=== PATIENT | female | born 1985 ===

== ENCOUNTER → 2018-06-30 | Outpatient (CLI) | payer BC ==
[2018-06-30 10:30] VITALS: BP 122/83; PULSE 76; RESP 18; TEMP 97.5; BMI 19.0
--- NOTE | 2018-06-30 11:20 | P.HPOB ---
History of Present Illness H&P Date: 06/30/18 Chief Complaint: The patient is here for her routine gynecologic exam. This is a 32-year-old with an LMP of 06/23/2018. The patient states she has regular menses every month. Over the past 2 to 3 months she has had occasional dyspareunia with sexual intercourse or immediately after sexual intercourse. She describes the discomfort as crampy pain which seems to resolve about 40 minutes after intercourse. This does not happen every time. She believes she had similar symptoms years ago and was told she had an ovarian cyst. Her his status post vasectomy. She is otherwise without complaints. Review of Systems She has lost about 10 pounds over the last few months and attributes this to increased stress. She denies respiratory, cardiac, or G.I. problems. Past Medical History Past Medical History: No Reported History Additional Past Medical History / Comment(s): Headaches. 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 She has had a ruptured ovarian cyst in the past. History of Any Multi-Drug Resistant Organisms: None Reported Past Surgical History: Section (x 3) Additional Past Surgical History / Comment(s): D&C times 2 for spontaneous abortions. 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 She has 3 adopted children in addition to her 3 biological children. She lives in [place] and her works in the [employer]. She recently moved from [place] (2017). - Past Family History Father Family Medical History: No Reported History Additional Family Medical History / Comment(s): Father has an autoimmune disorder. breast cancer PGM Mother Family Medical History: Cancer (Renal) Additional Family Medical History / Comment(s): breast cancer M aunt, M grandmother. Sister(s) Family Medical History: Cancer (Renal) Medications and Allergies Home Medications Medication Instructions Recorded Confirmed Type Ibuprofen 200 mg PO QID PRN 06/30/18 06/30/18 History Allergies Allergy/AdvReac Type Severity Reaction Status Date / Time No Known Allergies Allergy Verified 06/30/18 11:15 Exam Vital Signs Temp Pulse Resp BP 06/30/18 10:10 97.5 F L 76 18 122/83 Intake and Output 06/29/18 06/30/18 06/30/18 22:59 06:59 14:59 Other: Weight 50.349 kg Height 5'4", BMI 19.1. This is a well-developed well-nourished thin white female who is alert and oriented times 3 in no acute distress. HEENT: Within normal limits. NECK: Supple without mass or thyromegaly. CHEST AND LUNGS: Clear to auscultation. HEART: Regular rate and rhythm. BREASTS: Are without mass or discharge. AXILLARY EXAM: Negative for adenopathy. BACK: Negative for CVA tenderness. ABDOMEN: Soft, nontender, without palpable masses. PELVIC EXAM: Normal external genitalia. Cervix and vagina appear normal with small dark menstrual blood. There is no cervical motion tenderness. There is no unusual discharge. There is no evidence of prolapse. The uterus is midposition, nongravid size and nontender. There are no palpable adnexal masses or tenderness. The right ovary is palpable, but normal size presently 2.5 cm and is nontender. RECTAL EXAM: negative for mass or tenderness and is negative for occult blood. EXTREMITIES: Nontender. IMPRESSION: 1. 32-year-old female whose status post vasectomy with normal gynecologic exam. 2. Recent intermittent dyspareunia either during or after intercourse without any significant physical findings at this time. PLAN: 1. Pap smear was performed. 2. Self breast awareness was discussed. 3. Because of her family history of recommended that she start screening mammograms at age 34. 4. Pelvic ultrasound will be scheduled. 5. I have recommended that she established with the primary care physician. 6. She will return in one year and PRN.
== END | disposition home or self-care (01) ==
LOC: WWCWWP 09:54
PROVIDERS: ATTEND Obstetrics & Gynecology
DX: Z53.9 Procedure and treatment not carried out, unspecified reason (principal)

== ENCOUNTER → 2018-07-26 | Outpatient (CLI) | payer BC ==
--- NOTE | 2018-07-26 11:03 | US ---
EXAMINATION TYPE: US pelvic complete DATE OF EXAM: 07/26/2018 COMPARISON: NONE CLINICAL HISTORY: N94.1 Dyspareunia. hx of ovarian cysts. 3 c-sections. Pain during intercourse. TECHNIQUE: Transabdominal (TA). Transabdominal sonographic images of the pelvis were acquired. Date of LMP: 07/20/2018, EXAM MEASUREMENTS: Uterus: 8.6 x 4.4 x 3.7 cm Endometrial Stripe: 0.4 cm Right Ovary: 3.1 x 2.1 x 1.8 cm Left Ovary: 4.0 x 2.3 x 2.0 cm 1. Uterus: Anteverted wnl 2. Endometrium: wnl 3. Right Ovary: follicle seen 4. Left Ovary: follicles seen 5. Bilateral Adnexa: wnl 6. Posterior cul-de-sac: no free fluid IMPRESSION: 1. Ovarian follicles as noted.
--- NOTE | 2018-07-28 13:08 | P.PN ---
Progress Note - Text Progress Note Date: 07/28/18 OUTPATIENT FOLLOW-UP NOTE TEST(S)/RESULTS: pelvic ultrasound on 07/26/2018 showed small ovarian follicles and was otherwise unremarkable METHOD OF NOTIFICATION: the patient asked that I leave results on her voicemail. A message regarding the unremarkable pelvic ultrasound was left on her voicemail. PATIENT COMMENTS: [] DIAGNOSIS: cramping associated with sexual intercourse that typically occurs after intercourse. Unremarkable pelvic ultrasound DISCUSSION: on her voicemail, I left suggestions of possibly trying ibuprofen prior to sexual activity, trial of using condoms or withdrawal to see if this helps the postcoital cramping. PLAN: if she continues to have these symptoms, I have asked her to call back or make an appointment at which time we can consider referral for possible laparoscopic examination.
== END | disposition home or self-care (01) ==
LOC: RADUSWWP 09:37
PROVIDERS: ATTEND Obstetrics & Gynecology
DX: N94.10 Unspecified dyspareunia (principal)
CPT/HCPCS: 76856

== ENCOUNTER 2018-11-07 19:00 | Emergency (ER) | payer BC ==
[2018-11-07] MEDS ORDERED: DIAZEPAM 5 MG/ML 2 ML INJ IVP STA (19:35)
[2018-11-07] MEDS ORDERED: MECLIZINE 25 MG TAB PO STA (19:35)
--- NOTE | 2018-11-07 19:49 | ED ---
General Adult HPI - General Source: patient, RN notes reviewed Mode of arrival: ambulatory Limitations: no limitations <Conner Pan - Last Filed: 11/07/18 20:10> <Nacho Perry - Last Filed: 11/07/18 20:54> - General Chief complaint: Dizziness Stated complaint: Dizziness, nauseated Time Seen by Provider: 11/07/18 19:00 - History of Present Illness Initial comments: This is a 33-year-old female who presents emergency Department complaining of dizziness. Patient states she's had episodes of this for years and has never been evaluated. Patient states normally only last a short period time but today 's been ongoing since Thursday and she is getting to the point she still nauseated she is afraid she is started vomiting. Patient states the symptoms are definitely worse with movement of her head per patient states that she sits still the symptoms subside. Patient denies any headache. Patient denies any numbness weakness per patient denies any tinnitus per patient denies any change in her hearing. Patient denies any palpitations chest pain difficulty breathing first breath per patient denies any upper respiratory infection recently. Patient denies any abdominal pain patient denies any vomiting but is very nauseous. (Conner Pan) - Related Data Home Medications Medication Instructions Recorded Confirmed Ibuprofen 400 mg PO QID PRN 06/30/18 11/07/18 Meclizine [Antivert] 25 mg PO ONCE 11/07/18 11/07/18 Previous Rx's Medication Instructions Recorded Meclizine [Antivert] 25 mg PO TID PRN #15 tab 11/07/18 Allergies Allergy/AdvReac Type Severity Reaction Status Date / Time No Known Allergies Allergy Verified 11/07/18 19:25 Review of Systems ROS Other: All systems not noted in ROS Statement are negative. <Conner Pan - Last Filed: 11/07/18 20:10> ROS Other: All systems not noted in ROS Statement are negative. <Nacho Perry - Last Filed: 11/07/18 20:54> ROS Statement: Those systems with pertinent positive or pertinent negative responses have been documented in the HPI. Past Medical History Past Medical History: No Reported History Additional Past Medical History / Comment(s): Headaches. 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 She has had a ruptured ovarian cyst in the past. History of Any Multi-Drug Resistant Organisms: None Reported, C-DIFF Date of last positivie culture/infection: 2011 Past Surgical History: Section Additional Past Surgical History / Comment(s): D&C times 2 for spontaneous abortions. Past Anesthesia/Blood Transfusion Reactions: Postoperative Nausea & Vomiting ( PONV) Past Psychological History: No Psychological Hx Reported Smoking Status: Former smoker Past Alcohol Use History: Occasional Past Drug Use History: None Reported - Past Family History Father Family Medical History: No Reported History Additional Family Medical History / Comment(s): Father has an autoimmune disorder. breast cancer PGM Mother Family Medical History: Cancer (Renal) Additional Family Medical History / Comment(s): breast cancer M aunt, M grandmother. Sister(s) Family Medical History: Cancer (Renal) <Conner Pan - Last Filed: 11/07/18 20:10> General Exam Limitations: no limitations <Conner Pan - Last Filed: 11/07/18 20:10> <Nacho Perry - Last Filed: 11/07/18 20:54> - General Exam Comments Initial Comments: GENERAL: Patient is well-developed and well-nourished. Patient is nontoxic and well- hydrated and is in mild distress. ENT: Neck is soft and supple. No significant lymphadenopathy is noted. Oropharynx is clear. Moist mucous membranes. Neck has full range of motion without eliciting any pain. EYES: The sclera were anicteric and conjunctiva were pink and moist. Extraocular movements were intact and pupils were equal round and reactive to light. Eyelids were unremarkable. PULMONARY: Unlabored respirations. Good breath sounds bilaterally. No audible rales rhonchi or wheezing was noted. CARDIOVASCULAR: There is a regular rate and rhythm without any murmurs gallops or rubs. ABDOMEN: Soft and nontender with normal bowel sounds. No palpable organomegaly was noted. There is no palpable pulsatile mass. SKIN: Skin is clear with no lesions or rashes and otherwise unremarkable. NEUROLOGIC: Patient is alert and oriented x3. Cranial nerves II through XII are grossly intact. Motor and sensory are also intact. Normal speech, volume and content. Symmetrical smile. Cerebellar exam grossly intact. MUSCULOSKELETAL: Normal extremities with adequate strength and full range of motion. No lower extremity swelling or edema. No calf tenderness. LYMPHATICS: No significant lymphadenopathy is noted PSYCHIATRIC: Normal psychiatric evaluation. (Conner Pan) Vital Signs 11/07/18 11/07/18 11/07/18 19:06 19:49 20:34 Temperature 97.7 F Pulse Rate 79 87 Respiratory 18 17 16 Rate Blood Pressure 149/93 125/80 O2 Sat by Pulse 100 98 Oximetry Medical Decision Making - Lab Data Result diagrams: 11/07/18 19:35 11/07/18 19:35 <Conner Pan - Last Filed: 11/07/18 20:10> - Lab Data Result diagrams: 11/07/18 19:35 11/07/18 19:35 <Nacho Perry - Last Filed: 11/07/18 20:54> - Medical Decision Making EKG shows normal sinus rhythm at 93 bpm DC interval 116 QRS is 90 QT interval 356 QTC is 442. Patient's EKG shows no ST segment elevation or depression or T wave abnormalities are noted. Dr. Snell will be taking over the care of this patient at 8 PM (Conner Pan) This patient was signed out to me pending the results of the computed tomography scan. I have reviewed this and the radiology read. I have reevaluated the patient and she is feeling better. We'll have the patient follow up with neurology for further evaluation of her chronic intermittent vertigo symptoms. We also discussed the return parameters. (Nacho Perry) - Lab Data Lab Results 11/07/18 11/07/18 11/07/18 Range/Units 19:35 19:35 19:35 WBC 6.9 (3.8-10.6) k/uL RBC 4.57 (3.80-5.40) m/uL Hgb 13.6 (11.4-16.0) gm/dL Hct 42.1 (34.0-46.0) % MCV 92.0 (80.0-100.0) fL MCH 29.8 (25.0-35.0) pg MCHC 32.4 (31.0-37.0) g/dL RDW 12.3 (11.5-15.5) % Plt Count 225 (150-450) k/uL Neutrophils % 66 % Lymphocytes % 26 % Monocytes % 4 % Eosinophils % 2 % Basophils % 0 % Neutrophils # 4.5 (1.3-7.7) k/uL Lymphocytes # 1.8 (1.0-4.8) k/uL Monocytes # 0.3 (0-1.0) k/uL Eosinophils # 0.1 (0-0.7) k/uL Basophils # 0.0 (0-0.2) k/uL PT (9.0-12.0) sec INR (<1.2) APTT (22.0-30.0) sec Sodium 140 (137-145) mmol/L Potassium 3.9 (3.5-5.1) mmol/L Chloride 109 H (98-107) mmol/L Carbon Dioxide 22 (22-30) mmol/L Anion Gap 9 mmol/L BUN 15 (7-17) mg/dL Creatinine 0.77 (0.52-1.04) mg/dL Est GFR (CKD-EPI)AfAm >90 (>60 ml/min/1.73 sqM) Est GFR (CKD-EPI)NonAf >90 (>60 ml/min/1.73 sqM) Glucose 94 (74-99) mg/dL Calcium 9.5 (8.4-10.2) mg/dL Magnesium 2.1 (1.6-2.3) mg/dL Total Bilirubin 1.4 H (0.2-1.3) mg/dL AST 23 (14-36) U/L ALT 17 (9-52) U/L Alkaline Phosphatase 50 (38-126) U/L Total Creatine Kinase 71 (30-135) U/L Troponin I <0.012 (0.000-0.034) ng/mL Total Protein 7.7 (6.3-8.2) g/dL Albumin 4.7 (3.5-5.0) g/dL 11/07/18 Range/Units 19:35 WBC (3.8-10.6) k/uL RBC (3.80-5.40) m/uL Hgb (11.4-16.0) gm/dL Hct (34.0-46.0) % MCV (80.0-100.0) fL MCH (25.0-35.0) pg MCHC (31.0-37.0) g/dL RDW (11.5-15.5) % Plt Count (150-450) k/uL Neutrophils % % Lymphocytes % % Monocytes % % Eosinophils % % Basophils % % Neutrophils # (1.3-7.7) k/uL Lymphocytes # (1.0-4.8) k/uL Monocytes # (0-1.0) k/uL Eosinophils # (0-0.7) k/uL Basophils # (0-0.2) k/uL PT 10.5 (9.0-12.0) sec INR 1.0 (<1.2) APTT 27.1 (22.0-30.0) sec Sodium (137-145) mmol/L Potassium (3.5-5.1) mmol/L Chloride (98-107) mmol/L Carbon Dioxide (22-30) mmol/L Anion Gap mmol/L BUN (7-17) mg/dL Creatinine (0.52-1.04) mg/dL Est GFR (CKD-EPI)AfAm (>60 ml/min/1.73 sqM) Est GFR (CKD-EPI)NonAf (>60 ml/min/1.73 sqM) Glucose (74-99) mg/dL Calcium (8.4-10.2) mg/dL Magnesium (1.6-2.3) mg/dL Total Bilirubin (0.2-1.3) mg/dL AST (14-36) U/L ALT (9-52) U/L Alkaline Phosphatase (38-126) U/L Total Creatine Kinase (30-135) U/L Troponin I (0.000-0.034) ng/mL Total Protein (6.3-8.2) g/dL Albumin (3.5-5.0) g/dL Disposition <Conner Pan - Last Filed: 11/07/18 20:10> Is patient prescribed a controlled substance at d/c from ED?: No <Nacho Perry - Last Filed: 11/07/18 20:54> Clinical Impression: Vertigo Disposition: HOME SELF-CARE Condition: Good Instructions: Dizziness (ED) Prescriptions: Meclizine [Antivert] 25 mg PO TID PRN #15 tab PRN Reason: Vertigo Referrals: None,Stated [Primary Care Provider] - 1-2 days Pattie Cuevas MD [STAFF PHYSICIAN] - 1-2 days
[2018-11-07 19:56] LABS: Basophils % (A) 0 %; Eosinophils # (A) 0.1 k/uL (0-0.7); Eosinophils % (A) 2 %; HCT 42.1 % (34.0-46.0); HGB 13.6 gm/dL (11.4-16.0); Lymphocytes # (A) 1.8 k/uL (1.0-4.8); Lymphocytes % (A) 26 %; MCH 29.8 pg (25.0-35.0); MCHC 32.4 g/dL (31.0-37.0); Mean Platelet Volume 7.1; Monocytes # (A) 0.3 k/uL (0-1.0); Monocytes % (A) 4 %; Neutrophils # (A) 4.5 k/uL (1.3-7.7); Neutrophils % (A) 66 %; Platelet Count 225 k/uL (150-450); RBC 4.57 m/uL (3.80-5.40); RDW 12.3 % (11.5-15.5); WBC 6.9 k/uL (3.8-10.6)
[2018-11-07 20:08] LABS: ALT 17 U/L (9-52); AST 23 U/L (14-36); Albumin 4.7 g/dL (3.5-5.0); Alkaline Phosphatase 50 U/L (38-126); Anion Gap 9 mmol/L; Blood Urea Nitrogen 15 mg/dL (7-17); Calcium 9.5 mg/dL (8.4-10.2); Carbon Dioxide 22 mmol/L (22-30); Chloride 109 mmol/L (98-107); Glucose 94 mg/dL (74-99); Magnesium 2.1 mg/dL (1.6-2.3); Potassium 3.9 mmol/L (3.5-5.1); Sodium 140 mmol/L (137-145); Total Bilirubin 1.4 mg/dL (0.2-1.3); Total Protein 7.7 g/dL (6.3-8.2)
[2018-11-07 20:11] LABS: Creatine Kinase 71 U/L (30-135); Partial Thromboplastin Time 27.1 sec (22.0-30.0); Prothrombin Time 10.5 sec (9.0-12.0)
--- NOTE | 2018-11-07 20:12 | CT ---
EXAMINATION TYPE: CT brain wo con DATE OF EXAM: 11/07/2018 COMPARISON: None HISTORY: Dizziness x2 days CT DLP: 1032.4 mGycm. Automated Exposure Control for Dose Reduction was Utilized. TECHNIQUE: CT scan of the head is performed without contrast. FINDINGS: Ventricles and sulci appear normal. There is no mass effect nor midline shift. There is no sign of intracranial hemorrhage. The calvarium is intact. IMPRESSION: Normal head CT scan.
--- NOTE | 2018-11-07 20:15 | XR ---
EXAMINATION TYPE: XR chest 2V DATE OF EXAM: 11/07/2018 COMPARISON: NONE HISTORY: Dizziness and chest pain TECHNIQUE: Frontal and lateral views of the chest are obtained. FINDINGS: Heart and mediastinum are normal. Lungs are clear. Diaphragm is normal. Bony thorax appear s normal. There are chest leads. IMPRESSION: Normal chest
[2018-11-07 20:23] LABS: Troponin I <0.012 ng/mL (0.000-0.034)
[2018-11-07 20:54] LABS: Creatine Kinase MB 0.4 ng/mL (0.0-2.4)
[2018-11-07 21:09] VITALS: BP 117/78; PULSE 71; RESP 17; TEMP 98.5
== END 2018-11-07 21:00 | disposition home or self-care (01) ==
LOC: EC 19:00
DX: R42 Dizziness and giddiness (principal); R11.2 Nausea with vomiting, unspecified; Z87.891 Personal history of nicotine dependence; Z79.899 Other long term (current) drug therapy
CPT/HCPCS: 36415; 93005; 80053; 82550; 82553; 83735; 84484; 85025; 85610; 85730; 71046; 70450; 99284; 96374; J3360

== ENCOUNTER 2019-01-19 11:00 | Day surgery (SDC) | payer BC ==
[2019-01-17 10:29] VITALS: BMI 19.7
[~2019-01-19 11:00] MED LIST: LACTATED RINGERS 1,000 ML IV SCH
[2019-01-19 12:16] VITALS: TEMP 97.6
[2019-01-19] MEDS ORDERED: PROPOFOL 10 MG/ML 20 ML VIAL IV ONE (12:42)
[2019-01-19] MEDS ORDERED: ONDANSETRON 4 MG/2 ML VIAL ONE (12:42)
[2019-01-19] MEDS ORDERED: LIDOCAINE 1% INJ 10MG/ML (20 ML MDV) ONE (12:42)
--- NOTE | 2019-01-19 12:52 | P.PCN ---
Date of Procedure: 01/19/19 Procedure(s) Performed: BRIEF HISTORY: Patient is a 33-year-old, pleasant, white female, scheduled for an upper endoscopy as a part of evaluation of globus-like sensation in her throat area for the last 6 months duration. She denies any dysphagia. He occasionally has heartburn and she was treated with H2 blockers for few weeks with no help.. PROCEDURE PERFORMED: Esophagogastroduodenoscopy with biopsy PREOPERATIVE DIAGNOSIS: Globus sensation her throat. IV sedation per anesthesia. PROCEDURE: After informed consent was obtained, the patient was brought into the endoscopy unit. IV sedation was administered by Anesthesia under continuous monitoring. Initially the Olympus GIF-140 video endoscope was inserted into the mouth. Esophagus intubated without any difficulty. It was gradually advanced into the stomach and duodenum and carefully examined. The bulb and the second part of the duodenum appeared normal. The scope at this time was withdrawn to the stomach, adequately insufflated with air, and upon careful examination, mucosa of the antrum, body, cardia and the fundus appeared normal. The scope was then withdrawn into the esophagus. The GE junction was located at 39 cm from the incisors. The esophagus appeared normal. There were no erosions or ulcerations seen. Multiple biopsies were done from esophagus to rule out years of age esophagitis. The proximal cervical esophagus was carefully examined and appeared normal and the patient tolerated the procedure well. IMPRESSION: 1. Normal-appearing esophagus with no evidence of esophagitis or esophageal stricture. 2. Normal-appearing stomach and duodenum. RECOMMENDATIONS: The findings of this examination were discussed with the patient as well as a family. She was advised to follow with the biopsy results.
[2019-01-19 13:14] VITALS: BP 11/76; PULSE 54; RESP 18
== END 2019-01-19 13:35 | disposition home or self-care (01) ==
LOC: ORWHC2ENDO 11:00
PROVIDERS: ATTEND Internal Medicine Gastroenterology
DX: F45.8 Other somatoform disorders (principal); R12 Heartburn; K21.9 Gastro-esophageal reflux disease without esophagitis; Z79.1 Long term (current) use of non-steroidal anti-inflammatories (NSAID); Z79.899 Other long term (current) drug therapy
CPT/HCPCS: 81025; 43239; J2405; J2001; J2704

== ENCOUNTER → 2019-09-13 | Outpatient (CLI) | payer BC ==
[2019-09-13 16:03] VITALS: BP 122/77; PULSE 73; RESP 16; TEMP 98.2; BMI 20.5
--- NOTE | 2019-09-13 17:14 | P.HPOB ---
History of Present Illness H&P Date: 09/13/19 Chief Complaint: The patient is here for her routine gynecologic exam. This is a 33-year-old with an LMP of 08/30/2019. The patient's is status post vasectomy. The patient continues to have occasional dyspareunia, but this seems to be not a major problem. She has noticed it on occasion after her menstrual period. She had a pelvic ultrasound last year which was unremarkable. She is otherwise without complaints. Review of Systems She is getting about 9 pounds over the last year. She denies respiratory or cardiac problems. GI: Occasional diarrhea about once a week. Past Medical History Past Medical History: GERD/Reflux Additional Past Medical History / Comment(s): MIGRAINES, HX OF Peptic Ulcer, ANEMIA and vertigo. 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 Previous ruptured ovarian cyst. History of Any Multi-Drug Resistant Organisms: None Reported Date of last positivie culture/infection: 2011 Past Surgical History: Section Additional Past Surgical History / Comment(s): D&C times 2 for spontaneous abortions., . X3. Past Anesthesia/Blood Transfusion Reactions: Motion Sickness, Postoperative Nausea & Vomiting (PONV) Past Psychological History: Anxiety Smoking Status: Former smoker Past Alcohol Use History: Occasional (2 per week) Additional Past Alcohol Use History / Comment(s): SMOKED YOUNG TEENAGER. 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 She has 3 adopted children in addition to her 3 biological children. 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 She lives in [place] and her works in the [employer] - Past Family History Father Additional Family Medical History / Comment(s): Father has an autoimmune disorder. breast cancer PGM and PGGM. Mother Family Medical History: Cancer Additional Family Medical History / Comment(s): Renal cancer. Maternal aunt had breast cancer and renal cancer. Sister(s) Additional Family Medical History / Comment(s): Precancerous breast cyst. Medications and Allergies Home Medications Medication Instructions Recorded Confirmed Type Meclizine [Antivert] 12.5 mg PO ONCE 09/13/19 09/13/19 History Allergies Allergy/AdvReac Type Severity Reaction Status Date / Time No Known Allergies Allergy Verified 09/13/19 15:57 Exam Vital Signs Temp Pulse Resp BP Pulse Ox 09/13/19 15:59 98.2 F 73 16 122/77 99 Intake and Output 09/13/19 09/13/19 09/13/19 06:59 14:59 22:59 Other: Weight 54.431 kg Height 5 feet 4 inches, weight 120 pounds, BMI 20.6. This is a well-developed well-nourished white female who is alert and oriented times 3 in no acute distress. HEENT: Within normal limits. NECK: Supple without mass or thyromegaly. CHEST AND LUNGS: Clear to auscultation. HEART: Regular rate and rhythm. BREASTS: Are without mass or discharge. AXILLARY EXAM: Negative for adenopathy. BACK: Negative for CVA tenderness. ABDOMEN: Soft, nontender, without palpable masses. PELVIC EXAM: Normal external genitalia. Cervix and vagina appear normal. There is no unusual discharge. There is no evidence of prolapse. The uterus is midposition, nongravid size and nontender. There are no palpable adnexal masses or tenderness. RECTAL EXAM: negative for mass or tenderness. EXTREMITIES: Nontender. IMPRESSION: 1. 33-year-old female whose is status post vasectomy with normal gynecologic exam. 2. History of occasional dyspareunia with no significant physical findings at this time and history of negative pelvic ultrasound on 07/26/2018. 3. Family history of breast cancer in multiple second-degree relatives. PLAN: 1. Pap smear was deferred since she had a normal one on 06/30/2018. 2. Self breast awareness was discussed with the patient. 3. We will plan on having her get a baseline screening mammogram in 1 year at age 34 because of her family history. 4. Osteoporosis prevention was discussed. I have stressed the importance of adequate calcium, vitamin D and regular exercise. Recommended amounts of calcium and vitamin D were also discussed. 5. She was instructed to make an appointment if she is having worsening dyspareunia. At that time we can consider referral for diagnostic laparoscopy. 6. She was advised to return in one year for her annual well woman exam.
--- NOTE | 2019-10-04 16:51 | P.PN ---
Progress Note - Text Progress Note Date: 10/04/19 The patient has called complaining of heavier menstrual periods. She states they are regular every month but they can be heavy for about 3 days during the beginning of each menstrual period. She sometimes has to change her tampons up to twice an hour. She has also noticed that her breasts can become very sore before each menstrual period. Impression: Hypermenorrhea Plan: Trial of meclofenamate sodium 100 mg by mouth 3 times a day when necessary for heavy menstrual flow up to 6 days per cycle. In electronic prescription will be sent to [facility] on [address]. She will call in approximately 3 months if she is not noticing significant improvement. If this is the case we can consider endometrial ablation as an option.
== END ==
LOC: WWCWWP 15:34
PROVIDERS: ATTEND Obstetrics & Gynecology
DX: Z53.9 Procedure and treatment not carried out, unspecified reason (principal)

== ENCOUNTER 2019-12-12 12:37 | Emergency (ER) | payer BC ==
[2019-12-12 12:45] VITALS: BP 150/86; TEMP 98.8
--- NOTE | 2019-12-12 14:14 | XR ---
EXAMINATION TYPE: XR chest 2V DATE OF EXAM: 12/12/2019 COMPARISON: CXR from 11/07/2018. HISTORY: Cough and congestion. TECHNIQUE: Frontal and lateral views of the chest are obtained. FINDINGS: There is no focal air space opacity, pleural effusion, or pneumothorax seen. The cardiac silhouette size is within normal limits. The osseous structures are intact. IMPRESSION: No suspicious acute airspace opacity. No significant change from prior.
--- NOTE | 2019-12-12 14:34 | ED ---
URI HPI - General Chief Complaint: Upper Respiratory Infection Stated Complaint: sinus drainage Time Seen by Provider: 12/12/19 12:58 Source: patient Mode of arrival: ambulatory Limitations: no limitations - History of Present Illness Initial Comments: Patient is a 34-year-old female presenting to emergency Department with complaints of sinus drainage and pressure has been increasing over the past week and a half. Patient is also complaining of fatigue, mild shortness of breath and cough. She states she went to an urgent care last week and they did do a strep and influenza which were both negative. They told her this is most likely viral in nature. Patient states she has been trying [id number] medications without relief of symptoms. She feels like her symptoms are worsening. She has no other complaints at this time. Patient denies fever, abdominal pain, nausea, vomiting. On arrival to the ER, her vital signs are stable. - Related Data Home Medications Medication Instructions Recorded Confirmed Meclizine [Antivert] 12.5 mg PO ONCE 09/13/19 09/13/19 Previous Rx's Medication Instructions Recorded Meclofenamate Sodium 100 mg PO TID PRN #30 capsule 10/04/19 Amoxicillin/Potassium Clav 1 tab PO BID 5 Days #10 tab 12/12/19 [Augmentin 875-125 Tablet] Allergies Allergy/AdvReac Type Severity Reaction Status Date / Time No Known Allergies Allergy Verified 09/13/19 15:57 Review of Systems ROS Statement: Those systems with pertinent positive or pertinent negative responses have been documented in the HPI. ROS Other: All systems not noted in ROS Statement are negative. Past Medical History Past Medical History: GERD/Reflux Additional Past Medical History / Comment(s): MIGRAINES, HX OF Peptic Ulcer, ANEMIA and vertigo. Previous ruptured ovarian cyst. History of Any Multi-Drug Resistant Organisms: None Reported Date of last positivie culture/infection: 2011 Past Surgical History: Section Additional Past Surgical History / Comment(s): D&C times 2 for spontaneous abo rtions., . X3. Past Anesthesia/Blood Transfusion Reactions: Motion Sickness, Postoperative Nausea & Vomiting (PONV) Past Psychological History: Anxiety Smoking Status: Former smoker Past Alcohol Use History: Occasional Past Drug Use History: None Reported - Past Family History Father Additional Family Medical History / Comment(s): Father has an autoimmune disorder. breast cancer PGM and PGGM. Mother Family Medical History: Cancer Additional Family Medical History / Comment(s): Renal cancer. Maternal aunt had breast cancer and renal cancer. Sister(s) Family Medical History: Cancer Additional Family Medical History / Comment(s): Precancerous breast cyst. General Exam - General Exam Comments Initial Comments: GENERAL: Well-appearing, well-nourished and in no acute distress. HEAD: Atraumatic, normocephalic. EYES: Pupils equal round and reactive to light, extraocular movements intact, sclera anicteric, conjunctiva are normal. ENT: TMs normal, nares patent, oropharynx clear without exudates. Moist mucous membranes. Pain with palpation over the maxillary sinuses bilaterally. NECK: Normal range of motion, supple without lymphadenopathy or JVD. LUNGS: Breath sounds clear to auscultation bilaterally and equal. No wheezes rales or rhonchi. HEART: Regular rate and rhythm without murmurs, rubs or gallops. ABDOMEN: Soft, nontender, normoactive bowel sounds. No guarding, no rebound. No masses appreciated. : Deferred EXTREMITIES: Normal range of motion, no pitting or edema. No clubbing or cyanosis. NEUROLOGICAL: Normal speech, normal gait. PSYCH: Normal mood, normal affect. SKIN: Warm, Dry, normal turgor, no rashes or lesions noted. Limitations: no limitations Course Vital Signs 12/12/19 12/12/19 12/12/19 12:42 12:44 13:44 Temperature 98.8 F Pulse Rate 85 78 Respiratory 18 20 20 Rate Blood Pressure 150/86 145/85 O2 Sat by Pulse 100 100 Oximetry 12/12/19 12/12/19 14:44 14:52 Temperature Pulse Rate 72 Respiratory 20 20 Rate Blood Pressure 150/86 O2 Sat by Pulse Oximetry Medical Decision Making - Medical Decision Making She is a 34-year-old female presenting with sinus type symptoms for the last week and a half. Patient to receive influenza and strep test at urgent care last week that were negative. Chest x-ray today shows no acute abnormalities. Discussed with patient this is likely a sinus infection. Patient be started on Augmentin for her symptoms. Patient will follow up with her PCP if symptoms persist. Patient is in agreement with this plan and care. Return parameters were discussed with the patient she verbalized understanding. Disposition Clinical Impression: Sinusitis Disposition: HOME SELF-CARE Condition: Stable Instructions (If sedation given, give patient instructions): Sinusitis (ED) Additional Instructions: Please return to the Emergency Department if symptoms worsen or any other concerns. Take Mobic as prescribed. May use Tylenol or Motrin for symptom control. Follow up with PCP if symptoms persist. Prescriptions: Amoxicillin/Potassium Clav [Augmentin 875-125 Tablet] 1 tab PO BID 5 Days #10 tab Is patient prescribed a controlled substance at d/c from ED?: No Referrals: Lidya Perez MD [Primary Care Provider] - 1-2 days
[2019-12-12 14:51] VITALS: RESP 20
[2019-12-12 14:52] VITALS: PULSE 72
== END 2019-12-12 14:53 | disposition home or self-care (01) ==
LOC: EC 12:37
DX: J32.9 Chronic sinusitis, unspecified (principal); Z87.891 Personal history of nicotine dependence
CPT/HCPCS: 71046; 99283

== ENCOUNTER 2020-07-19 15:34 | Emergency (ER) | payer BC ==
[2020-07-19 15:44] VITALS: BP 143/86; PULSE 91; RESP 18; TEMP 98.3
--- NOTE | 2020-07-19 15:51 | ED ---
ENT HPI - General Chief complaint: Dental/Oral Stated complaint: Dental Pain Time Seen by Provider: 07/19/20 15:45 Source: patient Mode of arrival: ambulatory Limitations: no limitations - History of Present Illness Initial comments: 34-year-old female presented for right posterior tooth/jaw pain and facial swelling. Patient states she has had aching in the right lower aspect of her jaw under her most posterior tooth. She states has been increasing for the past 2 days when she noticed now some mild right-sided lower facial swelling she denies swelling of the neck she denies swelling below the tongue denies a difficulty breathing swelling she denies any sore throat fevers chills or rashes. Patient is no additional complaints she denies . Patient denies any direct trauma to the area. Patient has no additional complaints. Upon arrival she appears well nontoxic in no acute distress. SHe is afebrile. - Related Data Home Medications Medication Instructions Recorded Confirmed Meclizine [Antivert] 12.5 mg PO ONCE 09/13/19 09/13/19 Previous Rx's Medication Instructions Recorded Meclofenamate Sodium 100 mg PO TID PRN #30 capsule 10/04/19 Amoxicillin/Potassium Clav 1 tab PO BID 5 Days #10 tab 12/12/19 [Augmentin 875-125 Tablet] Amoxicillin/Potassium Clav 1 tab PO Q12HR 7 Days #14 tab 07/19/20 [Augmentin 875-125 Tablet] Allergies Allergy/AdvReac Type Severity Reaction Status Date / Time No Known Allergies Allergy Verified 07/19/20 15:43 Review of Systems ROS Statement: Those systems with pertinent positive or pertinent negative responses have been documented in the HPI. ROS Other: All systems not noted in ROS Statement are negative. Past Medical History Past Medical History: GERD/Reflux Additional Past Medical History / Comment(s): MIGRAINES, HX OF Peptic Ulcer, ANEMIA and vertigo. Previous ruptured ovarian cyst. History of Any Multi-Drug Resistant Organisms: None Reported Date of last positivie culture/infection: 2011 Past Surgical History: Section Additional Past Surgical History / Comment(s): D&C times 2 for spontaneous abortions., . X3. Past Anesthesia/Blood Transfusion Reactions: Motion Sickness, Postoperative Kishore sea & Vomiting (PONV) Past Psychological History: Anxiety Smoking Status: Never smoker Past Alcohol Use History: Occasional Past Drug Use History: None Reported - Past Family History Father Additional Family Medical History / Comment(s): Father has an autoimmune disorder. breast cancer PGM and PGGM. Mother Family Medical History: Cancer Additional Family Medical History / Comment(s): Renal cancer. Maternal aunt had breast cancer and renal cancer. Sister(s) Family Medical History: Cancer Additional Family Medical History / Comment(s): Precancerous breast cyst. General Exam - General Exam Comments Initial Comments: General: The patient is awake and alert, in no distress, and does not appear acutely ill. Eye: Pupils are equal, round and reactive to light, extra-ocular movements are intact. No nystagmus. There is normal conjunctiva bilaterally. No signs of icterus. Ears, nose, mouth and throat: There are moist mucous membranes and no oral lesions. Cavity noted of the right lower tooth # 31, there is pain to percussion, there is no gum swelling, redness or fluctulance. No swelling below tongue or angle of mandible. No enlarged glands appreciated, uvula midline no redness of oropharynx. Patient does not appear toxic. no noted nuchal rigidity. Mild right sided facial swelling. Neck: The neck is supple, there is no tenderness or JVD. Musculoskeletal: Normal ROM, no tenderness. Strength 5/5. Sensation intact. Radial pulses equal bilaterally 2+. Neurological: A&O x 3. CN II-XII intact grossly, There are no obvious motor or sensory deficits. Coordination appears grossly intact. Speech is normal. Skin: Skin is warm and dry and no rashes or lesions are noted. Psychiatric: Cooperative, appropriate mood & affect, normal judgment. Limitations: no limitations Course Vital Signs 07/19/20 07/19/20 15:40 16:01 Temperature 98.3 F 98.3 F Pulse Rate 91 91 Respiratory 18 18 Rate Blood Pressure 143/86 143/86 O2 Sat by Pulse 100 100 Oximetry Medical Decision Making - Medical Decision Making exam concerning for dental infection, no signs of ludwigs angina or airway compromise at this time. patient denies will be treated with augmentin and is to f/u with dentist, corrina states she attempted to call dentist before coming here and cant get in for two week, recommended finding new dentist or calling back explaining concern for infection with more timely f/u. Patient is aware of return parameters and is agreeable to care plan and discharge. Disposition Clinical Impression: Pain, dental Disposition: HOME SELF-CARE Condition: Good Instructions (If sedation given, give patient instructions): Dental Abscess (ED), Toothache (ED) Additional Instructions: Please use medication as discussed. Please follow-up with dentist in next 2-3 days, return for increasing swelling/pain/fevers/swelling below tongue/difficulty breathing/rash. Please return to emergency room if the symptoms increase or worsen or for any other concerns. Prescriptions: Amoxicillin/Potassium Clav [Augmentin 875-125 Tablet] 1 tab PO Q12HR 7 Days #14 tab Is patient prescribed a controlled substance at d/c from ED?: No Referrals: Lidya Perez MD [Primary Care Provider] - 1-2 days Time of Disposition: 15:51
== END 2020-07-19 16:03 | disposition home or self-care (01) ==
LOC: EC 15:34
DX: K08.89 Other specified disorders of teeth and supporting structures (principal); Z79.899 Other long term (current) drug therapy
CPT/HCPCS: 99282

== ENCOUNTER 2020-07-20 06:54 | Emergency (ER) | payer BC ==
[2020-07-20 07:03] VITALS: BP 123/80; PULSE 94; RESP 18; TEMP 98.5
[2020-07-20] MEDS ORDERED: ONDANSETRON 4 MG ODT STARTER PACK 2 TAB BTL PO STA (07:33)
[2020-07-20] MEDS ORDERED: traMADol 50 MG STARTER PACK 3 TAB BTL PO STA (07:33)
--- NOTE | 2020-07-20 07:33 | ED ---
ENT HPI - General Chief complaint: ENT Stated complaint: Sore throat, jaw pain Time Seen by Provider: 07/20/20 07:16 Source: patient Mode of arrival: ambulatory Limitations: no limitations - History of Present Illness Initial comments: Patient is a 34-year-old female presenting to the emergency Department with complaints of right-sided dental pain increasing over the past 2 weeks. Patient states she did call her dentist was not able to get in for another 2 weeks. She did come to the ER yesterday for the same issue and was prescribed Augmentin. Patient states she has tried taking this twice now and has been nauseous and vomited shortly after both times. Patient states the pain is still increasing. She has been taking ibuprofen and Tylenol for this which does take the edge off. She denies any fever or chills, cough or shortness of breath. She is no further complaints at this time. Upon arrival to the ER, her vital signs are stable. - Related Data Home Medications Medication Instructions Recorded Confirmed Meclizine [Antivert] 12.5 mg PO ONCE 09/13/19 09/13/19 Previous Rx's Medication Instructions Recorded Meclofenamate Sodium 100 mg PO TID PRN #30 capsule 10/04/19 Amoxicillin/Potassium Clav 1 tab PO BID 5 Days #10 tab 12/12/19 [Augmentin 875-125 Tablet] Amoxicillin/Potassium Clav 1 tab PO Q12HR 7 Days #14 tab 07/19/20 [Augmentin 875-125 Tablet] Penicillin V Potassium [Pen Vee K] 500 mg PO QID 7 Days #28 tablet 07/20/20 Allergies Allergy/AdvReac Type Severity Reaction Status Date / Time amoxicillin [From Augmentin] AdvReac Nausea Verified 07/20/20 07:03 clavulanic acid AdvReac Nausea Verified 07/20/20 07:03 [From Augmentin] Review of Systems ROS Statement: Those systems with pertinent positive or pertinent negative responses have been documented in the HPI. ROS Other: All systems not noted in ROS Statement are negative. Past Medical History Past Medical History: GERD/Reflux Additional Past Medical History / Comment(s): MIGRAINES, HX OF Peptic Ulcer, ANEMIA and vertigo. Previous ruptured ovarian cyst. History of Any Multi-Drug Resistant Organisms: None Reported Date of last positivie culture/infection: 2011 Past Surgical History: Section Additional Past Surgical History / Comment(s): D&C times 2 for spontaneous abortions., . X3. Past Anesthesia/Blood Transfusion Reactions: Motion Sickness, Postoperative Nausea & Vomiting (PONV) Past Psychological History: Anxiety Smoking Status: Never smoker Past Alcohol Use History: Occasional Past Drug Use History: None Reported - Past Family History Father Additional Family Medical History / Comment(s): Father has an autoimmune disorder. breast cancer PGM and PGGM. Mother Family Medical History: Cancer Additional Family Medical History / Comment(s): Renal cancer. Maternal aunt had breast cancer and renal cancer. Sister(s) Family Medical History: Cancer Additional Family Medical History / Comment(s): Precancerous breast cyst. General Exam - General Exam Comments Initial Comments: GENERAL: Patient is well-developed and well-nourished. Patient is nontoxic and in no acute distress. HEAD: Atraumatic, normocephalic. EYES: Pupils equal round and reactive to light, extraocular movements intact, sclera anicteric, conjunctiva are normal. Eyelids were unremarkable. ENT: TMs normal, nares patent, oropharynx clear without exudates. Moist mucous membranes. No visible dental abscess seen. Pain with palpation of the right lower molars, mild erythema of the gumline. NECK: Normal range of motion, supple without lymphadenopathy or JVD. LUNGS: Unlabored respirations. Breath sounds clear to auscultation bilaterally and equal. No wheezes rales or rhonchi. HEART: Regular rate and rhythm without murmurs, rubs or gallops. ABDOMEN: Soft, nontender, normoactive bowel sounds. No guarding, no rebound. No masses appreciated. : Deferred MUSCULOSKELETAL: Normal extremities with adequate strength and normal range of motion, no pitting or edema. No clubbing or cyanosis. NEUROLOGICAL: Patient is alert and oriented x 3. Motor and sensory are also intact. Cranial nerves II through XII grossly intact. Symmetrical smile. Normal speech, normal gait. PSYCH: Normal mood, normal affect. SKIN: Warm, Dry, normal turgor, no rashes or lesions noted. Limitations: no limitations Course Vital Signs 07/20/20 07:00 Temperature 98.5 F Pulse Rate 94 Respiratory 18 Rate Blood Pressure 123/80 O2 Sat by Pulse 98 Oximetry Medical Decision Making - Medical Decision Making Patient is a 34-year-old female here for right-sided dental pain has been increasing over the past 2 weeks. She was here yesterday for same complaint and was prescribed Augmentin however she has been nauseous and vomiting with this medication. I do not see visible abscess to drain on exam. There is no significant swelling or fever. I will switch her antibiotic to penicillin and will also prescribe her a pain medicine here today in the ER as well as some Zofran. Patient also noted that she has had a history of strain of strep, we did do a strep test today, culture is pending. Patient is agreement this plan of care. She'll follow-up with her dentist. Return parameters were discussed with the patient and she verbalized understanding. Disposition Clinical Impression: Pain, dental Disposition: HOME SELF-CARE Condition: Stable Instructions (If sedation given, give patient instructions): Dental Abscess (ED) Additional Instructions: Please return to the Emergency Department if symptoms worsen or any other concerns. Take antibiotic as prescribed. May alternate between Tylenol and Motrin for discomfort. Follow-up with dentist as discussed. Prescriptions: Penicillin V Potassium [Pen Vee K] 500 mg PO QID 7 Days #28 tablet Is patient prescribed a controlled substance at d/c from ED?: No Referrals: Lidya Perez MD [Primary Care Provider] - 1-2 days
== END 2020-07-20 07:49 | disposition home or self-care (01) ==
LOC: EC 06:54
DX: K08.89 Other specified disorders of teeth and supporting structures (principal); R11.2 Nausea with vomiting, unspecified; Z88.0 Allergy status to penicillin
CPT/HCPCS: 87081; 87430; 99283

== ENCOUNTER → 2020-10-10 | Outpatient (CLI) | payer BC ==
[2020-10-10 09:45] VITALS: BP 130/80; PULSE 74; RESP 16; TEMP 98.5
--- NOTE | 2020-10-10 10:20 | P.HPOB ---
History of Present Illness H&P Date: 10/10/20 Chief Complaint: The patient is here for her routine gynecologic exam and ma mmogram. This is a 35-year-old with an LMP of 09/17/2020. The patient's is status post vasectomy. Menstrual periods are monthly, but can fluctuate by a few days each month. She states she has used the meclofenamate sodium infrequently as needed for heavy menstrual flow and this is helpful for her heavy menstrual days. She thinks she had an ovarian cyst a few months ago when she had some midcycle dyspareunia. This has resolved. Review of Systems The patient has gained 5 pounds over the last year. She denies respiratory, cardiac, or G.I. problems. She has had occasional anxiety. Past Medical History Past Medical History: GERD/Reflux Additional Past Medical History / Comment(s): MIGRAINES, HX OF Peptic Ulcer, ANEMIA and vertigo. 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 History of Any Multi-Drug Resistant Organisms: None Reported Date of last positivie culture/infection: 2011 Past Surgical History: Section Additional Past Surgical History / Comment(s): D&C times 2 for spontaneous abortions., . X3. EGD 2019. Past Anesthesia/Blood Transfusion Reactions: Motion Sickness, Postoperative Naus ea & Vomiting (PONV) Past Psychological History: Anxiety Smoking Status: Former smoker Past Alcohol Use History: Occasional (2 per week) Additional Past Alcohol Use History / Comment(s): SMOKED YOUNG TEENAGER. 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 She has 3 adopted children in addition to 3 biological children. 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 - Past Family History Father Additional Family Medical History / Comment(s): Father has an autoimmune disorder. breast cancer PGM and PGGM. Mother Family Medical History: Cancer Additional Family Medical History / Comment(s): Renal cancer. Maternal aunt had breast cancer and renal cancer. Sister(s) Family Medical History: Cancer Additional Family Medical History / Comment(s): Precancerous breast cyst. Medications and Allergies Home Medications Medication Instructions Recorded Confirmed Type Meclizine [Antivert] 12.5 mg PO ONCE 09/13/19 10/10/20 History Meclofenamate Sodium 100 mg PO TID PRN #30 capsule 10/10/20 Rx Plexus 1 packet PO DAILY 10/10/20 10/10/20 History Allergies Allergy/AdvReac Type Severity Reaction Status Date / Time amoxicillin [From Augmentin] AdvReac Nausea Verified 10/10/20 09:21 clavulanic acid AdvReac Nausea Verified 10/10/20 09:21 [From Augmentin] Exam Vital Signs Temp Pulse Resp BP Pulse Ox 10/10/20 09:23 98.5 F 74 16 130/80 98 Intake and Output 10/09/20 10/10/20 10/10/20 22:59 06:59 14:59 Other: Weight 56.699 kg Height 5 feet 4 inches, weight 125 pounds, BMI 21.5. This is a well-developed well-nourished white female who is alert and oriented times 3 in no acute distress. HEENT: Within normal limits. NECK: Supple without mass or thyromegaly. CHEST AND LUNGS: Clear to auscultation. HEART: Regular rate and rhythm. BREASTS: Are without mass or discharge. AXILLARY EXAM: Negative for adenopathy. BACK: Negative for CVA tenderness. ABDOMEN: Soft, nontender, without palpable masses. PELVIC EXAM: Normal external genitalia. Cervix and vagina appear normal. Cervix appears nulliparous. There is no unusual discharge. There is no evidence of prolapse. The uterus is multiparous, nongravid size, is anteverted and nontender. There are no palpable adnexal masses or tenderness. RECTAL EXAM: negative for mass or tenderness. EXTREMITIES: Nontender. IMPRESSION: 1. 35-year-old premenopausal female whose is status post vasectomy with normal gynecologic exam. 2. Mild hypermenorrhea improved with meclofenamate sodium. 3. Family history of breast cancer in 3 second-degree relatives. PLAN: 1. Pap smear co-testing was performed. 2. Self breast awareness was discussed with the patient. 3. Screening baseline mammogram will be done today because of her strong family history. 4. Osteoporosis prevention was discussed. I have stressed the importance of adequate calcium, vitamin D and regular exercise. Recommended amounts of calcium and vitamin D were also discussed. 5. Continue meclofenamate sodium when necessary for heavy menstrual flow. The electronic prescription has been sent to [facility] on [facility]. 6. She was advised to return in one year for her annual well woman exam.
--- NOTE | 2020-10-10 10:34 | MM ---
Reason for exam: screening (asymptomatic). Baseline mammogram. History: Family history of breast cancer in sister and breast cancer in maternal aunt at age 60. Physical Findings: Dr. Paul did breast exam. MG 3D Screening Mammo W/Cad Bilateral CC, MLO, and XCCL view(s) were taken. The breast tissue is heterogeneously dense. This may lower the sensitivity of mammography. There is no discrete abnormality. These results were verbally communicated with the patient and result sheet given to the patient on 10/10/20. ASSESSMENT: Negative, BI-RAD 1 RECOMMENDATION: Routine screening mammogram of both breasts at age 39.
== END | disposition home or self-care (01) ==
LOC: WWCWWP 09:13
PROVIDERS: ATTEND Obstetrics & Gynecology
DX: Z12.31 Encounter for screening mammogram for malignant neoplasm of breast (principal)
CPT/HCPCS: 77063; 77067

== ENCOUNTER 2020-11-04 16:03 | Emergency (ER) | payer BC ==
[2020-11-04 16:10] VITALS: RESP 18; TEMP 98.1
--- NOTE | 2020-11-04 16:24 | ED ---
Chest Pain HPI - General Chief Complaint: Chest Pain Stated Complaint: chest pain Time Seen by Provider: 11/04/20 16:11 Source: patient Mode of arrival: ambulatory Limitations: no limitations - History of Present Illness Initial Comments: 35-year-old female presenting to the emergency department with a chief complaint of chest pain. Patient states her symptoms began earlier this morning while she was at [employer]. Patient reports she started developing a dull ache under her right rib in the right upper quadrant abdominal area. Patient reports the pain feels like dull and sharp and alternating pattern. She denies any alleviating or aggravating factors. Denies any associated shortness of breath does report some nausea but no vomiting. Denies any constipation or diarrhea. Denies any vaginal urinary symptoms. Does have surgical history of multiple C-sections and D&C. Denies any back pain. Patient reports she eats a lot of fatty food. Sta neri that most of her foot is fried. - Related Data Home Medications Medication Instructions Recorded Confirmed Ibuprofen [Motrin Ib] 400 mg PO Q8HR PRN 11/04/20 11/04/20 Meclizine HCl 25 mg PO Q6H PRN 11/04/20 11/04/20 Allergies Allergy/AdvReac Type Severity Reaction Status Date / Time amoxicillin [From Augmentin] AdvReac Nausea Verified 11/04/20 16:54 clavulanic acid AdvReac Nausea Verified 11/04/20 16:54 [From Augmentin] Review of Systems ROS Statement: Those systems with pertinent positive or pertinent negative responses have been documented in the HPI. ROS Other: All systems not noted in ROS Statement are negative. EKG Findings - EKG Comments: EKG Findings:: Sinus rhythm with no ST or T-wave changes. Ventricular rate 92, AL 116, QRS 82, QTC 422. Past Medical History Past Medical History: GERD/Reflux Additional Past Medical History / Comment(s): MIGRAINES, HX OF Peptic Ulcer, ANEMIA and vertigo. 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 History of Any Multi-Drug Resistant Organisms: None Reported Date of last positivie culture/infection: 2011 Past Surgical History: Section Additional Past Surgical History / Comment(s): D&C times 2 for spontaneous a bortions., . X3. EGD 2019. Past Anesthesia/Blood Transfusion Reactions: Motion Sickness, Postoperative Nausea & Vomiting (PONV) Past Psychological History: Anxiety Smoking Status: Former smoker Past Alcohol Use History: Occasional Past Drug Use History: None Reported - Past Family History Father Additional Family Medical History / Comment(s): Father has an autoimmune disorder. breast cancer PGM and PGGM. Mother Family Medical History: Cancer Additional Family Medical History / Comment(s): Renal cancer. Maternal aunt had breast cancer and renal cancer. Sister(s) Family Medical History: Cancer Additional Family Medical History / Comment(s): Precancerous breast cyst. General Exam Limitations: no limitations General appearance: alert, in no apparent distress Head exam: Present: atraumatic, normocephalic, normal inspection Eye exam: Present: normal appearance, PERRL, EOMI Pupils: Present: normal accommodation ENT exam: Present: normal exam, normal oropharynx, mucous membranes moist, TM's normal bilaterally, normal external ear exam Neck exam: Present: normal inspection, full ROM. Absent: tenderness Respiratory exam: Present: normal lung sounds bilaterally. Absent: respiratory distress, wheezes, rales, rhonchi, stridor, chest wall tenderness Cardiovascular Exam: Present: regular rate, normal rhythm, normal heart sounds. Absent: systolic murmur, diastolic murmur GI/Abdominal exam: Present: soft, tenderness (Right upper quadrant abdominal pain. Positive Covington sign.), normal bowel sounds. Absent: distended, guarding, rebound, rigid Extremities exam: Present: normal inspection, full ROM, normal capillary refill. Absent: tenderness, pedal edema, joint swelling, calf tenderness Back exam: Present: normal inspection, full ROM. Absent: tenderness, CVA tend erness (R), CVA tenderness (L) Neurological exam: Present: alert, oriented X3, normal gait Psychiatric exam: Present: normal affect, normal mood. Absent: depressed, agitated Skin exam: Present: warm, dry, intact, normal color Course Vital Signs 11/04/20 11/04/20 11/04/20 16:06 16:46 17:00 Temperature 98.1 F Pulse Rate 124 H 101 H 77 Respiratory 18 18 Rate Blood Pressure 154/89 143/98 O2 Sat by Pulse 97 100 Oximetry 11/04/20 17:30 Temperature Pulse Rate 80 Respiratory 18 Rate Blood Pressure 127/90 O2 Sat by Pulse 99 Oximetry Chest Pain MDM - MDM 35-year-old female presenting to emergency Department with a chief complaint of chest pain. On physical examination, patient did have tenderness in the right upper quadrant of the abdomen with a positive Covington sign. I suspect this is more of abdominal pain rather than chest pain. No associated shortness of breath. She doesn't have any cardiac risk factors. Right upper quadrant ultrasound is unremarkable. CBC and CMP are unremarkable except for mild elevation in bilirubin. Troponin and d-dimer are negative. Patient is advised to follow with the primary care physician. Also advised the patient to eat a lo w-fat diet and see if her symptoms improve. Strict return primary's were thoroughly discussed the patient is an attending agreeable. Case discussed with physician. Disposition Clinical Impression: Right upper quadrant abdominal pain Disposition: HOME SELF-CARE Condition: Stable Instructions (If sedation given, give patient instructions): Low Fat Diet (ED) Additional Instructions: Follow-up with her primary care physician. Return to emergency department if symptoms worsen. Is patient prescribed a controlled substance at d/c from ED?: No Referrals: Lidya Perez MD [Primary Care Provider] - 1-2 days Time of Disposition: 18:27
[2020-11-04] MEDS ORDERED: SODIUM CHLORIDE 0.9% 1,000 ML IV STA (16:35)
[2020-11-04 17:03] LABS: Basophils # (A) 0.1 k/uL (0-0.2); Basophils % (A) 1 %; Eosinophils % (A) 0 %; HCT 41.7 % (34.0-46.0); HGB 14.2 gm/dL (11.4-16.0); Lymphocytes # (A) 1.6 k/uL (1.0-4.8); Lymphocytes % (A) 22 %; MCH 30.9 pg (25.0-35.0); MCHC 34.1 g/dL (31.0-37.0); MCV 90.7 fL (80.0-100.0); Mean Platelet Volume 7.4; Monocytes # (A) 0.4 k/uL (0-1.0); Monocytes % (A) 6 %; Neutrophils # (A) 5.1 k/uL (1.3-7.7); Neutrophils % (A) 69 %; Platelet Count 219 k/uL (150-450); RDW 11.9 % (11.5-15.5); WBC 7.3 k/uL (3.8-10.6)
[2020-11-04 17:05] LABS: Appearance,Urine Clear (Clear); Bilirubin,Urine Negative (Negative); Blood,Urine Negative (Negative); Color,Urine Light Yellow; Glucose,Urine (UA) Negative (Negative); Ketones,Urine Negative (Negative); Leukocyte Esterase,Urine Negative (Negative); Nitrite,Urine Negative (Negative); Protein,Urine Negative (Negative); Urobilinogen,Urine <2.0 mg/dL (<2.0)
[2020-11-04 17:32] LABS: ALT 14 U/L (4-34); AST 27 U/L (14-36); African American GFR (CKD) >90 (>60 ml/min/1.73 sqM); Albumin 4.9 g/dL (3.5-5.0); Alkaline Phosphatase 57 U/L (38-126); Amylase 89 U/L (30-110); Anion Gap 7 mmol/L; Blood Urea Nitrogen 14 mg/dL (7-17); Calcium 9.8 mg/dL (8.4-10.2); Carbon Dioxide 26 mmol/L (22-30); Chloride 105 mmol/L (98-107); Glucose 114 mg/dL (74-99); Lipase 189 U/L (23-300); Non-African American GFR(CKD) >90 (>60 ml/min/1.73 sqM); Potassium 3.6 mmol/L (3.5-5.1); Sodium 138 mmol/L (137-145); Total Bilirubin 2.3 mg/dL (0.2-1.3); Total Protein 8.2 g/dL (6.3-8.2)
--- NOTE | 2020-11-04 17:35 | US ---
EXAMINATION TYPE: US gallbladder DATE OF EXAM: 11/04/2020 COMPARISON: NONE CLINICAL HISTORY: ruq abd pain. RUQ pain today EXAM MEASUREMENTS: Liver Length: 12.6 cm Gallbladder Wall: 0.2 cm CBD: 0.2 cm Right Kidney: 10.7 x 3.8 x 3.9 cm Pancreas: Tail obscured by overlying bowel gas Liver: wnl Gallbladder: no evidence of stones Evidence for sonographic Covington's sign: no CBD: wnl Right Kidney: cystic area lower pole = 1.1 x 0.9 x 1.1cm IMPRESSION: No gallstones or dilated ducts. Right renal cortical cyst.
[2020-11-04 18:46] VITALS: BP 125/69; PULSE 69
== END 2020-11-04 18:46 | disposition home or self-care (01) ==
LOC: EC 16:03
DX: R10.11 Right upper quadrant pain (principal); R07.9 Chest pain, unspecified; R10.811 Right upper quadrant abdominal tenderness; R79.89 Other specified abnormal findings of blood chemistry; Z88.0 Allergy status to penicillin; Z88.1 Allergy status to other antibiotic agents; Z87.891 Personal history of nicotine dependence; Z87.11 Personal history of peptic ulcer disease
CPT/HCPCS: 36415; 76705; 80053; 81003; 81025; 82150; 83690; 84484; 85025; 85379; 93005; 96360; 96361; 99285

== ENCOUNTER 2020-12-26 08:32 | Day surgery (SDC) | payer BC ==
[2020-12-24 14:26] VITALS: BMI 20.5
[2020-12-26] MEDS ORDERED: LIDOCAINE 1% (10MG/ML) FOR IV START INTRADERMA ONE (09:00)
[2020-12-26 09:11] VITALS: TEMP 98
[2020-12-26] MEDS ORDERED: PROPOFOL 10 MG/ML 20 ML VIAL IV ONE (09:58)
[2020-12-26] MEDS ORDERED: LIDOCAINE 1% INJ 10MG/ML (20 ML MDV) ONE (09:58)
--- NOTE | 2020-12-26 10:13 | P.PCN ---
Date of Procedure: 12/26/20 Procedure(s) Performed: BRIEF HISTORY: Patient is a 35-year-old pleasant white female scheduled for an elective colonoscopy as a part of evaluation of intermittent rectal bleeding and change in bowel habits for the last 1 year duration. PROCEDURE PERFORMED: Colonoscopy. PREOPERATIVE DIAGNOSIS: Change in bowel habits/intermittent rectal. IV sedation per Anesthesia. PROCEDURE: After informed consent was obtained, the patient, was brought into the endoscopy unit. IV sedation was administered by Anesthesia under continuous monitoring. Digital rectal examination was normal. Initially the Olympus CF-160 flexible video colonoscope was then inserted in the rectum, gradually advanced into the cecum without any difficulty. Careful examination was performed as the scope was gradually being withdrawn. Ileocecal valve and the appendiceal orifice were visualized and appeared normal. Prep was excellent. Mucosa of the cecum, ascending colon, transverse colon, descending colon, sigmoid colon, and rectum appeared normal. Retroflexion was performed in the rectum and no lesions were seen. The patient tolerated the procedure well. IMPRESSION: Normal-appearing colon from rectum to cecum with no evidence of colitis or colorectal neoplasia. RECOMMENDATIONS: Findings of this examination were discussed with the patient as well as a family. She was advised to be a high-fiber diet and take fiber supplements a regular basis..
[2020-12-26 10:38] VITALS: BP 118/63; PULSE 60; RESP 18
== END 2020-12-26 11:18 | disposition home or self-care (01) ==
LOC: ORWHC2ENDO 08:32
PROVIDERS: ATTEND Internal Medicine Gastroenterology
DX: K92.1 Melena (principal); R19.4 Change in bowel habit; Z98.891 History of uterine scar from previous surgery; Z79.1 Long term (current) use of non-steroidal anti-inflammatories (NSAID); Z79.899 Other long term (current) drug therapy; Z88.0 Allergy status to penicillin
CPT/HCPCS: 81025; 45378; J2001; J2704

== ENCOUNTER 2021-01-13 21:37 | Emergency (ER) | payer BC ==
[2021-01-13 21:47] VITALS: TEMP 99
[2021-01-13] MEDS ORDERED: SODIUM CHLORIDE 0.9% 1,000 ML IV STA (22:12)
[2021-01-13] MEDS ORDERED: METOCLOPRAMIDE 5 MG/ML 2 ML VIAL IVP STA (22:12)
[2021-01-13] MEDS ORDERED: diphenhydrAMINE 50 MG/ML 1 ML VIAL IVP STA ×2 (22:12→23:47)
[2021-01-13] MEDS ORDERED: DEXAMETHASONE SOD PHOSPHATE 10 MG/ML 1 ML VIAL IV STA (22:13)
[2021-01-13] MEDS ORDERED: MAGNESIUM SULFATE-D5W PMX 1 GM in DEXTROSE/WATER 1 100ML.BAG IVPB ONE (22:13)
[2021-01-13 22:50] LABS: Basophils % (A) 0 %; Eosinophils # (A) 0.1 k/uL (0-0.7); Eosinophils % (A) 1 %; HCT 38.2 % (34.0-46.0); Lymphocytes # (A) 1.5 k/uL (1.0-4.8); Lymphocytes % (A) 24 %; MCH 30.2 pg (25.0-35.0); MCHC 33.9 g/dL (31.0-37.0); MCV 89.3 fL (80.0-100.0); Mean Platelet Volume 7.7; Monocytes # (A) 0.4 k/uL (0-1.0); Monocytes % (A) 6 %; Neutrophils # (A) 4.3 k/uL (1.3-7.7); Neutrophils % (A) 68 %; Platelet Count 225 k/uL (150-450); RBC 4.28 m/uL (3.80-5.40); RDW 12.5 % (11.5-15.5); WBC 6.3 k/uL (3.8-10.6)
--- NOTE | 2021-01-13 22:52 | ED ---
General Adult HPI <Conner Sanchez - Last Filed: 01/14/21 00:05> - General Source: patient, family Mode of arrival: wheelchair Limitations: no limitations <Simona Mendoza - Last Filed: 01/14/21 22:48> - General Chief complaint: Dizziness Stated complaint: Dizziness,Headache Time Seen by Provider: 01/13/21 21:45 - History of Present Illness Initial comments: Patient is a 35-year-old female past medical history of migraines who presents emergency Department with reported migraine headache. Reports she has a migraine every few months. She will have associated vertigo to which she followed up with an ENT. She has meclizine at home to take for her vertigo. States she has never seen a neurologist and it has been a significant amount of time since she had an MRI. Reports that one week ago she began having a migraine headache. Admits to photophobia and phonophobia. She went to a hospital in [facility] on and received tramadol for her headache. Reports that it did help at that time however she continues to remain very vertiginous and today the headache returned. Denies any head trauma. No fevers or chills. Denies any sick contacts. No neck stiffness. Denies numbness, tingling or weakness in her extremities. She also has atenolol and Flexeril to take for her headaches. States she has been taking Flexeril without improvement in her pain. Admits to nausea without vomiting. No other alleviating, precipitating or modifying factors (Simona Mendoza) - Related Data Home Medications Medication Instructions Recorded Confirmed Ibuprofen [Motrin Ib] 400 mg PO Q8HR PRN 11/04/20 12/26/20 Meclizine HCl 25 mg PO Q6H PRN 11/04/20 12/26/20 Allergies Allergy/AdvReac Type Severity Reaction Status Date / Time amoxicillin [From Augmentin] AdvReac Nausea Verified 01/13/21 21:47 clavulanic acid AdvReac Nausea Verified 01/13/21 21:47 [From Augmentin] Review of Systems ROS Other: All systems not noted in ROS Statement are negative. <Conner Sanchez - Last Filed: 01/14/21 00:05> ROS Other: All systems not noted in ROS Statement are negative. <Simona Mendoza - Last Filed: 01/14/21 22:48> ROS Statement: Those systems with pertinent positive or pertinent negative responses have been documented in the HPI. Past Medical History Past Medical History: GERD/Reflux Additional Past Medical History / Comment(s): MIGRAINES, HX OF Peptic Ulcer, ANEMIA and vertigo. .Previous ruptured ovarian cyst, IBS History of Any Multi-Drug Resistant Organisms: None Reported Date of last positivie culture/infection: 2011 Past Surgical History: Section Additional Past Surgical History / Comment(s): D&C times 2 for spontaneous abortions., . X3. EGD 2019. Past Anesthesia/Blood Transfusion Reactions: Motion Sickness, Postoperative Nausea & Vomiting (PONV) Past Psychological History: Anxiety Smoking Status: Former smoker Past Alcohol Use History: Occasional Past Drug Use History: None Reported - Past Family History Father Additional Family Medical History / Comment(s): Father has an autoimmune disorder. breast cancer PGM and PGGM. Mother Family Medical History: Cancer Additional Family Medical History / Comment(s): Renal cancer. Maternal aunt had breast cancer and renal cancer. Sister(s) Family Medical History: Cancer Additional Family Medical History / Comment(s): Precancerous breast cyst. <Simona Mendoza - Last Filed: 01/14/21 22:48> General Exam General appearance: alert, in no apparent distress Head exam: Present: atraumatic, normocephalic, normal inspection Eye exam: Present: normal appearance, PERRL, EOMI. Absent: scleral icterus, conjunctival injection, periorbital swelling ENT exam: Present: normal exam, mucous membranes moist Neck exam: Present: normal inspection. Absent: tenderness, meningismus, lymphadenopathy Respiratory exam: Present: normal lung sounds bilaterally. Absent: respiratory distress, wheezes, rales, rhonchi, stridor Cardiovascular Exam: Present: regular rate, normal rhythm, normal heart sounds. Absent: systolic murmur, diastolic murmur, rubs, gallop, clicks GI/Abdominal exam: Present: soft, normal bowel sounds. Absent: distended, tenderness, guarding, rebound, rigid Extremities exam: Present: normal inspection, full ROM, normal capillary refill. Absent: tenderness, pedal edema, joint swelling, calf tenderness Back exam: Present: normal inspection Neurological exam: Present: alert, oriented X3, CN II-XII intact Psychiatric exam: Present: normal affect, normal mood Skin exam: Present: warm, dry, intact, normal color. Absent: rash <Conner Sanchez - Last Filed: 01/14/21 00:05> Limitations: no limitations General appearance: alert, in no apparent distress Head exam: Present: atraumatic, normocephalic, normal inspection Eye exam: Present: normal appearance, PERRL, EOMI. Absent: scleral icterus, conjunctival injection, periorbital swelling ENT exam: Present: normal exam, mucous membranes moist Neck exam: Present: normal inspection. Absent: tenderness, meningismus, lymphadenopathy Respiratory exam: Present: normal lung sounds bilaterally. Absent: respiratory distress, wheezes, rales, rhonchi, stridor Cardiovascular Exam: Present: regular rate, normal rhythm, normal heart sounds. Absent: systolic murmur, diastolic murmur, rubs, gallop, clicks GI/Abdominal exam: Present: soft, normal bowel sounds. Absent: distended, tenderness, guarding, rebound, rigid Extremities exam: Present: normal inspection, full ROM, normal capillary refill. Absent: tenderness, pedal edema, joint swelling, calf tenderness Back exam: Present: normal inspection Neurological exam: Present: alert, oriented X3, CN II-XII intact Psychiatric exam: Present: normal affect, normal mood Skin exam: Present: warm, dry, intact, normal color. Absent: rash <Simona Mendoza - Last Filed: 01/14/21 22:48> Course <Conner Sanchez - Last Filed: 01/14/21 00:05> Vital Signs 01/13/21 01/14/21 21:43 00:09 Temperature 99 F Pulse Rate 88 97 Respiratory 22 16 Rate Blood Pressure 127/90 108/71 O2 Sat by Pulse 98 97 Oximetry - Reevaluation(s) Reevaluation #1: 01/14/21 00:05 Medical record is reviewed (Conner Sanchez) Reevaluation #2: 01/14/21 00:05 Patient and her did get coronavirus testing here in the ER (Conner Sanchez) Reevaluation #3: 01/14/21 00:06 Patient has improvement of headache resolution of headache still mild dizziness but able to ambulate without ataxia (Conner Sanchez) Medical Decision Making - Lab Data Result diagrams: 01/13/21 22:40 01/13/21 22:40 - Radiology Data Radiology results: report reviewed (CT brain is negative for acute disease), image reviewed <Conner Sanchez - Last Filed: 01/14/21 00:05> - Lab Data Result diagrams: 01/13/21 22:40 01/13/21 22:40 <Simona Mendoza - Last Filed: 01/14/21 22:48> - Medical Decision Making 35 female DF for evaluation of migraine, complex migraine with dizziness. Dizziness is improved here in the ER. Headache is improved here in the ER CT is negative. Patient otherwise feels well and can be discharged home (Conner Sanchez) Upon arrival patient is placed into room 3. A thorough history and physical exam is performed. IV access established. Patient is given a migraine cocktail to include 10 mg of Decadron,15 mg of Toradol, 10 mg Reglan, 25 mg of Benadryl and 1 gram of magnesium. Studies are conducted in the patient is sent for a CT of her head. Results are pending at this time the patient will be signed out to Dr. Sanchez. (Simona Mendoza) - Lab Data Lab Results 01/13/21 01/13/21 01/13/21 Range/Units 22:40 22:40 23:07 WBC 6.3 (3.8-10.6) k/uL RBC 4.28 (3.80-5.40) m/uL Hgb 13.0 (11.4-16.0) gm/dL Hct 38.2 (34.0-46.0) % MCV 89.3 (80.0-100.0) fL MCH 30.2 (25.0-35.0) pg MCHC 33.9 (31.0-37.0) g/dL RDW 12.5 (11.5-15.5) % Plt Count 225 (150-450) k/uL MPV 7.7 Neutrophils % 68 % Lymphocytes % 24 % Monocytes % 6 % Eosinophils % 1 % Basophils % 0 % Neutrophils # 4.3 (1.3-7.7) k/uL Lymphocytes # 1.5 (1.0-4.8) k/uL Monocytes # 0.4 (0-1.0) k/uL Eosinophils # 0.1 (0-0.7) k/uL Basophils # 0.0 (0-0.2) k/uL Sodium 138 (137-145) mmol/L Potassium 4.0 (3.5-5.1) mmol/L Chloride 105 (98-107) mmol/L Carbon Dioxide 27 (22-30) mmol/L Anion Gap 6 mmol/L BUN 12 (7-17) mg/dL Creatinine 0.69 (0.52-1.04) mg/dL Est GFR (CKD-EPI)AfAm >90 (>60 ml/min/1.73 sqM) Est GFR (CKD-EPI)NonAf >90 (>60 ml/min/1.73 sqM) Glucose 101 H (74-99) mg/dL Calcium 9.4 (8.4-10.2) mg/dL Total Bilirubin 1.1 (0.2-1.3) mg/dL AST 20 (14-36) U/L ALT 9 (4-34) U/L Alkaline Phosphatase 47 (38-126) U/L Total Protein 6.9 (6.3-8.2) g/dL Albumin 4.3 (3.5-5.0) g/dL Coronavirus (PCR) Not Detected (Not Detectd) 01/13/21 Range/Units 23:25 WBC (3.8-10.6) k/uL RBC (3.80-5.40) m/uL Hgb (11.4-16.0) gm/dL Hct (34.0-46.0) % MCV (80.0-100.0) fL MCH (25.0-35.0) pg MCHC (31.0-37.0) g/dL RDW (11.5-15.5) % Plt Count (150-450) k/uL MPV Neutrophils % % Lymphocytes % % Monocytes % % Eosinophils % % Basophils % % Neutrophils # (1.3-7.7) k/uL Lymphocytes # (1.0-4.8) k/uL Monocytes # (0-1.0) k/uL Eosinophils # (0-0.7) k/uL Basophils # (0-0.2) k/uL Sodium (137-145) mmol/L Potassium (3.5-5.1) mmol/L Chloride (98-107) mmol/L Carbon Dioxide (22-30) mmol/L Anion Gap mmol/L BUN (7-17) mg/dL Creatinine (0.52-1.04) mg/dL Est GFR (CKD-EPI)AfAm (>60 ml/min/1.73 sqM) Est GFR (CKD-EPI)NonAf (>60 ml/min/1.73 sqM) Glucose (74-99) mg/dL Calcium (8.4-10.2) mg/dL Total Bilirubin (0.2-1.3) mg/dL AST (14-36) U/L ALT (4-34) U/L Alkaline Phosphatase (38-126) U/L Total Protein (6.3-8.2) g/dL Albumin (3.5-5.0) g/dL Coronavirus (PCR) Not Detected (Not Detectd) Disposition Is patient prescribed a controlled substance at d/c from ED?: No <Conner Sanchez - Last Filed: 01/14/21 00:05> <Simona Mendoza - Last Filed: 01/14/21 22:48> Clinical Impression: Migraine, Dizziness Disposition: HOME SELF-CARE Condition: Good Instructions (If sedation given, give patient instructions): Dizziness (ED) Additional Instructions: COVID PCR test was taken and sent out. Awaiting results. Referrals: Lidya Perez MD [Primary Care Provider] - 1-2 days
[2021-01-13 22:58] LABS: ALT 9 U/L (4-34); AST 20 U/L (14-36); African American GFR (CKD) >90 (>60 ml/min/1.73 sqM); Albumin 4.3 g/dL (3.5-5.0); Alkaline Phosphatase 47 U/L (38-126); Anion Gap 6 mmol/L; Blood Urea Nitrogen 12 mg/dL (7-17); Calcium 9.4 mg/dL (8.4-10.2); Carbon Dioxide 27 mmol/L (22-30); Chloride 105 mmol/L (98-107); Glucose 101 mg/dL (74-99); Non-African American GFR(CKD) >90 (>60 ml/min/1.73 sqM); Sodium 138 mmol/L (137-145); Total Bilirubin 1.1 mg/dL (0.2-1.3); Total Protein 6.9 g/dL (6.3-8.2)
[2021-01-13] MEDS ORDERED: KETOROLAC 15 MG/ML 1 ML VIAL IVP STA (23:07)
--- NOTE | 2021-01-13 23:15 | CT ---
EXAMINATION TYPE: CT brain wo con DATE OF EXAM: 01/13/2021 COMPARISON: 11/07/2018 HISTORY: migraine, dizziness CT DLP: 1056.4 mGycm Automated exposure control for dose reduction was used. Ventricles and sulci appear normal. There is no mass effect nor midline shift. There is no sign of in tracranial hemorrhage. The calvarium is intact. Skull base is intact. There is normal aeration of the mastoid sinuses. IMPRESSION: Normal unenhanced head CT scan. No change.
[2021-01-13] MEDS ORDERED: PROCHLORPERAZINE INJ 10 MG/2 ML VIAL IVP STA (23:47)
[2021-01-14] MEDS: MORPHINE SULFATE 4 MG/ML SYRINGE IVP STA ×2 (00:01→00:39)
[2021-01-14 00:10] VITALS: BP 108/71; PULSE 97; RESP 16
[2021-01-14] MEDS ORDERED: ACET/COD 300 MG/30 MG STARTER PACK 6 TAB BTL PO STA (00:56)
[2021-01-14] MEDS ORDERED: ONDANSETRON 4 MG ODT STARTER PACK 2 TAB BTL PO STA (00:56)
== END 2021-01-14 01:07 | disposition home or self-care (01) ==
LOC: EC 21:37
DX: G43.909 Migraine, unspecified, not intractable, without status migrainosus (principal); Z87.891 Personal history of nicotine dependence
CPT/HCPCS: 99284; 96374; 96375; 96376; 96361; 36415; 80053; 85025; 87635; 70450; U0003; U0005; J2270; J1200 ×2; J0780; J1100; J2765; J3475; J1885; S0119

== ENCOUNTER 2021-06-04 13:48 | Emergency (ER) | payer BC ==
[2021-06-04] MEDS ORDERED: LORazepam 2 MG/ML INJ IV STA (15:01)
[2021-06-04] MEDS ORDERED: ONDANSETRON 4 MG/2 ML VIAL IVP STA (15:01)
[2021-06-04] MEDS ORDERED: KETOROLAC 15 MG/ML 1 ML VIAL IVP STA (15:03)
[2021-06-04] MEDS ORDERED: SODIUM CHLORIDE 0.9% 1,000 ML IV ONE (15:03)
[2021-06-04 15:26] LABS: Basophils % (A) 0 %; Eosinophils % (A) 0 %; HCT 40.3 % (34.0-46.0); HGB 13.8 gm/dL (11.4-16.0); Lymphocytes % (A) 10 %; MCH 31.6 pg (25.0-35.0); MCHC 34.4 g/dL (31.0-37.0); MCV 92.1 fL (80.0-100.0); Mean Platelet Volume 8.1; Monocytes # (A) 0.4 k/uL (0-1.0); Monocytes % (A) 4 %; Neutrophils # (A) 8.3 k/uL (1.3-7.7); Neutrophils % (A) 85 %; Platelet Count 230 k/uL (150-450); RBC 4.37 m/uL (3.80-5.40); RDW 11.8 % (11.5-15.5); WBC 9.7 k/uL (3.8-10.6)
[2021-06-04 15:27] LABS: Appearance,Urine Clear (Clear); Bilirubin,Urine Negative (Negative); Blood,Urine Negative (Negative); Color,Urine Light Yellow; Glucose,Urine (UA) Negative (Negative); Ketones,Urine 2+ (Negative); Leukocyte Esterase,Urine Negative (Negative); Nitrite,Urine Negative (Negative); PH, Urine 6.5 (5.0-8.0); Protein,Urine Negative (Negative); Specific Gravity,Urine 1.005 (1.001-1.035); Urobilinogen,Urine <2.0 mg/dL (<2.0)
[2021-06-04 15:36] VITALS: RESP 18
[2021-06-04 15:36] LABS: ALT 14 U/L (4-34); AST 25 U/L (14-36); African American GFR (CKD) >90 (>60 ml/min/1.73 sqM); Albumin 4.8 g/dL (3.5-5.0); Alkaline Phosphatase 65 U/L (38-126); Anion Gap 14 mmol/L; Blood Urea Nitrogen 5 mg/dL (7-17); Carbon Dioxide 20 mmol/L (22-30); Chloride 107 mmol/L (98-107); Glucose 142 mg/dL (74-99); Lipase 143 U/L (23-300); Non-African American GFR(CKD) >90 (>60 ml/min/1.73 sqM); Potassium 3.6 mmol/L (3.5-5.1); Sodium 141 mmol/L (137-145); Total Bilirubin 1.8 mg/dL (0.2-1.3); Total Protein 7.5 g/dL (6.3-8.2)
--- NOTE | 2021-06-04 15:54 | XR ---
EXAMINATION TYPE: XR chest 2V DATE OF EXAM: 06/04/2021 COMPARISON: 12/12/2019 INDICATION: Cough, pain TECHNIQUE: Frontal and lateral views of the chest are obtained. FINDINGS: The heart size is normal. The pulmonary vasculature is normal. The lungs are clear. IMPRESSION: 1. No acute pulmonary process.
--- NOTE | 2021-06-04 16:44 | ED ---
General Adult HPI - General Chief complaint: Anxiety Stated complaint: Anxiety Source: patient, EMS Mode of arrival: EMS Limitations: no limitations - History of Present Illness Initial comments: The patient is a 35-year-old female with no reported past medical history who presents to the emergency department gastric pain, shortness of breath, nausea or vomiting. Patient reports that she will this morning with these complaints and states over the course of the day progressed the Worse. Patient has epigastric abdominal pain which she isn't sure if it is related to food intake which has caused her to feel nauseated and vomiting. Also reports to abdominal distention and chest discomfort. Patient admits to tingling in pain. No numbness, tingling or weakness into her lower extremities. No recent fevers. No cough. Denies sick contacts with similar symptoms. No history of similar in the past. No concern for . Denies any changes in her bowel or bladder habits. No abnormal vaginal bleeding or discharge. No other alleviating, precipitating modifying factors - Related Data Home Medications Medication Instructions Recorded Confirmed Ibuprofen [Motrin Ib] 400 mg PO Q8HR PRN 11/04/20 12/26/20 Meclizine HCl 25 mg PO Q6H PRN 11/04/20 12/26/20 Allergies Allergy/AdvReac Type Severity Reaction Status Date / Time amoxicillin [From Augmentin] AdvReac Nausea Verified 06/04/21 16:40 clavulanic acid AdvReac Nausea Verified 06/04/21 16:40 [From Augmentin] Review of Systems ROS Statement: Those systems with pertinent positive or pertinent negative responses have been documented in the HPI. ROS Other: All systems not noted in ROS Statement are negative. Past Medical History Past Medical History: GERD/Reflux Additional Past Medical History / Comment(s): MIGRAINES, HX OF Peptic Ulcer, ANEMIA and vertigo. .Previous ruptured ovarian cyst, IBS History of Any Multi-Drug Resistant Organisms: None Reported Date of last positivie culture/infection: 2011 Past Surgical History: Section Additional Past Surgical History / Comment(s): D&C times 2 for spontaneous abortions., . X3. EGD 2019. Past Anesthesia/Blood Transfusion Reactions: Motion Sickness, Postoperative Nausea & Vomiting (PONV) Past Psychological History: No Psychological Hx Reported Smoking Status: Former smoker Past Alcohol Use History: Occasional Past Drug Use History: None Reported - Past Family History Father Additional Family Medical History / Comment(s): Father has an autoimmune disorder. breast cancer PGM and PGGM. Mother Family Medical History: Cancer Additional Family Medical History / Comment(s): Renal cancer. Maternal aunt had breast cancer and renal cancer. Sister(s) Family Medical History: Cancer Additional Family Medical History / Comment(s): Precancerous breast cyst. General Exam Limitations: no limitations General appearance: alert, anxious Head exam: Present: atraumatic, normocephalic, normal inspection Eye exam: Present: normal appearance, PERRL, EOMI. Absent: scleral icterus, conjunctival injection, periorbital swelling ENT exam: Present: normal exam, mucous membranes moist Neck exam: Present: normal inspection. Absent: tenderness, meningismus, lymphadenopathy Respiratory exam: Present: normal lung sounds bilaterally. Absent: respiratory distress, wheezes, rales, rhonchi, stridor Cardiovascular Exam: Present: normal rhythm, tachycardia, normal heart sounds. Absent: systolic murmur, diastolic murmur, rubs, gallop, clicks GI/Abdominal exam: Present: soft, tenderness (epigastric), normal bowel sounds. Absent: distended, guarding, rebound, rigid Extremities exam: Present: normal inspection, full ROM, normal capillary refill. Absent: tenderness, pedal edema, joint swelling, calf tenderness Back exam: Present: normal inspection Neurological exam: Present: alert, oriented X3, CN II-XII intact Psychiatric exam: Present: normal affect, normal mood, anxious Skin exam: Present: warm, dry, intact, normal color. Absent: rash Course Vital Signs 06/04/21 06/04/21 06/04/21 13:49 15:34 18:21 Temperature 97.2 F L 98.2 F Pulse Rate 103 H 78 106 H Respiratory 20 18 18 Rate Blood Pressure 131/87 108/65 104/65 O2 Sat by Pulse 100 97 100 Oximetry EKG Findings - EKG Comments: EKG Findings:: EKG demonstrates a normal sinus rhythm with a ventricular rate of 94. OH interval 122. QRS 86. QTC of 447. No acute ST segment elevations or depressions Medical Decision Making - Medical Decision Making Upon arrival patient was placed into room 21. A thorough history and physical exam was performed. Patient is notably tachycardic. EKG was performed. IV is established the patient is given 1 mg of Ativan, 50 mg of Toradol, 4 mg of Zofran and a liter bolus of normal saline. Laboratory studies were conducted. Chest x-rays performed. Upon return results they are discussed the patient. She does feel improved at this time. I did discuss diagnosis, differential and treatment options. Recommended the patient be discharged home and follow-up with her primary Within 2-4 days. She may benefit from further imaging to include HIDA scan, ultrasound report EGD. Return to the emergency room or any worsening symptoms. Patient and at bedside agreed with the treatment plan and the patient was discharged home in stable condition - Lab Data Result diagrams: 06/04/21 15:14 06/04/21 15:14 Lab Results 06/04/21 06/04/21 06/04/21 Range/Units 15:14 15:14 15:14 WBC 9.7 (3.8-10.6) k/uL RBC 4.37 (3.80-5.40) m/uL Hgb 13.8 (11.4-16.0) gm/dL Hct 40.3 (34.0-46.0) % MCV 92.1 (80.0-100.0) fL MCH 31.6 (25.0-35.0) pg MCHC 34.4 (31.0-37.0) g/dL RDW 11.8 (11.5-15.5) % Plt Count 230 (150-450) k/uL MPV 8.1 Neutrophils % 85 % Lymphocytes % 10 % Monocytes % 4 % Eosinophils % 0 % Basophils % 0 % Neutrophils # 8.3 H (1.3-7.7) k/uL Lymphocytes # 1.0 (1.0-4.8) k/uL Monocytes # 0.4 (0-1.0) k/uL Eosinophils # 0.0 (0-0.7) k/uL Basophils # 0.0 (0-0.2) k/uL D-Dimer <0.17 (<0.60) mg/L FEU Sodium (137-145) mmol/L Potassium (3.5-5.1) mmol/L Chloride (98-107) mmol/L Carbon Dioxide (22-30) mmol/L Anion Gap mmol/L BUN (7-17) mg/dL Creatinine (0.52-1.04) mg/dL Est GFR (CKD-EPI)AfAm (>60 ml/min/1.73 sqM) Est GFR (CKD-EPI)NonAf (>60 ml/min/1.73 sqM) Glucose (74-99) mg/dL Calcium (8.4-10.2) mg/dL Total Bilirubin (0.2-1.3) mg/dL AST (14-36) U/L ALT (4-34) U/L Alkaline Phosphatase (38-126) U/L Troponin I (0.000-0.034) ng/mL Total Protein (6.3-8.2) g/dL Albumin (3.5-5.0) g/dL Lipase (23-300) U/L TSH (0.465-4.680) mIU/L Urine Color Light Yellow Urine Appearance Clear (Clear) Urine pH 6.5 (5.0-8.0) Ur Specific [place] 1.005 (1.001-1.035) Urine Protein Negative (Negative) Urine Glucose (UA) Negative (Negative) Urine Ketones 2+ H (Negative) Urine Blood Negative (Negative) Urine Nitrite Negative (Negative) Urine Bilirubin Negative (Negative) Urine Urobilinogen <2.0 (<2.0) mg/dL Ur Leukocyte Esterase Negative (Negative) Urine HCG, Qual (Not Detectd) 06/04/21 06/04/21 06/04/21 Range/Units 15:14 15:14 15:14 WBC (3.8-10.6) k/uL RBC (3.80-5.40) m/uL Hgb (11.4-16.0) gm/dL Hct (34.0-46.0) % MCV (80.0-100.0) fL MCH (25.0-35.0) pg MCHC (31.0-37.0) g/dL RDW (11.5-15.5) % Plt Count (150-450) k/uL MPV Neutrophils % % Lymphocytes % % Monocytes % % Eosinophils % % Basophils % % Neutrophils # (1.3-7.7) k/uL Lymphocytes # (1.0-4.8) k/uL Monocytes # (0-1.0) k/uL Eosinophils # (0-0.7) k/uL Basophils # (0-0.2) k/uL D-Dimer (<0.60) mg/L FEU Sodium 141 (137-145) mmol/L Potassium 3.6 (3.5-5.1) mmol/L Chloride 107 (98-107) mmol/L Carbon Dioxide 20 L (22-30) mmol/L Anion Gap 14 mmol/L BUN 5 L (7-17) mg/dL Creatinine 0.63 (0.52-1.04) mg/dL Est GFR (CKD-EPI)AfAm >90 (>60 ml/min/1.73 sqM) Est GFR (CKD-EPI)NonAf >90 (>60 ml/min/1.73 sqM) Glucose 142 H (74-99) mg/dL Calcium 10.0 (8.4-10.2) mg/dL Total Bilirubin 1.8 H (0.2-1.3) mg/dL AST 25 (14-36) U/L ALT 14 (4-34) U/L Alkaline Phosphatase 65 (38-126) U/L Troponin I <0.012 (0.000-0.034) ng/mL Total Protein 7.5 (6.3-8.2) g/dL Albumin 4.8 (3.5-5.0) g/dL Lipase 143 (23-300) U/L TSH 1.190 (0.465-4.680) mIU/L Urine Color Urine Appearance (Clear) Urine pH (5.0-8.0) Ur Specific [place] (1.001-1.035) Urine Protein (Negative) Urine Glucose (UA) (Negative) Urine Ketones (Negative) Urine Blood (Negative) Urine Nitrite (Negative) Urine Bilirubin (Negative) Urine Urobilinogen (<2.0) mg/dL Ur Leukocyte Esterase (Negative) Urine HCG, Qual Not Detected (Not Detectd) Disposition Clinical Impression: Epigastric pain Disposition: HOME SELF-CARE Condition: Stable Instructions (If sedation given, give patient instructions): Epigastric Pain (ED) Additional Instructions: You may benefit from an EGD or HIDA scan (to look for biliary dyskinesia). Return to the emergency room for any new or worsening symptoms Is patient prescribed a controlled substance at d/c from ED?: No Referrals: Lidya Perez MD [Primary Care Provider] - 1-2 days Time of Disposition: 17:14
[2021-06-04] MEDS ORDERED: ONDANSETRON 4 MG ODT STARTER PACK 2 TAB BTL PO STA (17:14)
[2021-06-04 18:23] VITALS: BP 104/65; PULSE 106; TEMP 98.2
== END 2021-06-04 18:21 | disposition home or self-care (01) ==
LOC: EC 13:48
DX: R10.13 Epigastric pain (principal); K21.9 Gastro-esophageal reflux disease without esophagitis; Z87.891 Personal history of nicotine dependence; Z88.0 Allergy status to penicillin; Z88.1 Allergy status to other antibiotic agents; Z87.11 Personal history of peptic ulcer disease; Z79.1 Long term (current) use of non-steroidal anti-inflammatories (NSAID); Z80.3 Family history of malignant neoplasm of breast; Z80.51 Family history of malignant neoplasm of kidney
CPT/HCPCS: 36415; 93005; 85379; 80053; 84443; 83690; 84484; 85025; 81003; 81025; 71046; 96375 ×2; 96361; 99285; 96374; J2060; J2405; J1885; S0119

== ENCOUNTER 2021-09-17 11:07 | Emergency (ER) | payer BC ==
[2021-09-17 11:22] VITALS: TEMP 97.6
[2021-09-17] MEDS ORDERED: ONDANSETRON 4 MG/2 ML VIAL IVP STA (11:56)
[2021-09-17] MEDS ORDERED: SODIUM CHLORIDE 0.9% 500 ML 500 ML IV STA (11:56)
[2021-09-17] MEDS ORDERED: SODIUM CHLORIDE 0.9% 1,000 ML IV STA (11:56)
[2021-09-17 12:20] LABS: Basophils % (A) 0 %; Eosinophils # (A) 0.1 k/uL (0-0.7); Eosinophils % (A) 1 %; HCT 41.3 % (34.0-46.0); HGB 14.1 gm/dL (11.4-16.0); Lymphocytes # (A) 2.6 k/uL (1.0-4.8); Lymphocytes % (A) 36 %; MCH 31.8 pg (25.0-35.0); MCHC 34.1 g/dL (31.0-37.0); MCV 93.3 fL (80.0-100.0); Monocytes # (A) 0.4 k/uL (0-1.0); Monocytes % (A) 5 %; Neutrophils % (A) 55 %; Platelet Count 235 k/uL (150-450); RBC 4.42 m/uL (3.80-5.40); WBC 7.3 k/uL (3.8-10.6)
[2021-09-17 12:23] LABS: Appearance,Urine Clear (Clear); Bilirubin,Urine Negative (Negative); Blood,Urine Negative (Negative); Color,Urine Light Yellow; Glucose,Urine (UA) Negative (Negative); Ketones,Urine 1+ (Negative); Leukocyte Esterase,Urine Negative (Negative); Nitrite,Urine Negative (Negative); Protein,Urine Negative (Negative); Specific Gravity,Urine 1.008 (1.001-1.035); Urobilinogen,Urine <2.0 mg/dL (<2.0)
[2021-09-17 12:43] LABS: ALT 14 U/L (4-34); AST 26 U/L (14-36); African American GFR (CKD) >90 (>60 ml/min/1.73 sqM); Albumin 4.9 g/dL (3.5-5.0); Alkaline Phosphatase 63 U/L (38-126); Anion Gap 14 mmol/L; Blood Urea Nitrogen 9 mg/dL (7-17); Calcium 10.2 mg/dL (8.4-10.2); Carbon Dioxide 21 mmol/L (22-30); Chloride 103 mmol/L (98-107); Glucose 129 mg/dL (74-99); Non-African American GFR(CKD) >90 (>60 ml/min/1.73 sqM); Potassium 3.7 mmol/L (3.5-5.1); Sodium 138 mmol/L (137-145); Total Bilirubin 2.5 mg/dL (0.2-1.3); Total Protein 7.8 g/dL (6.3-8.2)
[2021-09-17 13:33] VITALS: PULSE 82
[2021-09-17] MEDS ORDERED: METOCLOPRAMIDE 5 MG/ML 2 ML VIAL IVP STA (13:33)
[2021-09-17] MEDS ORDERED: diphenhydrAMINE 50 MG/ML 1 ML VIAL IVP STA (13:33)
[2021-09-17 14:01] VITALS: BP 166/85
[2021-09-17 14:14] LABS: Amphetamine Screen,Urine Not Detected (NotDetected); Barbiturate Screen,Urine Not Detected (NotDetected); Benzodiazepines Screen,Urine Not Detected (NotDetected); Cocaine Screen,Urine Not Detected (NotDetected); Methadone Screen, Urine Not Detected (NotDetected); Opiate Screen,Urine Not Detected (NotDetected); Oxycodone Screen, Urine Not Detected (NotDetected); Phencyclidine Screen,Urine Not Detected (NotDetected); Tricyclic Antidepressant,Urine Not Detected (NotDetected); Urn Cannabinoid Scrn Not Detected (NotDetected)
--- NOTE | 2021-09-17 14:35 | ED ---
General Adult HPI - General Chief complaint: Nausea/Vomiting/Diarrhea Stated complaint: nausea/vomiting Time Seen by Provider: 09/17/21 11:47 Source: patient Mode of arrival: ambulatory Limitations: no limitations - History of Present Illness Initial comments: 35-year-old female with a past medical history of migraines, peptic ulcer, anemia, vertigo, ovarian cyst, IBS presents to the emergency room for nausea and vomiting. Patient states she had nausea started last night. She states that today she tried to eat an avocado and threw up. Patient states she is unable to keep down much. She denies any associated abdominal pain. Denies fevers or ch ills. Patient has no other complaints at this time including shortness of breath, chest pain, abdominal pain, nausea or vomiting, headache, or visual changes. - Related Data Previous Rx's Medication Instructions Recorded Ondansetron [Zofran ODT] 4 mg PO Q8HR PRN #15 tab 09/17/21 Allergies Allergy/AdvReac Type Severity Reaction Status Date / Time amoxicillin [From Augmentin] AdvReac Nausea Verified 09/17/21 13:23 clavulanic acid AdvReac Nausea Verified 09/17/21 13:23 [From Augmentin] Review of Systems ROS Statement: Those systems with pertinent positive or pertinent negative responses have been documented in the HPI. ROS Other: All systems not noted in ROS Statement are negative. Past Medical History Past Medical History: GERD/Reflux Additional Past Medical History / Comment(s): MIGRAINES, HX OF Peptic Ulcer, ANEMIA and vertigo. .Previous ruptured ovarian cyst, IBS History of Any Multi-Drug Resistant Organisms: None Reported Date of last positivie culture/infection: 2011 Past Surgical History: Section Additional Past Surgical History / Comment(s): D&C times 2 for spontaneous abortions., . X3. EGD 2019. Past Anesthesia/Blood Transfusion Reactions: Motion Sickness, Postoperative Nausea & Vomiting (PONV) Past Psychological History: No Psychological Hx Reported Smoking Status: Former smoker Past Alcohol Use History: Occasional Past Drug Use History: None Reported - Past Family History Father Additional Family Medical History / Comment(s): Father has an autoimmune disorder. breast cancer PGM and PGGM. Mother Family Medical History: Cancer Additional Family Medical History / Comment(s): Renal cancer. Maternal aunt had breast cancer and renal cancer. Sister(s) Family Medical History: Cancer Additional Family Medical History / Comment(s): Precancerous breast cyst. General Exam Limitations: no limitations General appearance: alert, in no apparent distress Head exam: Present: atraumatic Eye exam: Present: normal appearance, PERRL, EOMI. Absent: scleral icterus, conjunctival injection ENT exam: Present: normal exam, mucous membranes moist Neck exam: Present: normal inspection, full ROM. Absent: tenderness Respiratory exam: Present: normal lung sounds bilaterally. Absent: respiratory distress, wheezes Cardiovascular Exam: Present: regular rate, normal rhythm, normal heart sounds GI/Abdominal exam: Present: soft, normal bowel sounds. Absent: distended, tenderness Neurological exam: Present: alert Course Vital Signs 09/17/21 09/17/21 09/17/21 11:17 11:33 13:33 Temperature 97.6 F Pulse Rate 133 H 115 H 82 Respiratory 20 18 18 Rate Blood Pressure 157/87 122/106 109/70 O2 Sat by Pulse 100 100 97 Oximetry 09/17/21 13:59 Temperature Pulse Rate Respiratory 106 H Rate Blood Pressure 166/85 O2 Sat by Pulse 100 Oximetry Medical Decision Making - Medical Decision Making I did review previous visit. Patient had a normal TSH and cardiac workup. Her EKG showed a sinus rhythm. Vitals are stable. Patient initially tachycardic and was very anxious. This did improve throughout her stay. When I'm in the room it is in the 80s. Laboratory evaluation obtained. CBC unremarkable. CMP generally unremarkable. Patient does have an elevated bilirubin of 2.5 however this appears chronic. She does not have any abdominal tenderness. Urinalysis is unremarkable. No . Covid negative. Urine tox negative. Patient reevaluated after to antinausea medicines. She feels much better. She has an appointment with her doctor in an hour and a half. At this time we will discharge her home with [facility]. She will return for any worsening symptoms. - Lab Data Result diagrams: 09/17/21 12:09/17/21 12:09 Lab Results 09/17/21 09/17/21 09/17/21 Range/Units 12: 12: 12:09 WBC 7.3 (3.8-10.6) k/uL RBC 4.42 (3.80-5.40) m/uL Hgb 14.1 (11.4-16.0) gm/dL Hct 41.3 (34.0-46.0) % MCV 93.3 (80.0-100.0) fL MCH 31.8 (25.0-35.0) pg MCHC 34.1 (31.0-37.0) g/dL RDW 12.0 (11.5-15.5) % Plt Count 235 (150-450) k/uL MPV 8.0 Neutrophils % 55 % Lymphocytes % 36 % Monocytes % 5 % Eosinophils % 1 % Basophils % 0 % Neutrophils # 4.0 (1.3-7.7) k/uL Lymphocytes # 2.6 (1.0-4.8) k/uL Monocytes # 0.4 (0-1.0) k/uL Eosinophils # 0.1 (0-0.7) k/uL Basophils # 0.0 (0-0.2) k/uL Sodium (137-145) mmol/L Potassium (3.5-5.1) mmol/L Chloride (98-107) mmol/L Carbon Dioxide (22-30) mmol/L Anion Gap mmol/L BUN (7-17) mg/dL Creatinine (0.52-1.04) mg/dL Est GFR (CKD-EPI)AfAm (>60 ml/min/1.73 sqM) Est GFR (CKD-EPI)NonAf (>60 ml/min/1.73 sqM) Glucose (74-99) mg/dL Calcium (8.4-10.2) mg/dL Total Bilirubin (0.2-1.3) mg/dL AST (14-36) U/L ALT (4-34) U/L Alkaline Phosphatase (38-126) U/L Total Protein (6.3-8.2) g/dL Albumin (3.5-5.0) g/dL Urine Color Light Yellow Urine Appearance Clear (Clear) Urine pH 7.0 (5.0-8.0) Ur Specific [place] 1.008 (1.001-1.035) Urine Protein Negative (Negative) Urine Glucose (UA) Negative (Negative) Urine Ketones 1+ H (Negative) Urine Blood Negative (Negative) Urine Nitrite Negative (Negative) Urine Bilirubin Negative (Negative) Urine Urobilinogen <2.0 (<2.0) mg/dL Ur Leukocyte Esterase Negative (Negative) Urine HCG, Qual Not Detected (Not Detectd) Urine Opiates Screen (NotDetected) Ur Oxycodone Screen (NotDetected) Urine Methadone Screen (NotDetected) Ur Propoxyphene Screen (NotDetected) Ur Barbiturates Screen (NotDetected) U Tricyclic Antidepress (NotDetected) Ur Phencyclidine Scrn (NotDetected) Ur Amphetamines Screen (NotDetected) U Methamphetamines Scrn (NotDetected) U Benzodiazepines Scrn (NotDetected) Urine Cocaine Screen (NotDetected) U Marijuana (THC) Screen (NotDetected) Coronavirus (PCR) (Not Detectd) 09/17/21 09/17/21 09/17/21 Range/Units 12:09 12:09 12:35 WBC (3.8-10.6) k/uL RBC (3.80-5.40) m/uL Hgb (11.4-16.0) gm/dL Hct (34.0-46.0) % MCV (80.0-100.0) fL MCH (25.0-35.0) pg MCHC (31.0-37.0) g/dL RDW (11.5-15.5) % Plt Count (150-450) k/uL MPV Neutrophils % % Lymphocytes % % Monocytes % % Eosinophils % % Basophils % % Neutrophils # (1.3-7.7) k/uL Lymphocytes # (1.0-4.8) k/uL Monocytes # (0-1.0) k/uL Eosinophils # (0-0.7) k/uL Basophils # (0-0.2) k/uL Sodium 138 (137-145) mmol/L Potassium 3.7 (3.5-5.1) mmol/L Chloride 103 (98-107) mmol/L Carbon Dioxide 21 L (22-30) mmol/L Anion Gap 14 mmol/L BUN 9 (7-17) mg/dL Creatinine 0.76 (0.52-1.04) mg/dL Est GFR (CKD-EPI)AfAm >90 (>60 ml/min/1.73 sqM) Est GFR (CKD-EPI)NonAf >90 (>60 ml/min/1.73 sqM) Glucose 129 H (74-99) mg/dL Calcium 10.2 (8.4-10.2) mg/dL Total Bilirubin 2.5 H (0.2-1.3) mg/dL AST 26 (14-36) U/L ALT 14 (4-34) U/L Alkaline Phosphatase 63 (38-126) U/L Total Protein 7.8 (6.3-8.2) g/dL Albumin 4.9 (3.5-5.0) g/dL Urine Color Urine Appearance (Clear) Urine pH (5.0-8.0) Ur Specific [place] (1.001-1.035) Urine Protein (Negative) Urine Glucose (UA) (Negative) Urine Ketones (Negative) Urine Blood (Negative) Urine Nitrite (Negative) Urine Bilirubin (Negative) Urine Urobilinogen (<2.0) mg/dL Ur Leukocyte Esterase (Negative) Urine HCG, Qual (Not Detectd) Urine Opiates Screen Not Detected (NotDetected) Ur Oxycodone Screen Not Detected (NotDetected) Urine Methadone Screen Not Detected (NotDetected) Ur Propoxyphene Screen Not Detected (NotDetected) Ur Barbiturates Screen Not Detected (NotDetected) U Tricyclic Antidepress Not Detected (NotDetected) Ur Phencyclidine Scrn Not Detected (NotDetected) Ur Amphetamines Screen Not Detected (NotDetected) U Methamphetamines Scrn Not Detected (NotDetected) U Benzodiazepines Scrn Not Detected (NotDetected) Urine Cocaine Screen Not Detected (NotDetected) U Marijuana (THC) Screen Not Detected (NotDetected) Coronavirus (PCR) Not Detected (Not Detectd) Disposition Clinical Impression: Nausea & vomiting Disposition: HOME SELF-CARE Condition: Good Instructions (If sedation given, give patient instructions): Acute Nausea and Vomiting (ED) Additional Instructions: Talk with her doctor about your labs, specifically elevated bilirubin. Please take zofran as needed for nausea. Please follow-up with your doctor in 1-2 days. Return to the emergency room for any worsening symptoms. Prescriptions: Ondansetron [Zofran ODT] 4 mg PO Q8HR PRN #15 tab PRN Reason: Nausea Is patient prescribed a controlled substance at d/c from ED?: No Referrals: Lidya Perez MD [Primary Care Provider] - 1-2 days Time of Disposition: 14:43
[2021-09-17 14:56] VITALS: RESP 16
[2021-09-17 20:06] LABS: Hepatitis A Antibody IgM Nonreactive (Nonreactive); Hepatitis B Core IgM Nonreactive (Nonreactive); Hepatitis B Surface Antigen Nonreactive (Nonreactive); Hepatitis C IgG Antibody Nonreactive (Nonreactive)
== END 2021-09-17 15:04 | disposition home or self-care (01) ==
LOC: EC 11:07
DX: R11.2 Nausea with vomiting, unspecified (principal); Z20.822 Contact with and (suspected) exposure to COVID-19; K21.9 Gastro-esophageal reflux disease without esophagitis; Z87.891 Personal history of nicotine dependence; Z88.0 Allergy status to penicillin; Z88.1 Allergy status to other antibiotic agents; Z80.51 Family history of malignant neoplasm of kidney; Z80.3 Family history of malignant neoplasm of breast
CPT/HCPCS: 36415; 80053; 80074; 85025; 81003; 81025; 80306; 87635; 96374; 96375 ×2; 96361; 99284; J1200; J2765; J2405

== ENCOUNTER 2021-09-19 13:37 | Emergency (ER) | payer BC ==
[2021-09-19 13:59] VITALS: BP 141/80; PULSE 109; RESP 18; TEMP 98.1
[2021-09-19] MEDS ORDERED: SODIUM CHLORIDE 0.9% 1,000 ML IV STA (15:01)
[2021-09-19] MEDS ORDERED: ONDANSETRON 4 MG/2 ML VIAL IVP STA (15:02)
[2021-09-19] MEDS ORDERED: diphenhydrAMINE 50 MG/ML 1 ML VIAL IVP STA (15:02)
[2021-09-19 15:23] LABS: Basophils % (A) 0 %; Eosinophils % (A) 0 %; HCT 39.8 % (34.0-46.0); HGB 13.4 gm/dL (11.4-16.0); Lymphocytes % (A) 11 %; MCH 31.2 pg (25.0-35.0); MCHC 33.5 g/dL (31.0-37.0); Mean Platelet Volume 7.8; Monocytes # (A) 0.3 k/uL (0-1.0); Monocytes % (A) 4 %; Neutrophils # (A) 7.3 k/uL (1.3-7.7); Neutrophils % (A) 84 %; Platelet Count 209 k/uL (150-450); RBC 4.29 m/uL (3.80-5.40); RDW 11.9 % (11.5-15.5); WBC 8.7 k/uL (3.8-10.6)
[2021-09-19 15:25] LABS: Appearance,Urine Clear (Clear); Bilirubin,Urine Negative (Negative); Blood,Urine Negative (Negative); Color,Urine Light Yellow; Glucose,Urine (UA) Negative (Negative); Ketones,Urine 2+ (Negative); Leukocyte Esterase,Urine Negative (Negative); Nitrite,Urine Negative (Negative); Protein,Urine Negative (Negative); Specific Gravity,Urine 1.005 (1.001-1.035); Urobilinogen,Urine <2.0 mg/dL (<2.0)
[2021-09-19 15:32] LABS: ALT 13 U/L (4-34); AST 25 U/L (14-36); African American GFR (CKD) >90 (>60 ml/min/1.73 sqM); Albumin 4.9 g/dL (3.5-5.0); Alkaline Phosphatase 58 U/L (38-126); Anion Gap 11 mmol/L; Blood Urea Nitrogen 6 mg/dL (7-17); Calcium 9.7 mg/dL (8.4-10.2); Carbon Dioxide 24 mmol/L (22-30); Chloride 104 mmol/L (98-107); Glucose 116 mg/dL (74-99); Non-African American GFR(CKD) >90 (>60 ml/min/1.73 sqM); Sodium 139 mmol/L (137-145); Total Bilirubin 2.4 mg/dL (0.2-1.3); Total Protein 7.9 g/dL (6.3-8.2)
--- NOTE | 2021-09-19 16:25 | ED ---
Nausea/Vomiting/Diarrhea HPI - General Source: patient, RN notes reviewed, old records reviewed Mode of arrival: ambulatory Limitations: no limitations <Beata Jade - Last Filed: 09/19/21 16:22> <Simona Mendoza - Last Filed: 09/22/21 01:04 EDT> - General Chief complaint: Nausea/Vomiting/Diarrhea Stated complaint: Vomiting, Nausea Time Seen by Provider: 09/19/21 14:50 - History of Present Illness Initial comments: Patient is a 35-year-old female presenting to emergency Department with complaints of nausea and vomiting for the last 3-4 days. Patient was seen here 2 days ago for same complaint. She had a normal workup and did feel better with the medications given. She states over the past 2 days she continues to feel nauseous. She states it seems to be continuous, she tried to Zofran this morning and it did not help. She denies abdominal pain, no fevers or chills. She admits to history of , no other abdominal surgeries. She denies being secondary to with a vasectomy. She denies any cough or cold-like symptoms. She does admit to being under a lot more stress than usual, she does have history of anxiety. She does not remember eating anything out of the ordinary. She has no further complaints at this time. Upon arrival to the ER her vital signs stable. (Beata Jade) - Related Data Previous Rx's Medication Instructions Recorded Ondansetron [Zofran ODT] 4 mg PO Q8HR PRN #15 tab 09/17/21 Famotidine [Pepcid] 20 mg PO HS #30 tablet 09/20/21 Prochlorperazine [Compazine] 10 mg PO Q6H PRN #28 tab 09/20/21 Allergies Allergy/AdvReac Type Severity Reaction Status Date / Time amoxicillin [From Augmentin] AdvReac Nausea Verified 09/19/21 13:59 clavulanic acid AdvReac Nausea Verified 09/19/21 13:59 [From Augmentin] Review of Systems ROS Other: All systems not noted in ROS Statement are negative. <Beata Jade - Last Filed: 09/19/21 16:22> ROS Other: All systems not noted in ROS Statement are negative. <Simona Mendoza - Last Filed: 09/22/21 01:04 EDT> ROS Statement: Those systems with pertinent positive or pertinent negative responses have been documented in the HPI. Past Medical History Past Medical History: GERD/Reflux Additional Past Medical History / Comment(s): MIGRAINES, HX OF Peptic Ulcer, ANEMIA and vertigo. .Previous ruptured ovarian cyst, IBS History of Any Multi-Drug Resistant Organisms: None Reported Date of last positivie culture/infection: 2011 Past Surgical History: Section Additional Past Surgical History / Comment(s): D&C times 2 for spontaneous abortions., . X3. EGD 2019. Past Anesthesia/Blood Transfusion Reactions: Motion Sickness, Postoperative Nausea & Vomiting (PONV) Past Psychological History: No Psychological Hx Reported Smoking Status: Former smoker Past Alcohol Use History: Occasional Past Drug Use History: None Reported - Past Family History Father Additional Family Medical History / Comment(s): Father has an autoimmune disorder. breast cancer PGM and PGGM. Mother Family Medical History: Cancer Additional Family Medical History / Comment(s): Renal cancer. Maternal aunt had breast cancer and renal cancer. Sister(s) Family Medical History: Cancer Additional Family Medical History / Comment(s): Precancerous breast cyst. <Beata Jade - Last Filed: 09/19/21 16:22> General Exam Limitations: no limitations <Beata Jade - Last Filed: 09/19/21 16:22> - General Exam Comments Initial Comments: GENERAL: Patient is well-developed and well-nourished. Patient is nontoxic and in no acute distress. HEAD: Atraumatic, normocephalic. EYES: Pupils equal round and reactive to light, extraocular movements intact, sclera anicteric, conjunctiva are normal. Eyelids were unremarkable. ENT: Oropharynx clear without exudates. Moist mucous membranes. NECK: Normal range of motion, supple without lymphadenopathy or JVD. LUNGS: Unlabored respirations. Breath sounds clear to auscultation bilaterally and equal. No wheezes rales or rhonchi. HEART: Regular rate and rhythm without murmurs, rubs or gallops. ABDOMEN: Soft, nontender, normoactive bowel sounds. No guarding, no rebound. No masses appreciated. MUSCULOSKELETAL: Normal extremities with adequate strength and normal range of motion, no pitting or edema. No clubbing or cyanosis. NEUROLOGICAL: Patient is alert and oriented x 3. SKIN: Warm, Dry, normal turgor, no rashes or lesions noted. (Beata Jade) Course Vital Signs 09/19/21 13:57 Temperature 98.1 F Pulse Rate 109 H Respiratory 18 Rate Blood Pressure 141/80 O2 Sat by Pulse 99 Oximetry Medical Decision Making - Lab Data Result diagrams: 09/19/21 15:14 09/19/21 15:14 <Beata Jade - Last Filed: 09/19/21 16:22> - Lab Data Result diagrams: 09/19/21 15:14 09/19/21 15:14 <Simona Mendoza - Last Filed: 09/22/21 01:04 EDT> - Medical Decision Making Patient is a 35-year-old female here for nausea and vomiting for the past few days. She was seen here 2 days ago for similar complaint. Had normal workup then. Her vitals are stable. She has no abdominal pain, no pain on palpation. I did recheck her labs today which were normal. Patient was given some fluids and Benadryl and she does report improvement in her symptoms. I discussed with patient this could be viral related versus food poisoning versus anxiety. I recommended taking the Benadryl if that seems to help her symptoms better than the Zofran. She is agreeable to this plan of care. Patient stable for discharge. Return parameters were discussed with surgeon verbalized under standing. (Beata Jade) I was available for consultation in the emergency department. The history and physical exam were done by the midlevel provider. I was consulted for this patients care. I reviewed the case with the midlevel provider and based on their presentation of the patient, I agree with the assessment, medical decision making and plan of care as documented. Chart was dictated using [employer] dictation software. Attempts were made to correct any dictation errors however some typographical errors may persist. (Simona Mendoza) - Lab Data Lab Results 09/19/21 09/19/21 09/19/21 Range/Units 15:14 15:14 15:14 WBC 8.7 (3.8-10.6) k/uL RBC 4.29 (3.80-5.40) m/uL Hgb 13.4 (11.4-16.0) gm/dL Hct 39.8 (34.0-46.0) % MCV 93.0 (80.0-100.0) fL MCH 31.2 (25.0-35.0) pg MCHC 33.5 (31.0-37.0) g/dL RDW 11.9 (11.5-15.5) % Plt Count 209 (150-450) k/uL MPV 7.8 Neutrophils % 84 % Lymphocytes % 11 % Monocytes % 4 % Eosinophils % 0 % Basophils % 0 % Neutrophils # 7.3 (1.3-7.7) k/uL Lymphocytes # 1.0 (1.0-4.8) k/uL Monocytes # 0.3 (0-1.0) k/uL Eosinophils # 0.0 (0-0.7) k/uL Basophils # 0.0 (0-0.2) k/uL Sodium 139 (137-145) mmol/L Potassium 4.0 (3.5-5.1) mmol/L Chloride 104 (98-107) mmol/L Carbon Dioxide 24 (22-30) mmol/L Anion Gap 11 mmol/L BUN 6 L (7-17) mg/dL Creatinine 0.62 (0.52-1.04) mg/dL Est GFR (CKD-EPI)AfAm >90 (>60 ml/min/1.73 sqM) Est GFR (CKD-EPI)NonAf >90 (>60 ml/min/1.73 sqM) Glucose 116 H (74-99) mg/dL Calcium 9.7 (8.4-10.2) mg/dL Total Bilirubin 2.4 H (0.2-1.3) mg/dL AST 25 (14-36) U/L ALT 13 (4-34) U/L Alkaline Phosphatase 58 (38-126) U/L Total Protein 7.9 (6.3-8.2) g/dL Albumin 4.9 (3.5-5.0) g/dL Urine Color Light Yellow Urine Appearance Clear (Clear) Urine pH 5.0 (5.0-8.0) Ur Specific [place] 1.005 (1.001-1.035) Urine Protein Negative (Negative) Urine Glucose (UA) Negative (Negative) Urine Ketones 2+ H (Negative) Urine Blood Negative (Negative) Urine Nitrite Negative (Negative) Urine Bilirubin Negative (Negative) Urine Urobilinogen <2.0 (<2.0) mg/dL Ur Leukocyte Esterase Negative (Negative) Disposition Is patient prescribed a controlled substance at d/c from ED?: No Time of Disposition: 16:24 <Beata Jade - Last Filed: 09/19/21 16:22> <Simona Mendoza - Last Filed: 09/22/21 01:04 EDT> Clinical Impression: Nausea & vomiting Disposition: HOME SELF-CARE Condition: Stable Instructions (If sedation given, give patient instructions): Acute Nausea and Vomiting (ED) Additional Instructions: Please return to the Emergency Department if symptoms worsen or any other concerns. Trial of Benadryl, 25 mg every 6-8 hours for any additional nausea, may also try Zofran. Increase fluid intake, and diet as tolerated. Please follow-up with your primary care physician. Referrals: Lidya Perez MD [Primary Care Provider] - 1-2 days
== END 2021-09-19 16:38 | disposition home or self-care (01) ==
LOC: EC 13:37
DX: R11.2 Nausea with vomiting, unspecified (principal); K21.9 Gastro-esophageal reflux disease without esophagitis; Z79.899 Other long term (current) drug therapy; Z87.891 Personal history of nicotine dependence; Z88.0 Allergy status to penicillin; Z88.1 Allergy status to other antibiotic agents; Z80.51 Family history of malignant neoplasm of kidney; Z80.3 Family history of malignant neoplasm of breast
CPT/HCPCS: 36415; 80053; 85025; 81003; 96374; 96361; 99284; J1200

== ENCOUNTER 2021-09-19 21:24 | Emergency (ER) | payer BC ==
[2021-09-19 21:40] VITALS: RESP 18
[2021-09-19 21:41] LABS: Glucose,Whole Blood 133 mg/dL (75-99)
[2021-09-19] MEDS ORDERED: SODIUM CHLORIDE 0.9% 1,000 ML IV STA (23:38)
[2021-09-19] MEDS ORDERED: diphenhydrAMINE 50 MG/ML 1 ML VIAL IVP STA (23:38)
[2021-09-19] MEDS ORDERED: PROCHLORPERAZINE INJ 10 MG/2 ML VIAL IVP STA (23:39)
[2021-09-19] MEDS ORDERED: FAMOTIDINE 20 MG/2 ML VIAL IV STA (23:41)
[2021-09-20 00:35] LABS: Appearance,Urine Clear (Clear); Bilirubin,Urine Negative (Negative); Blood,Urine Negative (Negative); Color,Urine Light Yellow; Glucose,Urine (UA) Negative (Negative); Ketones,Urine 1+ (Negative); Leukocyte Esterase,Urine Negative (Negative); Nitrite,Urine Negative (Negative); Protein,Urine Negative (Negative); Specific Gravity,Urine 1.008 (1.001-1.035); Urobilinogen,Urine <2.0 mg/dL (<2.0)
[2021-09-20 00:39] LABS: Basophils % (A) 0 %; Eosinophils % (A) 0 %; HCT 39.7 % (34.0-46.0); HGB 13.7 gm/dL (11.4-16.0); Lymphocytes # (A) 1.9 k/uL (1.0-4.8); Lymphocytes % (A) 24 %; MCH 31.5 pg (25.0-35.0); MCHC 34.5 g/dL (31.0-37.0); MCV 91.4 fL (80.0-100.0); Mean Platelet Volume 7.9; Monocytes # (A) 0.4 k/uL (0-1.0); Monocytes % (A) 5 %; Neutrophils # (A) 5.4 k/uL (1.3-7.7); Neutrophils % (A) 68 %; Platelet Count 255 k/uL (150-450); RBC 4.35 m/uL (3.80-5.40); RDW 12.5 % (11.5-15.5); WBC 7.8 k/uL (3.8-10.6)
[2021-09-20 00:51] LABS: Chloride 106 mmol/L (98-107)
[2021-09-20 00:54] LABS: ALT 11 U/L (4-34); AST 24 U/L (14-36); African American GFR (CKD) >90 (>60 ml/min/1.73 sqM); Albumin 4.9 g/dL (3.5-5.0); Alkaline Phosphatase 59 U/L (38-126); Anion Gap 11 mmol/L; Blood Urea Nitrogen 5 mg/dL (7-17); Calcium 9.9 mg/dL (8.4-10.2); Carbon Dioxide 21 mmol/L (22-30); Glucose 111 mg/dL (74-99); Non-African American GFR(CKD) >90 (>60 ml/min/1.73 sqM); Potassium 3.8 mmol/L (3.5-5.1); Sodium 138 mmol/L (137-145); Total Bilirubin 2.3 mg/dL (0.2-1.3); Total Protein 7.9 g/dL (6.3-8.2)
--- NOTE | 2021-09-20 01:26 | XR ---
EXAMINATION TYPE: XR KUB DATE OF EXAM: 09/20/2021 COMPARISON: None HISTORY: Nausea and vomiting TECHNIQUE: 2 views upright FINDINGS: Bowel gas pattern is normal. There is no sign of intestinal obstruction or pneumoperitoneum . Fecal pattern is normal. There is no evidence of a mass. IMPRESSION: Nonacute abdomen.
--- NOTE | 2021-09-20 01:54 | CT ---
EXAMINATION TYPE: CT brain wo con DATE OF EXAM: 09/20/2021 COMPARISON: 01/13/2021 HISTORY: nausea CT DLP: 1123.4 mGycm Automated exposure control for dose reduction was used. Ventricles and sulci appear normal. There is no mass effect nor midline shift. There is no sign of in tracranial hemorrhage. Calvarium is intact. IMPRESSION: Normal unenhanced head CT scan. No change.
--- NOTE | 2021-09-20 02:37 | ED ---
Nausea/Vomiting/Diarrhea HPI - General Chief complaint: Nausea/Vomiting/Diarrhea Stated complaint: Dizziness Time Seen by Provider: 09/19/21 23:28 Source: patient Mode of arrival: wheelchair Limitations: no limitations - History of Present Illness Initial comments: 35 year-old female patient presents to the emergency department today for evaluation of intense nausea. States that symptoms started on Thursday and have been persistent. States she is unable to eat or even smell food cooking without becoming intense and nauseated for hours. States she has been here twice for same symptoms. Has been taking the medication as directed without relief. St ates she has had some vomiting episodes. Denies any constipation or diarrhea. Denies previous abdominal surgery. Denies chance of . Denies any fever or chills. Denies recent travel or sick contacts. She denies starting or stopping any medications. Does report drinking wine on the weekends, no other significant alcohol use. Denies illicit drug use. Patient denies any recent rash, cough, shortness of breath, chest pain, back pain, numbness, tingling, dizziness, weakness, hematuria, dysuria, urinary urgency, urinary frequency, headache, visual changes, or any other complaints. - Related Data Previous Rx's Medication Instructions Recorded Ondansetron [Zofran ODT] 4 mg PO Q8HR PRN #15 tab 09/17/21 Famotidine [Pepcid] 20 mg PO HS #30 tablet 09/20/21 Prochlorperazine [Compazine] 10 mg PO Q6H PRN #28 tab 09/20/21 Allergies Allergy/AdvReac Type Severity Reaction Status Date / Time amoxicillin [From Augmentin] AdvReac Nausea Verified 09/19/21 13:59 clavulanic acid AdvReac Nausea Verified 09/19/21 13:59 [From Augmentin] Review of Systems ROS Statement: Those systems with pertinent positive or pertinent negative responses have been documented in the HPI. ROS Other: All systems not noted in ROS Statement are negative. Past Medical History Past Medical History: GERD/Reflux Additional Past Medical History / Comment(s): MIGRAINES, HX OF Peptic Ulcer, ANEMIA and vertigo. .Previous ruptured ovarian cyst, IBS History of Any Multi-Drug Resistant Organisms: None Reported Date of last positivie culture/infection: 2011 Past Surgical History: Section Additional Past Surgical History / Comment(s): D&C times 2 for spontaneous abortions., . X3. EGD 2019. Past Anesthesia/Blood Transfusion Reactions: Motion Sickness, Postoperative Nausea & Vomiting (PONV) Past Psychological History: No Psychological Hx Reported Smoking Status: Former smoker Past Alcohol Use History: Occasional Past Drug Use History: None Reported - Past Family History Father Additional Family Medical History / Comment(s): Father has an autoimmune disorder. breast cancer PGM and PGGM. Mother Family Medical History: Cancer Additional Family Medical History / Comment(s): Renal cancer. Maternal aunt had breast cancer and renal cancer. Sister(s) Family Medical History: Cancer Additional Family Medical History / Comment(s): Precancerous breast cyst. General Exam Limitations: no limitations General appearance: alert, in no apparent distress, other (This is a well- developed, well-nourished adult female patient in no acute distress) Eye exam: Present: normal appearance, PERRL, EOMI. Absent: scleral icterus, conjunctival injection, periorbital swelling ENT exam: Present: normal exam, normal oropharynx, mucous membranes moist Respiratory exam: Present: normal lung sounds bilaterally. Absent: respiratory distress, wheezes, rales, rhonchi, stridor Cardiovascular Exam: Present: regular rate, normal rhythm, normal heart sounds. Absent: systolic murmur, diastolic murmur, rubs, gallop, clicks GI/Abdominal exam: Present: soft, normal bowel sounds. Absent: distended, tenderness, guarding, rebound, rigid Neurological exam: Present: alert, oriented X3, CN II-XII intact Psychiatric exam: Present: normal affect, normal mood Skin exam: Present: warm, dry, intact, normal color. Absent: rash Course Vital Signs 09/19/21 09/20/21 21:36 02:38 Temperature 98.6 F 97.8 F Pulse Rate 109 H 96 Respiratory 18 18 Rate Blood Pressure 155/84 117/76 O2 Sat by Pulse 99 98 Oximetry Medical Decision Making - Medical Decision Making 35 year-old female patient presented to the emergency department for evaluation of intense nausea. States is her third visit for similar symptoms. Physical examination is unremarkable. Vital signs are normal except for mildly elevated heart rate mildly elevated blood pressure. Labs reviewed and are unremarkable. KUB is negative. Brain CT negative. I did discuss findings and results with her. She was given Compazine and Pepcid here. Upon reevaluation she is resting comfortably states she is feeling better. She was able to tolerate saltine crackers and orange juice. She'll be discharged with prescriptions for Compazine and Pepcid. She is instructed to follow-up with her primary care physician for recheck as soon as possible. Return parameters were discussed in detail. She verbalizes understanding and agrees with this plan. My attending is Dr. Sanchez. - Lab Data Result diagrams: 09/20/21 00:19 09/20/21 00:19 Lab Results 09/19/21 09/20/21 09/20/21 Range/Units 21:39 00:19 00:19 WBC 7.8 (3.8-10.6) k/uL RBC 4.35 (3.80-5.40) m/uL Hgb 13.7 (11.4-16.0) gm/dL Hct 39.7 (34.0-46.0) % MCV 91.4 (80.0-100.0) fL MCH 31.5 (25.0-35.0) pg MCHC 34.5 (31.0-37.0) g/dL RDW 12.5 (11.5-15.5) % Plt Count 255 (150-450) k/uL MPV 7.9 Neutrophils % 68 % Lymphocytes % 24 % Monocytes % 5 % Eosinophils % 0 % Basophils % 0 % Neutrophils # 5.4 (1.3-7.7) k/uL Lymphocytes # 1.9 (1.0-4.8) k/uL Monocytes # 0.4 (0-1.0) k/uL Eosinophils # 0.0 (0-0.7) k/uL Basophils # 0.0 (0-0.2) k/uL Sodium 138 (137-145) mmol/L Potassium 3.8 (3.5-5.1) mmol/L Chloride 106 (98-107) mmol/L Carbon Dioxide 21 L (22-30) mmol/L Anion Gap 11 mmol/L BUN 5 L (7-17) mg/dL Creatinine 0.68 (0.52-1.04) mg/dL Est GFR (CKD-EPI)AfAm >90 (>60 ml/min/1.73 sqM) Est GFR (CKD-EPI)NonAf >90 (>60 ml/min/1.73 sqM) Glucose 111 H (74-99) mg/dL POC Glucose (mg/dL) 133 H (75-99) mg/dL POC Glu Pad Extraction Tender ID Felipe Hernandez Calcium 9.9 (8.4-10.2) mg/dL Total Bilirubin 2.3 H (0.2-1.3) mg/dL AST 24 (14-36) U/L ALT 11 (4-34) U/L Alkaline Phosphatase 59 (38-126) U/L Total Protein 7.9 (6.3-8.2) g/dL Albumin 4.9 (3.5-5.0) g/dL TSH 2.370 (0.465-4.680) mIU/L Urine Color Urine Appearance (Clear) Urine pH (5.0-8.0) Ur Specific [place] (1.001-1.035) Urine Protein (Negative) Urine Glucose (UA) (Negative) Urine Ketones (Negative) Urine Blood (Negative) Urine Nitrite (Negative) Urine Bilirubin (Negative) Urine Urobilinogen (<2.0) mg/dL Ur Leukocyte Esterase (Negative) Urine HCG, Qual (Not Detectd) 09/20/21 09/20/21 Range/Units 00:29 00:29 WBC (3.8-10.6) k/uL RBC (3.80-5.40) m/uL Hgb (11.4-16.0) gm/dL Hct (34.0-46.0) % MCV (80.0-100.0) fL MCH (25.0-35.0) pg MCHC (31.0-37.0) g/dL RDW (11.5-15.5) % Plt Count (150-450) k/uL MPV Neutrophils % % Lymphocytes % % Monocytes % % Eosinophils % % Basophils % % Neutrophils # (1.3-7.7) k/uL Lymphocytes # (1.0-4.8) k/uL Monocytes # (0-1.0) k/uL Eosinophils # (0-0.7) k/uL Basophils # (0-0.2) k/uL Sodium (137-145) mmol/L Potassium (3.5-5.1) mmol/L Chloride (98-107) mmol/L Carbon Dioxide (22-30) mmol/L Anion Gap mmol/L BUN (7-17) mg/dL Creatinine (0.52-1.04) mg/dL Est GFR (CKD-EPI)AfAm (>60 ml/min/1.73 sqM) Est GFR (CKD-EPI)NonAf (>60 ml/min/1.73 sqM) Glucose (74-99) mg/dL POC Glucose (mg/dL) (75-99) mg/dL POC Glu Pad Extraction Tender ID Calcium (8.4-10.2) mg/dL Total Bilirubin (0.2-1.3) mg/dL AST (14-36) U/L ALT (4-34) U/L Alkaline Phosphatase (38-126) U/L Total Protein (6.3-8.2) g/dL Albumin (3.5-5.0) g/dL TSH (0.465-4.680) mIU/L Urine Color Light Yellow Urine Appearance Clear (Clear) Urine pH 7.0 (5.0-8.0) Ur Specific [place] 1.008 (1.001-1.035) Urine Protein Negative (Negative) Urine Glucose (UA) Negative (Negative) Urine Ketones 1+ H (Negative) Urine Blood Negative (Negative) Urine Nitrite Negative (Negative) Urine Bilirubin Negative (Negative) Urine Urobilinogen <2.0 (<2.0) mg/dL Ur Leukocyte Esterase Negative (Negative) Urine HCG, Qual Not Detected (Not Detectd) - Radiology Data Radiology results: report reviewed, image reviewed CT brain without contrast was obtained. Report was reviewed in its entirety. Impression by Dr. Becerra shows normal unenhanced head computed tomography scan. No change. KUB x-ray was obtained. Report was reviewed in its entirety. Impression by Dr. Becerra shows nonacute abdomen. Disposition Clinical Impression: Nausea Disposition: HOME SELF-CARE Condition: Good Instructions (If sedation given, give patient instructions): Acute Nausea and Vomiting (ED) Additional Instructions: Take medication as directed. Follow up with your primary care physician for recheck in 1-2 days. Return for any new, worsening, or concerning symptoms. Prescriptions: Prochlorperazine [Compazine] 10 mg PO Q6H PRN #28 tab PRN Reason: Nausea Famotidine [Pepcid] 20 mg PO HS #30 tablet Is patient prescribed a controlled substance at d/c from ED?: No Referrals: Lidya Perez MD [Primary Care Provider] - 1-2 days Time of Disposition: 02:37
[2021-09-20 02:40] VITALS: BP 117/76; PULSE 96; TEMP 97.8
== END 2021-09-20 02:47 | disposition home or self-care (01) ==
LOC: EC 21:24
DX: R11.2 Nausea with vomiting, unspecified (principal); K21.9 Gastro-esophageal reflux disease without esophagitis; Z88.0 Allergy status to penicillin; Z88.1 Allergy status to other antibiotic agents; Z87.11 Personal history of peptic ulcer disease; Z87.891 Personal history of nicotine dependence
CPT/HCPCS: 99284; 96374; 96375 ×2; 96361; 36415; 80053; 84443; 85025; 81003; 81025; 74018; 70450; J1200; J0780

== ENCOUNTER → 2021-09-19 | Outpatient (CLI) | payer BC ==
[2021-09-19 18:03] LABS: Basophils # (A) 0.03 X 10*3/uL (0.00-0.10); Basophils % (A) 0.5 %; Eosinophils # (A) 0.13 X 10*3/uL (0.04-0.35); Eosinophils % (A) 2.2 %; HCT 37.4 % (37.2-46.3); HGB 12.3 g/dL (12.0-15.0); Lymphocytes # (A) 1.38 X 10*3/uL (0.90-5.00); Lymphocytes % (A) 23.6 %; MCH 30.6 pg (27.0-32.0); MCHC 32.9 g/dL (32.0-37.0); Mean Platelet Volume 11.1 fL (9.5-12.2); Monocytes # (A) 0.45 X 10*3/uL (0.20-1.00); Monocytes % (A) 7.7 %; Neutrophils # (A) 3.85 X 10*3/uL (1.80-7.70); Neutrophils % (A) 65.8 %; Platelet Count 192 X 10*3/uL (140-440); RBC 4.02 X 10*6/uL (4.10-5.20); RDW 11.9 % (11.5-14.5); WBC 5.85 X 10*3/uL (4.50-10.00)
[2021-09-19 20:55] LABS: Chol/HDL Ratio 1.99 Ratio; LDL Cholesterol,Calculated 61.7 mg/dL (0.0-131.0); Triglycerides 51.3 mg/dL (0.00-149.00); VLDL Calculation 10.26 mg/dL (5.00-40.00)
[2021-09-19 21:28] LABS: Albumin 4.8 g/dL (3.8-4.9); Albumin/Globulin Ratio 2.13 (1.60-3.17); Anion Gap 15.9 mmol/L (4.00-12.00); BUN/Creat Ratio 8.15 Ratio (12.00-20.00); Blood Urea Nitrogen 6.3 mg/dL (9.0-27.0); Calcium 9.6 mg/dL (8.7-10.3); Carbon Dioxide 21.3 mmol/L (21.6-31.8); Globulin 2.2 g/dL (1.6-3.3); Non-African American GFR(CKD) 99.2 (60.0-200.0); Potassium 3.7 mmol/L (3.5-5.5); Total Bilirubin 2.2 mg/dL (0.30-1.20)
== END | disposition home or self-care (01) ==
LOC: LABWHC1 12:45
PROVIDERS: ATTEND Family Medicine
DX: R63.4 Abnormal weight loss (principal); R11.2 Nausea with vomiting, unspecified; R59.1 Generalized enlarged lymph nodes; R53.83 Other fatigue
CPT/HCPCS: 36415; 80053; 80061; 82150; 82533; 83690; 85025

== ENCOUNTER → 2021-10-15 | Outpatient (CLI) | payer BC ==
--- NOTE | 2021-10-15 15:15 | NM ---
EXAMINATION TYPE: NM hepatobiliary w CCK DATE OF EXAM: 10/15/2021 COMPARISON: Gallbladder ultrasound November 04, 2020 HISTORY: Right upper quadrant pain. Diminished appetite with nausea and reflux. TECHNIQUE: After the intravenous administration of 4.4 mCi Tc 99m Mebrofenin hepatobiliary scintigrap hy is performed. Immediate images post injection. FINDINGS: There is satisfactory initial accumulation of tracer by the liver. The gallbladder is visualized wit hin 30 minutes. The small bowel activity is noted within 60 minutes. At one hour CCK was administer ed, patient was injected with 1 mcg of Kinevac, and gallbladder ejection fraction is calculated at 92 %, not deviated from the normal range. Therefore there is no scintigraphic evidence of cystic or co mmon bile duct obstruction to suggest acute cholecystitis. IMPRESSION: Ejection fraction is 92%, not deviated from the normal range.
== END | disposition home or self-care (01) ==
LOC: RADNMMAIN 12:51
PROVIDERS: ATTEND Family Medicine
DX: R10.11 Right upper quadrant pain (principal)
CPT/HCPCS: 78227; A9537; J2805

== ENCOUNTER → 2021-10-16 | Outpatient (CLI) | payer BC ==
--- NOTE | 2021-10-16 15:30 | US ---
EXAMINATION TYPE: US thyroid st tissue head/neck DATE OF EXAM: 10/16/2021 COMPARISON: NONE CLINICAL HISTORY: R59.1 Generalized enlarged lymph nodes. FINDINGS: Left neck level 4 echogenic foci with shadowing seen measuring 0.4cm Largest lymph node noted on the right 1.2x0.5cm Largest lymph node noted on the left 1.4x0.4cm IMPRESSION: 1. Lymphadenopathy. If additional evaluation would be of benefit, CT with contrast of the soft tissue neck would be recommended.
== END | disposition home or self-care (01) ==
LOC: RADUSWWP 14:47
PROVIDERS: ATTEND Family Medicine
DX: R59.1 Generalized enlarged lymph nodes (principal)
CPT/HCPCS: 76536

== ENCOUNTER → 2021-10-30 | Outpatient (CLI) | payer BC ==
--- NOTE | 2021-10-30 11:50 | CT ---
EXAMINATION TYPE: CT soft tissue neck w con DATE OF EXAM: 10/30/2021 HISTORY: enlarged lymph nodes, abnormal US COMPARISON: Thyroid ultrasound [address] DLP: 284.1 mGycm. Automated Exposure Control for Dose Reduction was Utilized. TECHNIQUE: CT scan of the neck is performed with IV Contrast, patient injected with 100 mL of Isovue 300, axial images are obtained, coronal and sagittal reformatted images are reviewed. FINDINGS: Airway: No gross abnormality seen. Parotid/submandibular glands: No gross abnormality seen. Carotid/Vascular Structures: No significant abnormality. Osseous Structures: Posterior spur disc complexes and/or spurring C5-C6 and C6-C7 level effaces anter ior thecal sac . Other: No suspicious greater than 1 cm neck lymph nodes identified bilaterally. Prominent but subcent imeter lymph nodes on recent ultrasound not clearly seen on this study. Some scattered bilateral subc entimeter lymph nodes particularly seen best in the posterior cervical triangles are present. IMPRESSION: No definitive abnormal greater than 1 cm neck lymph nodes are seen. No suspicious masses noted.
== END | disposition home or self-care (01) ==
LOC: RADCTMAIN 10:41
PROVIDERS: ATTEND Family Medicine
DX: R59.0 Localized enlarged lymph nodes (principal)
CPT/HCPCS: 70491; Q9967

== ENCOUNTER → 2021-11-29 | Outpatient (CLI) | payer BC ==
[2021-11-29 21:46] LABS: Estradiol 63.2 pg/mL; Luteinizing Hormone 5.4 mIU/mL; Testosterone 18.5 ng/mL (9.01-47.94)
[2021-11-29 21:47] LABS: Follicle Stimulating Hormone 4.7 mIU/mL
== END | disposition home or self-care (01) ==
LOC: LABWHC1 13:10
PROVIDERS: ATTEND Family Medicine
DX: Z01.812 Encounter for preprocedural laboratory examination (principal); Z20.818 Contact with and (suspected) exposure to other bacterial communicable diseases; R42 Dizziness and giddiness
CPT/HCPCS: 36415; 82670; 83001; 83002; 84144; 84402; 84403; 86618

== ENCOUNTER → 2022-01-21 | Outpatient (CLI) | payer BC ==
[2022-01-21 11:39] VITALS: BP 129/87; PULSE 83; RESP 18; TEMP 98
--- NOTE | 2022-01-21 12:23 | P.HPOB ---
History of Present Illness H&P Date: 01/21/22 Chief Complaint: The patient is here for her routine gynecologic exam. This is a 36-year-old 0-3 with an LMP of 01/14/2022. The patient's is status post vasectomy. Menstrual periods continue to be about every month. She has a history of intermittent hypermenorrhea and occasionally uses meclofenamate when her menstrual flow is heavy. She states this helps decrease the flow. She states with most menstrual periods the medication is not needed. She has noticed more breast tenderness and wakes with night sweats just before her menstrual period. She is otherwise without complaints. Review of Systems The patient has lost 9 pounds over the last year. She denies respiratory, cardiac, or G.I. problems. Past Medical History Past Medical History: GERD/Reflux Additional Past Medical History / Comment(s): MIGRAINES, HX OF Peptic Ulcer, ANEMIA and vertigo. IBS. 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 Previous ruptured ovarian cyst. History of Any Multi-Drug Resistant Organisms: None Reported Date of last positivie culture/infection: 2011 Past Surgical History: Section Additional Past Surgical History / Comment(s): D&C times 2 for spontaneous abortions., . X3. EGD 2019. Past Anesthesia/Blood Transfusion Reactions: Motion Sickness, Postoperative Nausea & Vomiting (PONV) Past Psychological History: No Psychological Hx Reported Smoking Status: Former smoker Past Alcohol Use History: Occasional (5 per week) Additional Past Alcohol Use History / Comment(s): SMOKED YOUNG TEENAGER. 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 - Past Family History Father Additional Family Medical History / Comment(s): Father has an autoimmune disorder. breast cancer PGM and PGGM. Mother Family Medical History: Cancer Additional Family Medical History / Comment(s): Renal cancer. Maternal aunt had breast cancer and renal cancer. Sister(s) Family Medical History: Cancer Additional Family Medical History / Comment(s): Precancerous breast cyst. Medications and Allergies Home Medications Medication Instructions Recorded Confirmed Type Ondansetron [Zofran ODT] 4 mg PO Q8HR PRN #15 tab 09/17/21 01/21/22 Rx Famotidine [Pepcid] 20 mg PO HS #30 tablet 09/20/21 01/21/22 Rx Meclizine [Antivert] 25 mg PO DAILY 01/21/22 01/21/22 History Allergies Allergy/AdvReac Type Severity Reaction Status Date / Time metoclopramide [From Reglan] Allergy Rapid Unverified 01/21/22 11:24 Heart Rate amoxicillin [From Augmentin] AdvReac Nausea Verified 01/21/22 11:24 clavulanic acid AdvReac Nausea Verified 01/21/22 11:24 [From Augmentin] Exam Vital Signs Temp Pulse Resp BP Pulse Ox 01/21/22 11:35 98 F 83 18 129/87 96 Intake and Output 01/20/22 01/21/22 01/21/22 22:59 06:59 14:59 Other: Weight 52.617 kg Height 5 feet 5-1/2 inches, weight 116 pounds, BMI 19.0. This is a well-developed well-nourished white female who is alert and oriented times 3 in no acute distress. HEENT: Within normal limits. NECK: Supple without mass or thyromegaly. CHEST AND LUNGS: Clear to auscultation. HEART: Regular rate and rhythm. BREASTS: Are without mass or discharge. AXILLARY EXAM: Negative for adenopathy. BACK: Negative for CVA tenderness. ABDOMEN: Soft, nontender, without palpable masses. PELVIC EXAM: Normal external genitalia. Cervix and vagina appear normal. There is a small amount of menstrual blood in the vagina. There is no unusual discharge. There is no evidence of prolapse. The uterus is midposition, nongravid size and nontender. There are no palpable adnexal masses or tenderness. RECTAL EXAM: negative for mass or tenderness. EXTREMITIES: Nontender. IMPRESSION: 1. 36-year-old female whose is status post vasectomy, with normal gynecologic exam. 2. History of mild hypermenorrhea improved with meclofenamate sodium, with no significant physical findings on exam today. 3. Family history of breast cancer in 3 second-degree relatives. PLAN: 1. Pap smear was deferred since she had a normal Pap smear cotest on 10/10/2020. 2. Self breast awareness was discussed with the patient. We have also discussed symptoms associated with inflammatory breast cancer. 3. Baseline screening mammogram was done on 10/10/2020 this was benign. This was done because of her family history of breast cancer in 3 second-degree relatives. We will plan on repeating the mammogram in 1 year at the time of her annual well woman examination. 4. She has not received a Covid vaccination and she does not plan to get the Covid vaccination. She understands that the Covid vaccination is recommended. We have discussed pros and cons of the vaccination. She does not plan to get the vaccination. 5. Meclofenamate sodium as needed for heavy menstrual flow. She will call if she needs a refill. She states she does not need a refill at this time. 6. She was advised to return in one year for her annual well woman exam.
== END ==
LOC: WWCWWP 11:09
PROVIDERS: ATTEND Obstetrics & Gynecology
DX: Z01.419 Encounter for gynecological examination (general) (routine) without abnormal findings (principal); G43.909 Migraine, unspecified, not intractable, without status migrainosus; Z87.891 Personal history of nicotine dependence; Z80.3 Family history of malignant neoplasm of breast; Z88.1 Allergy status to other antibiotic agents; Z88.8 Allergy status to other drugs, medicaments and biological substances

== ENCOUNTER 2022-05-01 21:09 | Emergency (ER) | payer BC ==
[2022-05-01 21:21] VITALS: BP 145/79; PULSE 96; RESP 18; TEMP 98.7
[2022-05-01] MEDS ORDERED: PROCHLORPERAZINE INJ 10 MG/2 ML VIAL IVP STA (21:24)
[2022-05-01] MEDS ORDERED: diphenhydrAMINE 50 MG/ML 1 ML VIAL IVP STA (21:24)
[2022-05-01] MEDS ORDERED: KETOROLAC 15 MG/ML 1 ML VIAL IVP STA (21:24)
[2022-05-01] MEDS ORDERED: SODIUM CHLORIDE 0.9% 1,000 ML IV ONE (21:24)
[2022-05-01] MEDS ORDERED: MECLIZINE 12.5 MG TAB PO STA (21:24)
[2022-05-01] MEDS ORDERED: SCOPOLAMINE 1 MG/72 HR PATCH TRANSDERM STA (21:25)
--- NOTE | 2022-05-01 21:28 | ED ---
Dizziness HPI - General Chief Complaint: Dizziness Stated Complaint: vertigo Time Seen by Provider: 05/01/22 21:12 Source: patient, EMS, RN notes reviewed Mode of arrival: EMS Limitations: no limitations - History of Present Illness Initial Comments: This is a pleasant 36-year-old female who presents complaining of a migraine headache with vertigo that started about 5 PM. She states it started gradually. Patient does have a history of migraine headaches and states that this seems to be consistent with what she has felt in the past. She is describing aching and throbbing headache to the right side. Patient has long-standing migraine h eadaches with associated vertigo. She states she's had symptoms such as this previously. Patient does take a triptan medication at home and try that with no relief. Patient states she usually had to come to the ER for a headache in November. no fever or chills, no changes in vision or hearing, no sore throat or difficulty with speech, no neck pain, no chest pain or shortness of breath, no abdominal pain, no nausea or vomiting, no changes in urination or bowel movements, no numbness or tingling, no extremity pain, no skin rashes or lesions. MD Complaint: dizziness - Related Data Home Medications Medication Instructions Recorded Confirmed LORazepam [Ativan] 0.5 mg PO BID PRN 05/01/22 05/01/22 Verapamil HCl [Verapamil ER] 120 mg PO DAILY 05/01/22 05/01/22 Previous Rx's Medication Instructions Recorded Meclizine [Antivert] 25 mg PO TID PRN #15 tab 05/01/22 Potassium Chloride ER [K-Dur 20] 20 meq PO DAILY #5 tab 05/01/22 Allergies Allergy/AdvReac Type Severity Reaction Status Date / Time metoclopramide [From Reglan] Allergy Rapid Verified 05/01/22 22:21 Heart Rate amoxicillin [From Augmentin] AdvReac Nausea Verified 05/01/22 22:21 clavulanic acid AdvReac Nausea Verified 05/01/22 22:21 [From Augmentin] Review of Systems ROS Statement: Those systems with pertinent positive or pertinent negative responses have been documented in the HPI. ROS Other: All systems not noted in ROS Statement are negative. Past Medical History Past Medical History: GERD/Reflux Additional Past Medical History / Comment(s): MIGRAINES, HX OF Peptic Ulcer, ANEMIA and vertigo. 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 Previous ruptured ovarian cyst. History of Any Multi-Drug Resistant Organisms: None Reported Date of last positivie culture/infection: 2011 Past Surgical History: Section Additional Past Surgical History / Comment(s): D&C times 2 for spontaneous abortions., . X3. EGD 2019. Past Anesthesia/Blood Transfusion Reactions: Motion Sickness, Postoperative Nausea & Vomiting (PONV) Past Psychological History: No Psychological Hx Reported Smoking Status: Former smoker Past Alcohol Use History: Occasional Past Drug Use History: None Reported - Past Family History Father Additional Family Medical History / Comment(s): Father has an autoimmune disorder. breast cancer PGM and PGGM. Mother Family Medical History: Cancer Additional Family Medical History / Comment(s): Renal cancer. Maternal aunt had breast cancer and renal cancer. Sister(s) Family Medical History: Cancer Additional Family Medical History / Comment(s): Precancerous breast cyst. General Exam - General Exam Comments Initial Comments: Cranial nerves II through XII grossly intact. Patient in distress secondary to migraine headache. Does not appear to have any focal neurologic deficits. Limitations: no limitations General appearance: alert, in distress Head exam: Present: atraumatic, normocephalic, normal inspection Eye exam: Present: normal appearance, PERRL, EOMI. Absent: scleral icterus, conjunctival injection, periorbital swelling ENT exam: Present: normal exam, mucous membranes moist Neck exam: Present: normal inspection. Absent: tenderness, meningismus, lymphadenopathy Respiratory exam: Present: normal lung sounds bilaterally. Absent: respiratory distress, wheezes, rales, rhonchi, stridor Cardiovascular Exam: Present: regular rate, normal rhythm, normal heart sounds. Absent: systolic murmur, diastolic murmur, rubs, gallop, clicks GI/Abdominal exam: Present: soft, normal bowel sounds. Absent: distended, tenderness, guarding, rebound, rigid Extremities exam: Present: normal inspection, full ROM, normal capillary refill. Absent: tenderness, pedal edema, joint swelling, calf tenderness Back exam: Present: normal inspection Neurological exam: Present: alert, oriented X3, CN II-XII intact, normal gait. Absent: motor sensory deficit Expanded Patient oriented to: Present: person, place, time Speech: Present: fluid speech Cranial nerves: EOM's Intact: Normal, Gag Reflex: Normal, Tongue Deviation: Normal, Nystagmus: Normal, Facial Sensation: Normal, Facial Palsy with Forehead Movement: Normal, Facial Palsy without Forehead Movement: Normal Cerebellar function: Finger to Nose: Normal, Heel to Reese: Normal, Romberg: Normal Upper motor neuron: Fransisco Neglect: Normal, Pronator Drift: Normal, Babinski Sign: Normal, Sensory Extinction: Normal Sensory exam: Upper Extremity Light Touch: Normal, Upper Extremity Pin Prick: Normal, Lower Extremity Light Touch: Normal, Lower Extremity Pin Prick: Normal Motor strength exam: RUE: 5, LUE: 5, RLE: 5, LLE: 5 Eye Response: (4) open spontaneously Motor Response: (6) obeys commands Verbal Response: (5) oriented Agustín Total: 15 Psychiatric exam: Present: normal affect, normal mood Skin exam: Present: warm, dry, intact, normal color. Absent: rash Course Vital Signs 05/01/22 21:19 Temperature 98.7 F Pulse Rate 96 Respiratory 18 Rate Blood Pressure 145/79 O2 Sat by Pulse 98 Oximetry - Reevaluation(s) Reevaluation #1: 05/01/22 23:33 Medical record is reviewed Symptoms are improved here in the emergency department Patient is informed of results and questions answered Patient in no distress Patient states she feels well enough to go home. Patient is asking for a short course of Antivert. Medical Decision Making - Medical Decision Making Patient presents with a migraine headache which was gradual onset. Not relieved with abortive medications at home. Patient states she also takes verapamil for prophylaxis. Patient states headache is consistent with what she is felt in the past. Patient previously has had associated vertigo with her headaches. Patient improved after treatment. Both the headache and the vertigo has improved. Patient's potassium was 3.1. I'm going to supplement have the patient's primary care physician recheck the potassium. I did inform the patient of this. Patient was informed of all other findings. Patient released in stable condition. Patient improved. Patient was told to return to the ER for any signs or symptoms worsen. Told to return immediately if any other problems arise. All questions answered. Treatment plan discussed. Patient in agreement Every effort has been made to ensure accuracy of this dictation. However, due to the limitations of electronic medical records and dictation devices, errors in charting still occur. Jewelry Appraiser, Dr. Perry - Lab Data Result diagrams: 05/01/22 21:54 05/01/22 21:54 Lab Results 05/01/22 05/01/22 Range/Units 21:54 21:54 WBC 6.9 (3.8-10.6) k/uL RBC 4.16 (3.80-5.40) m/uL Hgb 12.4 (11.4-16.0) gm/dL Hct 38.3 (34.0-46.0) % MCV 92.2 (80.0-100.0) fL MCH 29.7 (25.0-35.0) pg MCHC 32.3 (31.0-37.0) g/dL RDW 12.0 (11.5-15.5) % Plt Count 233 (150-450) k/uL MPV 7.2 Neutrophils % 70 % Lymphocytes % 22 % Monocytes % 5 % Eosinophils % 0 % Basophils % 1 % Neutrophils # 4.8 (1.3-7.7) k/uL Lymphocytes # 1.5 (1.0-4.8) k/uL Monocytes # 0.4 (0-1.0) k/uL Eosinophils # 0.0 (0-0.7) k/uL Basophils # 0.1 (0-0.2) k/uL Sodium 138 (137-145) mmol/L Potassium 3.1 L (3.5-5.1) mmol/L Chloride 113 H (98-107) mmol/L Carbon Dioxide 19 L (22-30) mmol/L Anion Gap 6 mmol/L BUN 6 L (7-17) mg/dL Creatinine 0.67 (0.52-1.04) mg/dL Est GFR (CKD-EPI)AfAm >90 (>60 ml/min/1.73 sqM) Est GFR (CKD-EPI)NonAf >90 (>60 ml/min/1.73 sqM) Glucose 108 H (74-99) mg/dL Calcium 8.2 L (8.4-10.2) mg/dL Magnesium 1.8 (1.6-2.3) mg/dL Total Bilirubin 0.8 (0.2-1.3) mg/dL AST 18 (14-36) U/L ALT 10 (4-34) U/L Alkaline Phosphatase 48 (38-126) U/L Total Protein 6.5 (6.3-8.2) g/dL Albumin 4.0 (3.5-5.0) g/dL Disposition Clinical Impression: Migraine headache, Vertigo, Hypokalemia Disposition: HOME SELF-CARE Condition: Stable Instructions (If sedation given, give patient instructions): Vertigo (ED), Migraine Headache (ED), Hypokalemia (ED) Additional Instructions: Follow-up with your regular physician as directed. Follow-up with your neurologist as well. Call in the morning for appointment. Return to the ER immediately if any symptoms worsen, new symptoms arise, or any other problems develop. Is patient prescribed a controlled substance at d/c from ED?: No Referrals: Lidya Perez MD [Primary Care Provider] - 1-2 days Time of Disposition: 23:36
[2022-05-01 22:14] LABS: Basophils # (A) 0.1 k/uL (0-0.2); Basophils % (A) 1 %; Eosinophils % (A) 0 %; HCT 38.3 % (34.0-46.0); HGB 12.4 gm/dL (11.4-16.0); Lymphocytes # (A) 1.5 k/uL (1.0-4.8); Lymphocytes % (A) 22 %; MCH 29.7 pg (25.0-35.0); MCHC 32.3 g/dL (31.0-37.0); MCV 92.2 fL (80.0-100.0); Mean Platelet Volume 7.2; Monocytes # (A) 0.4 k/uL (0-1.0); Monocytes % (A) 5 %; Neutrophils # (A) 4.8 k/uL (1.3-7.7); Neutrophils % (A) 70 %; Platelet Count 233 k/uL (150-450); RBC 4.16 m/uL (3.80-5.40); WBC 6.9 k/uL (3.8-10.6)
[2022-05-01 22:25] LABS: ALT 10 U/L (4-34); AST 18 U/L (14-36); African American GFR (CKD) >90 (>60 ml/min/1.73 sqM); Alkaline Phosphatase 48 U/L (38-126); Anion Gap 6 mmol/L; Blood Urea Nitrogen 6 mg/dL (7-17); Calcium 8.2 mg/dL (8.4-10.2); Carbon Dioxide 19 mmol/L (22-30); Chloride 113 mmol/L (98-107); Glucose 108 mg/dL (74-99); Magnesium 1.8 mg/dL (1.6-2.3); Non-African American GFR(CKD) >90 (>60 ml/min/1.73 sqM); Potassium 3.1 mmol/L (3.5-5.1); Sodium 138 mmol/L (137-145); Total Bilirubin 0.8 mg/dL (0.2-1.3); Total Protein 6.5 g/dL (6.3-8.2)
[2022-05-01] MEDS: POTASSIUM CHLORIDE ER 20 MEQ TAB.ER PO SCH (23:10)
[2022-05-02] MEDS: POTASSIUM CHLORIDE ER 20 MEQ TAB.ER PO SCH (00:17)
== END 2022-05-02 00:17 | disposition home or self-care (01) ==
LOC: EC 21:09
DX: G43.909 Migraine, unspecified, not intractable, without status migrainosus (principal); E87.6 Hypokalemia; Z87.891 Personal history of nicotine dependence; Z88.8 Allergy status to other drugs, medicaments and biological substances; Z88.0 Allergy status to penicillin
CPT/HCPCS: 36415; 80053; 83735; 85025; 99284; 96374; 96375; 96361; J1200; J0780; J1885

== ENCOUNTER → 2022-05-07 | Outpatient (CLI) | payer BC ==
[2022-05-07 18:18] LABS: African American GFR (CKD) 95.3 (60.0-200.0); Anion Gap 12.8 mmol/L (10.00-18.00); BUN/Creat Ratio 11.84 Ratio (12.00-20.00); Blood Urea Nitrogen 10.6 mg/dL (9.0-27.0); Calcium 9.7 mg/dL (8.7-10.3); Carbon Dioxide 25.3 mmol/L (20.0-27.5); Non-African American GFR(CKD) 82.2 (60.0-200.0); Potassium 3.6 mmol/L (3.5-5.5)
== END | disposition home or self-care (01) ==
LOC: LABWHC1 11:58
PROVIDERS: ATTEND Family Medicine
DX: E87.6 Hypokalemia (principal)
CPT/HCPCS: 36415; 80048

== ENCOUNTER → 2022-10-01 | Outpatient (CLI) | payer BC ==
--- NOTE | 2022-10-02 12:10 | MR ---
EXAMINATION TYPE: MR iac wo/w con DATE OF EXAM: 10/01/2022 COMPARISON: CT brain September 20, 2021. HISTORY: Vertigo, left ear pain. TECHNIQUE: Multiplanar, multisequence images of the brain and brainstem is performed without and with IV contras t, utilizing 5.5 mL intravenous Gadavist . Acoustic nerve disorder protocol. FINDINGS: Diffusion weighted images demonstrate no evidence of a recent infarct or other diffusion ab normality. There is no extra-axial fluid collection or significant white matter signal abnormality. The ventricular system and cisternal spaces are normal in size and appearance. The brain volume is age appropriate. Midline structures demonstrate normal morphology. The craniocervical junction appears within normal limits. Normal vascular flow voids are seen. The globes are intact and the visualized sinuses are priyanka ar. Mastoid air cells show no suspicious opacification bilaterally. The vestibulocochlear complexes are s ymmetric and felt within normal limits. There is no suspicious enhancing cerebellopontine angle mass identified bilaterally. IMPRESSION: No significant findings seen to account for patient's symptoms of vertigo and left ear pa in.
== END | disposition home or self-care (01) ==
LOC: RADMRIMAIN 19:16
PROVIDERS: ATTEND Otolaryngology
DX: R42 Dizziness and giddiness (principal)
CPT/HCPCS: 70553; A9585

== ENCOUNTER → 2022-11-26 | Outpatient (CLI) | payer BC ==
[2022-11-26 16:32] LABS: C Reactive Protein <0.30 mg/dL (0.00-0.80); Creatine Kinase 65 U/L (26-186); Rheumatoid Factor, Qnt <10 IU/mL (0-15)
[2022-11-26 21:40] LABS: Anti-DNA, DS unit <1.0 IU/mL; DNA Double-Stranded NEGATIVE (NEGATIVE)
== END | disposition home or self-care (01) ==
LOC: LABWHC1 09:33
PROVIDERS: ATTEND Family Medicine
DX: M35.9 Systemic involvement of connective tissue, unspecified (principal)
CPT/HCPCS: 36415; 82550; 84443; 85652; 86038; 86140; 86225; 86235; 86431; 86618

== ENCOUNTER → 2023-04-16 | Outpatient (CLI) | payer BC ==
--- NOTE | 2023-04-16 15:37 | CT ---
EXAMINATION TYPE: CT sinus wo con DATE OF EXAM: 04/16/2023 COMPARISON: 10/30/2021 HISTORY: Chronic sinusitis and jaw pain. CT DLP: 611 mGycm. Automated Exposure Control for Dose Reduction was Utilized. TECHNIQUE: CT scan of the sinuses is performed without contrast, axial images are obtained, coronal r eformatted images are also reviewed. FINDINGS: The paranasal sinuses including the frontal, ethmoid, sphenoid, and maxillary sinuses bila terally are well-aerated without abnormal opacification. The ostiomeatal complex is patent bilateral ly on the coronal images. Visualized portion of mastoid air cells show no abnormal opacification. The globes are intact bilate rally. Nasal septal deviation noted. IMPRESSION: The sinuses are clear and the ostiomeatal complex is patent bilaterally.
== END | disposition home or self-care (01) ==
LOC: RADCTMAIN 10:34
PROVIDERS: ATTEND Otolaryngology
DX: J32.9 Chronic sinusitis, unspecified (principal)
CPT/HCPCS: 70486

== ENCOUNTER → 2023-07-28 | Outpatient (CLI) | payer BC ==
--- NOTE | 2023-07-28 21:22 | US ---
EXAMINATION TYPE: US kidneys/renal and bladder DATE OF EXAM: 07/28/2023 COMPARISON: NONE CLINICAL INDICATION: Female, 37 years old with history of R10.9 UNSPECIFIED ABDOMINAL PAIN; urinary f requency, mother had renal CA at age 39 EXAM MEASUREMENTS: Right Kidney: 9.8 x 4.1 x 4.1 cm Left Kidney: 10.4 x 4.9 x 5.1 cm Right Kidney: Mild pelviectasis or extrarenal pelvis. No redd calyceal dilatation. No mass identifie d by ultrasound. Left Kidney: No hydronephrosis or masses seen Bladder: wnl IMPRESSION: Mild pelviectasis on the right probably transient. No calyceal dilatation to suggest hydronephrosis.
== END | disposition home or self-care (01) ==
LOC: RADUSWWP 09:38
PROVIDERS: ATTEND Family Medicine
DX: N28.89 Other specified disorders of kidney and ureter (principal); R10.9 Unspecified abdominal pain; Z80.51 Family history of malignant neoplasm of kidney
CPT/HCPCS: 76770

== ENCOUNTER → 2023-09-24 | Outpatient (CLI) | payer BC ==
--- NOTE | 2023-09-24 16:33 | US ---
EXAMINATION TYPE: US thyroid st tissue head/neck DATE OF EXAM: 09/24/2023 COMPARISON: Thyroid ultrasound 10/16/2021, CT neck 10/30/2021 CLINICAL INDICATION: Female, 37 years old with history of R59.0 LOCALIZED ENLARGED LYMPH NODES; Enlar ged lymph nodes seen bilaterally TECHNIQUE: Multiple grayscale and color Doppler ultrasound images of the bilateral submandibular renetta ons in the region of concern. FINDINGS/IMPRESSION: Hypoechoic area seen at the area of lump near the right submandibular gland measuring 1.6 x 1.3 x 0.7 cm. No internal color flow identified. Favored to represent a prominent lymph node. Two hypoechoic areas seen on the left side of neck near the submandibular gland. Largest is measuring 1.1 x 1.0 x 0.6cm. 1 demonstrates a central fatty hilum. These are favored to represent prominent ly mph nodes. Bilateral favored prominent lymph nodes which are likely reactive. Consider follow-up ultrasound in 3 -6 months.
== END | disposition home or self-care (01) ==
LOC: RADUSWWP 15:59
PROVIDERS: ATTEND Otolaryngology
DX: R59.0 Localized enlarged lymph nodes (principal)
CPT/HCPCS: 76536

== ENCOUNTER → 2023-12-28 | Outpatient (CLI) | payer BC ==
--- NOTE | 2023-12-28 18:41 | US ---
EXAMINATION TYPE: US st tissue neck DATE OF EXAM: 12/28/2023 COMPARISON: NONE CLINICAL INDICATION: Female, 38 years old with history of R59.0 LOCALIZED ENLARGED LYMPH NODES; 3 mon th recheck bilateral neck lymph nodes FINDINGS: Whiskey Proof Reader notes: RIGHT NECK: * 1.4 x 0.5 x 1.1cm lymph node seen at patient's palpable area that measured 1.6 x 0.7 x 1.3cm on pr evious ultrasound LEFT NECK: * 1.1 x 0.5 x 1.4cm lymph node that measured 0.9 x 0.5 x 1.1cm on previous ultrasound, * 1.1 x 0.4 x 0.7cm lymph node seen at patient's palpable submandibular region IMPRESSION: 1. Some prominent lymph nodes remain on both sides of the neck and have slightly fluctuated in the in terval. A lymph node on the right base slightly smaller at 1.4 x 1.1 cm (versus 1.6 x 1.3 cm, previou sly). A lymph node on the left is slightly larger at 1.4 x 1.1 cm (versus 1.1 x 0.9 cm, previously). 2. A new palpable left subareolar space lymph node measuring 1.1 x 0.7 cm. These may be reactive/post inflammatory and can continue to be followed.
== END | disposition home or self-care (01) ==
LOC: RADUSWWP 09:11
PROVIDERS: ATTEND Otolaryngology
DX: R59.0 Localized enlarged lymph nodes (principal)
CPT/HCPCS: 76536

== ENCOUNTER → 2024-02-09 | Outpatient (CLI) | payer BC ==
[2024-02-09 09:59] VITALS: BP 123/85; PULSE 77; RESP 17; TEMP 97.8
--- NOTE | 2024-02-09 10:15 | P.HPOB ---
History of Present Illness H&P Date: 02/09/24 Chief Complaint: The patient is here for her routine gynecologic exam. This is a 38-year-old 0-3 with an LMP of 01/20/2024. The patient's is status post vasectomy. Menstrual periods are regular every month, but that are lasting about 9 days with 2-3 days of heavy flow. During the heavy days she tends to change her protection about every 1 hour. Cramping is not a big issue during her menstrual periods, but she does have some cramping around the time of ovulation. She also occasionally wakes up at night with sweats and this is mostly noted right before her menstrual period. She previously used meclofenamate sodium for her heavy menstrual flow and this did seem to help. She has not used it recently. She would like to get another prescription for this. About 3 months ago she had a 3 week episode where the right breast felt engorged, like she needed to nurse from that side. She denies any nipple discharge. It did resolve and she is no longer experiencing this. Review of Systems She has gained about 7 pounds over the past 2 years. She denies respiratory, cardiac, or GI problems. Past Medical History Past Medical History: GERD/Reflux Additional Past Medical History / Comment(s): MIGRAINES, HX OF Peptic Ulcer, ANEMIA and vertigo. 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 Previous ruptured ovarian cyst. History of Any Multi-Drug Resistant Organisms: None Reported Date of last positivie culture/infection: 2011 Past Surgical History: Section Additional Past Surgical History / Comment(s): D&C times 2 for spontaneous abortions., . X3. EGD 2019. Past Anesthesia/Blood Transfusion Reactions: Motion Sickness, Postoperative Nausea & Vomiting (PONV) Past Psychological History: No Psychological Hx Reported Smoking Status: Former smoker Past Alcohol Use History: Occasional (About 6 alcohol containing drinks per week.) Additional Past Alcohol Use History / Comment(s): SMOKED YOUNG TEENAGER. 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 - Past Family History Father Additional Family Medical History / Comment(s): Father has an autoimmune d isorder. breast cancer PGM and PGGM. Mother Family Medical History: Cancer Additional Family Medical History / Comment(s): Renal cancer. Maternal aunt had breast cancer and renal cancer. Sister(s) Family Medical History: Cancer Additional Family Medical History / Comment(s): Precancerous breast cyst. Medications and Allergies Home Medications Medication Instructions Recorded Confirmed Type LORazepam [Ativan] 0.5 mg PO BID PRN 05/01/22 02/09/24 History Meclizine [Antivert] 25 mg PO TID PRN #15 tab 05/01/22 02/09/24 Rx Allergies Allergy/AdvReac Type Severity Reaction Status Date / Time metoclopramide [From Reglan] Allergy Rapid Verified 02/09/24 09:16 Heart Rate amoxicillin [From Augmentin] AdvReac Nausea Verified 02/09/24 09:16 clavulanic acid AdvReac Nausea Verified 02/09/24 09:16 [From Augmentin] Exam Vital Signs Temp Pulse Resp BP Pulse Ox 02/09/24 09:29 97.8 F 77 17 123/85 99 Intake and Output 02/08/24 02/09/24 02/09/24 22:59 06:59 14:59 Other: Weight 55.792 kg Height 5 feet 4 inches, weight 123 pounds, BMI 21.1 This is a well-developed well-nourished white female who is alert and oriented times 3 in no acute distress. HEENT: Within normal limits. NECK: Supple without mass or thyromegaly. CHEST AND LUNGS: Clear to auscultation. HEART: Regular rate and rhythm. BREASTS: Are without mass or discharge. AXILLARY EXAM: Negative for adenopathy. BACK: Negative for CVA tenderness. ABDOMEN: Soft, nontender, without palpable masses. PELVIC EXAM: Normal external genitalia. Cervix and vagina appear normal. There is no unusual discharge. There is no evidence of prolapse. The uterus is midposition, nongravid size and nontender. There are no palpable adnexal masses or tenderness. RECTAL EXAM: negative for mass or tenderness. EXTREMITIES: Nontender. IMPRESSION: 1. 38-year-old female whose is status post vasectomy, with normal gynecologic exam. 2. Mild hypermenorrhea which previously was improved with meclofenamate sodium. No significant physical findings on exam today. 3. Family history of breast cancer in 3 second degree relatives. PLAN: 1. Pap smear was deferred since she had a negative Pap smear cotest on 10/10/2020. 2. Self breast awareness was discussed with the patient. We have also discussed symptoms associated with inflammatory breast cancer. 3. Because of her family history of breast cancer, I have recommended that she start yearly mammograms and the order slip was given to the patient for this. 4. Osteoporosis prevention was discussed. I have stressed the importance of adequate calcium, vitamin D and regular exercise. Recommended amounts of calcium and vitamin D were also discussed. 5. We will again have her use meclofenamate sodium 100 mg 3 times a day as needed for heavy menstrual flow, up to 6 days per cycle. The electronic prescription will be sent to [facility] on [facility]. We will consider referral for endometrial ablation if she is not having adequate improvement with this. 6. She was advised to return in one year for her annual well woman exam.
== END ==
LOC: WWCWWP 09:10
PROVIDERS: ATTEND Obstetrics & Gynecology
DX: N92.0 Excessive and frequent menstruation with regular cycle (principal); Z80.3 Family history of malignant neoplasm of breast; Z98.890 Other specified postprocedural states; Z88.0 Allergy status to penicillin; Z88.1 Allergy status to other antibiotic agents; Z88.8 Allergy status to other drugs, medicaments and biological substances; Z87.891 Personal history of nicotine dependence

== ENCOUNTER 2024-03-14 19:05 | Observation (INO) | payer BC ==
--- NOTE | 2024-03-14 19:18 | ED ---
Dizziness HPI - General Source: patient, family, RN notes reviewed Mode of arrival: ambulatory Limitations: no limitations <Elif Swann - Last Filed: 03/14/24 19:35> <Justin Rendon - Last Filed: 03/14/24 23:31> - General Stated Complaint: Dizziness Time Seen by Provider: 03/14/24 19:18 - History of Present Illness Initial Comments: Quick note: 38-year-old female presented to the ER with chief complaint of dizziness. She states since this morning she has been having dizziness and nausea. She does have a past medical history significant of iron deficiency anemia. She does states she is on her menstrual cycle and it is very heavy. She does report yesterday she was having occasional chest pain with shortness of breath. (Elif Swann) 38-year-old female presenting with chief complaint of dizziness, feeling like she will pass out. She has had this several times in the past associated with her menstrual cycle. She is also complaining of significant diarrhea which is also seems to be related to her menstrual cycle. She has no chest pain. She has seen several doctors in the past with diagnosis of vertigo and states this is somewhat similar. She has had workup with neurology. (Justin Rendon) - Related Data Home Medications Medication Instructions Recorded Confirmed LORazepam [Ativan] 0.5 mg PO BID PRN 05/01/22 02/09/24 Previous Rx's Medication Instructions Recorded Meclizine [Antivert] 25 mg PO TID PRN #15 tab 05/01/22 Meclofenamate Sodium 100 mg PO TID PRN #30 capsule 02/09/24 Allergies Allergy/AdvReac Type Severity Reaction Status Date / Time metoclopramide [From Reglan] Allergy Rapid Verified 03/14/24 19:25 Heart Rate amoxicillin [From Augmentin] AdvReac Nausea Verified 03/14/24 19:25 clavulanic acid AdvReac Nausea Verified 03/14/24 19:25 [From Augmentin] Review of Systems ROS Other: All systems not noted in ROS Statement are negative. <Elif Swann - Last Filed: 03/14/24 19:35> ROS Other: All systems not noted in ROS Statement are negative. <Justin Rendon - Last Filed: 04/29/24 23:31> ROS Statement: Those systems with pertinent positive or pertinent negative responses have been documented in the HPI. Past Medical History Past Medical History: GERD/Reflux Additional Past Medical History / Comment(s): MIGRAINES, HX OF Peptic Ulcer, ANEMIA and vertigo. IBS. 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 Previous ruptured ovarian cyst. History of Any Multi-Drug Resistant Organisms: None Reported Date of last positivie culture/infection: 2011 Past Surgical History: Section Additional Past Surgical History / Comment(s): D&C times 2 for spontaneous abortions., . X3. EGD 2019. Past Anesthesia/Blood Transfusion Reactions: Motion Sickness, Postoperative Nausea & Vomiting (PONV) Past Psychological History: No Psychological Hx Reported Smoking Status: Former smoker Past Alcohol Use History: Occasional (About 6 alcohol containing drinks per week.) Additional Past Alcohol Use History / Comment(s): SMOKED YOUNG TEENAGER. Past Drug Use History: None Reported - Past Family History Father Additional Family Medical History / Comment(s): Father has an autoimmune disorder. breast cancer PGM and PGGM. Mother Family Medical History: Cancer Additional Family Medical History / Comment(s): Renal cancer. Maternal aunt had breast cancer and renal cancer. Sister(s) Family Medical History: Cancer Additional Family Medical History / Comment(s): Precancerous breast cyst. <Elif Sawnn - Last Filed: 03/14/24 19:35> General Exam <Elif Swann - Last Filed: 03/14/24 19:35> General appearance: alert, in no apparent distress Head exam: Present: atraumatic, normocephalic Eye exam: Present: normal appearance, PERRL ENT exam: Present: normal exam Neck exam: Present: normal inspection. Absent: tenderness, meningismus Respiratory exam: Present: normal lung sounds bilaterally. Absent: respiratory distress, wheezes Cardiovascular Exam: Present: regular rate, normal rhythm GI/Abdominal exam: Present: soft. Absent: distended, tenderness, guarding Extremities exam: Present: normal inspection Neurological exam: Present: alert, oriented X3, CN II-XII intact. Absent: motor sensory deficit Psychiatric exam: Present: anxious Skin exam: Present: warm, dry, intact. Absent: cyanosis, diaphoretic <Justin Rendon - Last Filed: 03/14/24 23:31> - General Exam Comments Initial Comments: Visual Physical Exam Vital signs reviewed General: Well-appearing, nontoxic, no acute distress. Head: Normocephalic, atraumatic Eyes: PERRLA, EOMI ENT: Airway patent Chest: Nonlabored breathing Skin: No visual rash, normal skin tone Neuro: Alert and oriented 3 Musculoskeletal: No gross abnormalities (Elif Swann) Course Vital Signs 03/14/24 03/14/24 03/14/24 19:23 21:33 22:48 Temperature 98.3 F Pulse Rate 90 100 18 L Respiratory 18 32 H 15 Rate Blood Pressure 173/84 146/87 123/75 O2 Sat by Pulse 100 100 97 Oximetry Medical Decision Making <Elif Swann - Last Filed: 03/14/24 19:35> - Lab Data Result diagrams: 03/14/24 19:26 03/14/24 22:48 <Justin Rendon - Last Filed: 03/14/24 23:31> - Medical Decision Making I performed the quick note portion of this chart. Electronically signed by Elif Swann PA-C (Elif Swann) Was pt. sent in by a medical professional or institution (YAMILETH Adrian, BRIQUETTE MACHINE OPERATOR HELPER, urgent care, hospital, or prison...) When possible be specific @ -No Did you speak to anyone other than the patient for history (EMS, parent, family, police, friend...)? What history was obtained from this source @ -No Did you review nursing and triage notes (agree or disagree)? Why? @ -I reviewed and agree with nursing and triage notes Were old charts reviewed (outside hosp., previous admission, EMS record, old EKG, old radiological studies, urgent care reports/EKG's, prison records)? Report findings @ -No old charts were reviewed Differential Diagnosis differential Syncope: Valvular disease, hypertrophic cardiomyopathy, pulmonary embolism, tamponade, tachycardia, bradycardia, VA, hypovolemia, hemorrhage, dissection, anemia, intracranial hemorrhage, seizure, hypoglycemia, carbon monoxide poisoning, this is not meant to be an all-inclusive list. EKG interpreted by me (3pts min.). @Sinus tachycardia rate of 104, OH interval 124, QRS duration 90, QTc [address] segment elevation. X-rays interpreted by me (1pt min.). @ -Chest x-ray negative for acute cardiopulmonary disease CT interpreted by me (1pt min.). @ -None done U/S interpreted by me (1pt. min.). @ -None done What testing was considered but not performed or refused? (CT, X-rays, U/S, labs)? Why? @ -None What meds were considered but not given or refused? Why? @ -None Did you discuss the management of the patient with other professionals (professionals i.e. , PA, BRIQUETTE MACHINE OPERATOR HELPER, lab, RT, psych nurse, nephrology social worker, head of physics, teacher, aoc director combat plans officer, rn field case manager)? Give summary @ -No Was smoking cessation discussed for >3mins.? @ -No Was critical care preformed (if so, how long)? @ -No Were there social determinants of health that impacted care today? How? (Homelessness, low income, unemployed, alcoholism, drug addiction, transportation, low edu. Level, literacy, decrease access to med. care, assisted, rehab)? @ -No Was there de-escalation of care discussed even if they declined (Discuss DNR or withdrawal of care, Hospice)? DNR status @ -No What co-morbidities impacted this encounter? (DM, HTN, Smoking, COPD, CAD, Cancer, CVA, ARF, Chemo, Hep., AIDS, mental health diagnosis, sleep apnea, mo rbid obesity)? @ -None Was patient admitted / discharged? Hospital course, mention meds given and r oute, prescriptions, significant lab abnormalities, going to OR and other pertinent info. @ -38-year-old female with lightheadedness, near syncope, diarrhea. Patient given IV fluids, electrolytes and workup initiated. Patient is hypokalemic at 2.6. This is replaced with both IV and oral potassium. Her magnesium is 1.5. She is currently on her menstrual cycle and urinalysis is hemorrhagic. Urine test negative. Troponin and D-dimer negative. Patient observed overnight with IV fluids and electrolyte replacement. Case discussed with Shelia estrada for [facility]. TSH pending Undiagnosed new problem with uncertain prognosis? @ -No Drug Therapy requiring intensive monitoring for toxicity (Heparin, Nitro, Insulin, Cardizem)? @ -No Were any procedures done? @ -No Diagnosis/symptom? @ -Near syncope, electrolyte abnormality Acute, or Chronic, or Acute on Chronic? @ -Acute Uncomplicated (without systemic symptoms) or Complicated (systemic symptoms)? @ -Default Side effects of treatment? @ -No Exacerbation, Progression, or Severe Exacerbation? @ -No Poses a threat to life or bodily function? How? (Chest pain, USA, VA, pneumonia, PE, COPD, DKA, ARF, appy, cholecystitis, CVA, Diverticulitis, Homicidal, Suicidal, threat to staff... and all critical care pts) @ -[Low risk at this time (Justin Rendon) - Lab Data Lab Results 03/14/24 03/14/24 03/14/24 Range/Units 19:26 19:26 19:26 WBC 5.6 (3.8-10.6) k/uL RBC 4.39 (3.80-5.40) m/uL Hgb 13.6 (11.4-16.0) gm/dL Hct 41.0 (34.0-46.0) % MCV 93.5 (80.0-100.0) fL MCH 30.9 (25.0-35.0) pg MCHC 33.1 (31.0-37.0) g/dL RDW 12.0 (11.5-15.5) % Plt Count 283 (150-450) k/uL MPV 7.6 Neutrophils % 54 % Lymphocytes % 37 % Monocytes % 6 % Eosinophils % 1 % Basophils % 1 % Neutrophils # 3.0 (1.3-7.7) k/uL Lymphocytes # 2.1 (1.0-4.8) k/uL Monocytes # 0.3 (0-1.0) k/uL Eosinophils # 0.0 (0-0.7) k/uL Basophils # 0.0 (0-0.2) k/uL PT 10.3 (10.0-12.5) sec INR 0.9 (<1.2) APTT 25.2 (22.0-30.0) sec D-Dimer (<0.60) mg/L FEU Sodium 141 (137-145) mmol/L Potassium 2.6 L* (3.5-5.1) mmol/L Chloride 114 H (98-107) mmol/L Carbon Dioxide 21 L (22-30) mmol/L Anion Gap 6 mmol/L BUN 7 (7-17) mg/dL Creatinine 0.53 (0.52-1.04) mg/dL Est GFR (CKD-EPI)AfAm >90 (>60 ml/min/1.73 sqM) Est GFR (CKD-EPI)NonAf >90 (>60 ml/min/1.73 sqM) Glucose 116 H (74-99) mg/dL Calcium 7.5 L (8.4-10.2) mg/dL Magnesium (1.6-2.3) mg/dL Total Bilirubin 0.9 (0.2-1.3) mg/dL AST 18 (14-36) U/L ALT 11 (4-34) U/L Alkaline Phosphatase 41 (38-126) U/L Troponin I (0.000-0.034) ng/mL Total Protein 5.8 L (6.3-8.2) g/dL Albumin 3.4 L (3.5-5.0) g/dL Urine Color Urine Appearance (Clear) Urine RBC (0-5) /hpf Urine WBC (0-5) /hpf Urine Mucus (None) /hpf Urine HCG, Qual (Not Detectd) Urine Opiates Screen (NotDetected) Ur Oxycodone Screen (NotDetected) Urine Methadone Screen (NotDetected) Ur Barbiturates Screen (NotDetected) U Tricyclic Antidepress (NotDetected) Ur Phencyclidine Scrn (NotDetected) Ur Amphetamines Screen (NotDetected) U Methamphetamines Scrn (NotDetected) U Benzodiazepines Scrn (NotDetected) Urine Cocaine Screen (NotDetected) U Marijuana (THC) Screen (NotDetected) 03/14/24 03/14/24 03/14/24 Range/Units 19:26 19:26 21:33 WBC (3.8-10.6) k/uL RBC (3.80-5.40) m/uL Hgb (11.4-16.0) gm/dL Hct (34.0-46.0) % MCV (80.0-100.0) fL MCH (25.0-35.0) pg MCHC (31.0-37.0) g/dL RDW (11.5-15.5) % Plt Count (150-450) k/uL MPV Neutrophils % % Lymphocytes % % Monocytes % % Eosinophils % % Basophils % % Neutrophils # (1.3-7.7) k/uL Lymphocytes # (1.0-4.8) k/uL Monocytes # (0-1.0) k/uL Eosinophils # (0-0.7) k/uL Basophils # (0-0.2) k/uL PT (10.0-12.5) sec INR (<1.2) APTT (22.0-30.0) sec D-Dimer (<0.60) mg/L FEU Sodium (137-145) mmol/L Potassium (3.5-5.1) mmol/L Chloride (98-107) mmol/L Carbon Dioxide (22-30) mmol/L Anion Gap mmol/L BUN (7-17) mg/dL Creatinine (0.52-1.04) mg/dL Est GFR (CKD-EPI)AfAm (>60 ml/min/1.73 sqM) Est GFR (CKD-EPI)NonAf (>60 ml/min/1.73 sqM) Glucose (74-99) mg/dL Calcium (8.4-10.2) mg/dL Magnesium 1.5 L (1.6-2.3) mg/dL Total Bilirubin (0.2-1.3) mg/dL AST (14-36) U/L ALT (4-34) U/L Alkaline Phosphatase (38-126) U/L Troponin I <0.012 (0.000-0.034) ng/mL Total Protein (6.3-8.2) g/dL Albumin (3.5-5.0) g/dL Urine Color Red Urine Appearance Slightly Cloudy H (Clear) Urine RBC >182 H (0-5) /hpf Urine WBC 5 (0-5) /hpf Urine Mucus Rare H (None) /hpf Urine HCG, Qual (Not Detectd) Urine Opiates Screen (NotDetected) Ur Oxycodone Screen (NotDetected) Urine Methadone Screen (NotDetected) Ur Barbiturates Screen (NotDetected) U Tricyclic Antidepress (NotDetected) Ur Phencyclidine Scrn (NotDetected) Ur Amphetamines Screen (NotDetected) U Methamphetamines Scrn (NotDetected) U Benzodiazepines Scrn (NotDetected) Urine Cocaine Screen (NotDetected) U Marijuana (THC) Screen (NotDetected) 03/14/24 03/14/24 03/14/24 Range/Units 21:33 21:33 22:48 WBC (3.8-10.6) k/uL RBC (3.80-5.40) m/uL Hgb (11.4-16.0) gm/dL Hct (34.0-46.0) % MCV (80.0-100.0) fL MCH (25.0-35.0) pg MCHC (31.0-37.0) g/dL RDW (11.5-15.5) % Plt Count (150-450) k/uL MPV Neutrophils % % Lymphocytes % % Monocytes % % Eosinophils % % Basophils % % Neutrophils # (1.3-7.7) k/uL Lymphocytes # (1.0-4.8) k/uL Monocytes # (0-1.0) k/uL Eosinophils # (0-0.7) k/uL Basophils # (0-0.2) k/uL PT (10.0-12.5) sec INR (<1.2) APTT (22.0-30.0) sec D-Dimer <0.17 (<0.60) mg/L FEU Sodium (137-145) mmol/L Potassium (3.5-5.1) mmol/L Chloride (98-107) mmol/L Carbon Dioxide (22-30) mmol/L Anion Gap mmol/L BUN (7-17) mg/dL Creatinine (0.52-1.04) mg/dL Est GFR (CKD-EPI)AfAm (>60 ml/min/1.73 sqM) Est GFR (CKD-EPI)NonAf (>60 ml/min/1.73 sqM) Glucose (74-99) mg/dL Calcium (8.4-10.2) mg/dL Magnesium (1.6-2.3) mg/dL Total Bilirubin (0.2-1.3) mg/dL AST (14-36) U/L ALT (4-34) U/L Alkaline Phosphatase (38-126) U/L Troponin I (0.000-0.034) ng/mL Total Protein (6.3-8.2) g/dL Albumin (3.5-5.0) g/dL Urine Color Urine Appearance (Clear) Urine RBC (0-5) /hpf Urine WBC (0-5) /hpf Urine Mucus (None) /hpf Urine HCG, Qual Not Detected (Not Detectd) Urine Opiates Screen Not Detected (NotDetected) Ur Oxycodone Screen Not Detected (NotDetected) Urine Methadone Screen Not Detected (NotDetected) Ur Barbiturates Screen Not Detected (NotDetected) U Tricyclic Antidepress Not Detected (NotDetected) Ur Phencyclidine Scrn Not Detected (NotDetected) Ur Amphetamines Screen Not Detected (NotDetected) U Methamphetamines Scrn Not Detected (NotDetected) U Benzodiazepines Scrn Not Detected (NotDetected) Urine Cocaine Screen Not Detected (NotDetected) U Marijuana (THC) Screen Not Detected (NotDetected) 03/14/24 Range/Units 22:48 WBC (3.8-10.6) k/uL RBC (3.80-5.40) m/uL Hgb (11.4-16.0) gm/dL Hct (34.0-46.0) % MCV (80.0-100.0) fL MCH (25.0-35.0) pg MCHC (31.0-37.0) g/dL RDW (11.5-15.5) % Plt Count (150-450) k/uL MPV Neutrophils % % Lymphocytes % % Monocytes % % Eosinophils % % Basophils % % Neutrophils # (1.3-7.7) k/uL Lymphocytes # (1.0-4.8) k/uL Monocytes # (0-1.0) k/uL Eosinophils # (0-0.7) k/uL Basophils # (0-0.2) k/uL PT (10.0-12.5) sec INR (<1.2) APTT (22.0-30.0) sec D-Dimer (<0.60) mg/L FEU Sodium 140 (137-145) mmol/L Potassium 4.1 (3.5-5.1) mmol/L Chloride 114 H (98-107) mmol/L Carbon Dioxide 20 L (22-30) mmol/L Anion Gap 6 mmol/L BUN 10 (7-17) mg/dL Creatinine 0.61 (0.52-1.04) mg/dL Est GFR (CKD-EPI)AfAm >90 (>60 ml/min/1.73 sqM) Est GFR (CKD-EPI)NonAf >90 (>60 ml/min/1.73 sqM) Glucose 102 H (74-99) mg/dL Calcium 8.1 L (8.4-10.2) mg/dL Magnesium (1.6-2.3) mg/dL Total Bilirubin (0.2-1.3) mg/dL AST (14-36) U/L ALT (4-34) U/L Alkaline Phosphatase (38-126) U/L Troponin I (0.000-0.034) ng/mL Total Protein (6.3-8.2) g/dL Albumin (3.5-5.0) g/dL Urine Color Urine Appearance (Clear) Urine RBC (0-5) /hpf Urine WBC (0-5) /hpf Urine Mucus (None) /hpf Urine HCG, Qual (Not Detectd) Urine Opiates Screen (NotDetected) Ur Oxycodone Screen (NotDetected) Urine Methadone Screen (NotDetected) Ur Barbiturates Screen (NotDetected) U Tricyclic Antidepress (NotDetected) Ur Phencyclidine Scrn (NotDetected) Ur Amphetamines Screen (NotDetected) U Methamphetamines Scrn (NotDetected) U Benzodiazepines Scrn (NotDetected) Urine Cocaine Screen (NotDetected) U Marijuana (THC) Screen (NotDetected) Disposition <Elif Swann - Last Filed: 03/14/24 19:35> Is patient prescribed a controlled substance at d/c from ED?: No Time of Disposition: 23:31 <Justin Rendon - Last Filed: 03/14/24 23:31> Clinical Impression: Dehydration, Near syncope, Hypokalemia, Hypomagnesemia Disposition: ADMITTED IP TO THIS HOSP Condition: Stable Referrals: Lidya Perez MD [Primary Care Provider] - 1-2 days
[2024-03-14] MEDS: SODIUM CHLORIDE 0.9% 1,000 ML IV ONE ×2 (19:35→21:23)
[2024-03-14 19:54] LABS: Basophils % (A) 1 %; Eosinophils % (A) 1 %; HGB 13.6 gm/dL (11.4-16.0); Lymphocytes # (A) 2.1 k/uL (1.0-4.8); Lymphocytes % (A) 37 %; MCH 30.9 pg (25.0-35.0); MCHC 33.1 g/dL (31.0-37.0); MCV 93.5 fL (80.0-100.0); Mean Platelet Volume 7.6; Monocytes # (A) 0.3 k/uL (0-1.0); Monocytes % (A) 6 %; Neutrophils % (A) 54 %; Platelet Count 283 k/uL (150-450); RBC 4.39 m/uL (3.80-5.40); WBC 5.6 k/uL (3.8-10.6)
[2024-03-14 20:02] LABS: ALT 11 U/L (4-34); AST 18 U/L (14-36); African American GFR (CKD) >90 (>60 ml/min/1.73 sqM); Albumin 3.4 g/dL (3.5-5.0); Alkaline Phosphatase 41 U/L (38-126); Anion Gap 6 mmol/L; Blood Urea Nitrogen 7 mg/dL (7-17); Calcium 7.5 mg/dL (8.4-10.2); Carbon Dioxide 21 mmol/L (22-30); Chloride 114 mmol/L (98-107); Glucose 116 mg/dL (74-99); Non-African American GFR(CKD) >90 (>60 ml/min/1.73 sqM); Sodium 141 mmol/L (137-145); Total Bilirubin 0.9 mg/dL (0.2-1.3); Total Protein 5.8 g/dL (6.3-8.2)
[2024-03-14 20:25] LABS: Potassium 2.6 mmol/L (3.5-5.1)
[2024-03-14 20:46] LABS: INR 0.9 (<1.2); Partial Thromboplastin Time 25.2 sec (22.0-30.0); Prothrombin Time 10.3 sec (10.0-12.5)
[2024-03-14] MEDS: ONDANSETRON 4 MG/2 ML VIAL IVP STA (21:21)
[2024-03-14] MEDS: POTASSIUM CHLORIDE ER 20 MEQ TAB.ER PO STA (21:25)
[2024-03-14] MEDS: POTASSIUM CHLORIDE 10 MEQ in WATER FOR INJECTION 1 100ML.BAG IVPB SCH (21:26)
[2024-03-14 22:00] LABS: Appearance,Urine Slightly Cloudy (Clear); Color,Urine Red
--- NOTE | 2024-03-14 22:04 | XR ---
EXAMINATION TYPE: XR chest 2V DATE OF EXAM: 03/14/2024 9:56 PM CLINICAL INDICATION:Female, 38 years old with history of Syncope; [facility] COMPARISON: Chest radiographs from 06/04/2021. TECHNIQUE: XR chest 2V Frontal and lateral views of the chest. FINDINGS: Lungs/Pleura: There is no evidence of pleural effusion, focal consolidation, or pneumothorax. Pulmonary vascularity: Unremarkable. Heart/mediastinum: Cardiomediastinal silhouette is unremarkable. Musculoskeletal: No acute osseous pathology. IMPRESSION: No acute cardiopulmonary disease/process.
[2024-03-14 22:10] LABS: Mucus,Urine Rare /hpf; RBC,Urine >182 /hpf (0-5); WBC,Urine 5 /hpf (0-5)
[2024-03-14 22:28] LABS: Amphetamine Screen,Urine Not Detected (NotDetected); Barbiturate Screen,Urine Not Detected (NotDetected); Benzodiazepines Screen,Urine Not Detected (NotDetected); Cocaine Screen,Urine Not Detected (NotDetected); Methadone Screen, Urine Not Detected (NotDetected); Opiate Screen,Urine Not Detected (NotDetected); Oxycodone Screen, Urine Not Detected (NotDetected); Phencyclidine Screen,Urine Not Detected (NotDetected); Tricyclic Antidepressant,Urine Not Detected (NotDetected); Urn Cannabinoid Scrn Not Detected (NotDetected)
[2024-03-14] MEDS: MAGNESIUM SULFATE-D5W PMX 1 GM in DEXTROSE/WATER 1 100ML.BAG IVPB SCH (22:53)
[2024-03-14 23:16] LABS: African American GFR (CKD) >90 (>60 ml/min/1.73 sqM); Anion Gap 6 mmol/L; Blood Urea Nitrogen 10 mg/dL (7-17); Calcium 8.1 mg/dL (8.4-10.2); Carbon Dioxide 20 mmol/L (22-30); Chloride 114 mmol/L (98-107); Glucose 102 mg/dL (74-99); Non-African American GFR(CKD) >90 (>60 ml/min/1.73 sqM); Potassium 4.1 mmol/L (3.5-5.1); Sodium 140 mmol/L (137-145)
[2024-03-14] MEDS ORDERED: NALOXONE 0.4 MG/ML 1 ML VIAL IV PRN (23:27)
[2024-03-14] MEDS ORDERED: ACETAMINOPHEN TAB 325 MG TAB PO PRN (23:27)
[2024-03-15] MEDS: D5-0.9% NACL WITH KCL 20 MEQ/L 1,000 ML IV SCH (02:57)
[2024-03-15] MEDS: ONDANSETRON 4 MG/2 ML VIAL IVP PRN (09:35)
[2024-03-15] MEDS: PANTOPRAZOLE 40 MG/10 ML VIAL IVP SCH (09:36)
[2024-03-15] MEDS: MECLIZINE 25 MG TAB PO SCH (09:36)
[2024-03-15 09:47] LABS: Glucose,Whole Blood 110 mg/dL (70-110)
[2024-03-15 10:09] LABS: Basophils % (A) 0 %; Eosinophils % (A) 0 %; HCT 40.4 % (34.0-46.0); HGB 12.9 gm/dL (11.4-16.0); Lymphocytes # (A) 2.4 k/uL (1.0-4.8); Lymphocytes % (A) 38 %; MCH 30.3 pg (25.0-35.0); MCV 94.9 fL (80.0-100.0); Mean Platelet Volume 7.8; Monocytes # (A) 0.5 k/uL (0-1.0); Monocytes % (A) 8 %; Neutrophils # (A) 3.1 k/uL (1.3-7.7); Neutrophils % (A) 51 %; Platelet Count 271 k/uL (150-450); RBC 4.26 m/uL (3.80-5.40); RDW 12.1 % (11.5-15.5); WBC 6.1 k/uL (3.8-10.6)
[2024-03-15 10:19] LABS: African American GFR (CKD) >90 (>60 ml/min/1.73 sqM); Anion Gap 8 mmol/L; Blood Urea Nitrogen 5 mg/dL (7-17); Carbon Dioxide 23 mmol/L (22-30); Chloride 113 mmol/L (98-107); Glucose 108 mg/dL (74-99); Lipase 274 U/L (23-300); Magnesium 2.3 mg/dL (1.6-2.3); Non-African American GFR(CKD) >90 (>60 ml/min/1.73 sqM); Phosphorus 2.3 mg/dL (2.5-4.5); Potassium 4.3 mmol/L (3.5-5.1); Sodium 144 mmol/L (137-145)
[2024-03-15] MEDS: MAGNESIUM SULFATE-D5W PMX 1 GM in DEXTROSE/WATER 1 100ML.BAG IVPB SCH (10:37)
--- NOTE | 2024-03-15 12:50 | P.HPIM ---
History of Present Illness H&P Date: 03/15/24 Chief Complaint: Nausea vomiting * 38-year-old patient with past medical history significant for gastroesophageal reflux disease, history of migraine headache, history of anemia, vertigo, history of heavy menstrual flow, emergency department with complaints of nausea, dizziness. Patient states she is going to her menstrual cycle and reports shortness of breath and intermittent chest discomfort. Patient states her symptoms are similar to what she had before associated with a heavy menstrual cycle. Patient has also been complaining of diarrhea at the time of presentation. Patient states she has history of vertigo and has followed up outpatient with neurology as well * Initiated in ER included basic metabolic panel which showed sodium of 140 potassium 4.1 carbon dioxide 20 BUN 10 creatinine 0.61 calcium of 8.1 magnesium of 1.5 * Obtained showed WBC of 5.6 hemoglobin 13.6 platelet count of 283 * Patient had an EKG obtained in ER which showed sinus tachycardia,'s x-ray was negative for acute cardiopulmonary process * Patient admitted and will be started on fluid resuscitation, and symptom management REVIEW OF SYSTEMS: Dizziness, presyncope, heavy menstrual flow CONSTITUTIONAL: No fever, no malaise, no fatigue. HEENT: No recent visual problems or hearing problems. Denied any sore throat. CARDIOVASCULAR: No chest pain, orthopnea, PND, no palpitations, no syncope. PULMONARY: No shortness of breath, no cough, no hemoptysis. GASTROINTESTINAL: No diarrhea, no nausea, no vomiting, no abdominal pain. NEUROLOGICAL: No headaches, no weakness, no numbness. HEMATOLOGICAL: Denies any bleeding or petechiae. GENITOURINARY: Denies any burning micturition, frequency, or urgency. MUSCULOSKELETAL/RHEUMATOLOGICAL: Denies any joint pain, swelling, or any muscle pain. ENDOCRINE:Dizziness, presyncope, heavy menstrual flow PHYSICAL EXAMINATION: GENERAL: The patient is alert and oriented x3, not in any acute distress. Well developed, well nourished. HEENT: Pupils are round and equally reacting to light. EOMI. No scleral icterus. No conjunctival pallor. Normocephalic, atraumatic. No pharyngeal erythema. No thyromegaly. CARDIOVASCULAR: S1 and S2 present. No murmurs, rubs, or gallops. PULMONARY: Chest is clear to auscultation, no wheezing or crackles. ABDOMEN: Soft, nontender, nondistended, normoactive bowel sounds. No palpable organomegaly. MUSCULOSKELETAL: No joint swelling or deformity. EXTREMITIES: No cyanosis, clubbing, or pedal edema. NEUROLOGICAL: Gross neurological examination did not reveal any focal deficits. SKIN: No rashes. 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 IBS. 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 Previous ruptured ovarian cyst. History of Any Multi-Drug Resistant Organisms: None Reported Date of last positivie culture/infection: 2011 Past Surgical History: Section Additional Past Surgical History / Comment(s): D&C times 2 for spontaneous abortions., . X3. EGD 2019. Past Anesthesia/Blood Transfusion Reactions: Motion Sickness, Postoperative Nausea & Vomiting (PONV) Past Psychological History: No Psychological Hx Reported Smoking Status: Former smoker Past Alcohol Use History: Occasional Additional Past Alcohol Use History / Comment(s): SMOKED YOUNG TEENAGER. Past Drug Use History: None Reported - Past Family History Father Additional Family Medical History / Comment(s): Father has an autoimmune disorder. breast cancer PGM and PGGM. Mother Family Medical History: Cancer Additional Family Medical History / Comment(s): Renal cancer. Maternal aunt had breast cancer and renal cancer. Sister(s) Family Medical History: Cancer Additional Family Medical History / Comment(s): Precancerous breast cyst. Medications and Allergies Home Medications Medication Instructions Recorded Confirmed Type LORazepam [Ativan] 0.5 mg PO BID PRN 03/15/24 03/15/24 History Allergies Allergy/AdvReac Type Severity Reaction Status Date / Time amoxicillin [From Augmentin] AdvReac Nausea Verified 03/15/24 11:42 clavulanic acid AdvReac Nausea Verified 03/15/24 11:42 [From Augmentin] metoclopramide [From Reglan] AdvReac Rapid Verified 03/15/24 11:42 Heart Rate Physical Exam Vitals: Vital Signs Temp Pulse Pulse Resp BP BP Pulse Ox 03/15/24 07:34 97.9 F 62 16 100/65 100 03/15/24 02:05 98 F 67 18 103/54 99 03/15/24 00:47 74 16 03/14/24 23:45 98.2 F 66 17 105/80 98 03/14/24 22:48 81 15 123/75 97 03/14/24 21:33 100 32 H 146/87 100 03/14/24 19:23 98.3 F 90 18 173/84 100 Intake and Output 03/14/24 03/15/24 03/15/24 22:59 06:59 14:59 Other: # Voids 2 Weight 53.524 kg 53.524 kg Results CBC & Chem 7: 03/15/24 09:25 03/15/24 09:25 Labs: Abnormal Lab Results - Last 24 Hours (Table) 03/14/24 03/14/24 03/14/24 Range/Units 19:26 19:26 21:33 Potassium 2.6 L* (3.5-5.1) mmol/L Chloride 114 H (98-107) mmol/L Carbon Dioxide 21 L (22-30) mmol/L Glucose 116 H (74-99) mg/dL Calcium 7.5 L (8.4-10.2) mg/dL Magnesium 1.5 L (1.6-2.3) mg/dL Total Protein 5.8 L (6.3-8.2) g/dL Albumin 3.4 L (3.5-5.0) g/dL Urine Appearance Slightly Cloudy H (Clear) Urine RBC >182 H (0-5) /hpf Urine Mucus Rare H (None) /hpf 03/14/24 Range/Units 22:48 Potassium (3.5-5.1) mmol/L Chloride 114 H (98-107) mmol/L Carbon Dioxide 20 L (22-30) mmol/L Glucose 102 H (74-99) mg/dL Calcium 8.1 L (8.4-10.2) mg/dL Magnesium (1.6-2.3) mg/dL Total Protein (6.3-8.2) g/dL Albumin (3.5-5.0) g/dL Urine Appearance (Clear) Urine RBC (0-5) /hpf Urine Mucus (None) /hpf Thrombosis Risk Factor Assmnt - Choose All That Apply Any of the Below Risk Factors Present?: No Other Risk Factors: No Other congenital or acquired thrombophilia - If yes, enter type in comment: No Thrombosis Risk Factor Assessment Level: Very Low Risk
[2024-03-15] MEDS: PROCHLORPERAZINE 5 MG TAB PO PRN (13:52)
[2024-03-15] MEDS: LORazepam 0.5 MG TAB PO PRN (13:58)
[2024-03-15] MEDS ORDERED: Potassium Replacement Protocol 1 EACH MISC MISCELLANE PRN (14:24)
[2024-03-15] MEDS: POTASSIUM CHLORIDE ER 20 MEQ TAB.ER PO SCH (14:29)
[2024-03-15] MEDS ORDERED: IBUPROFEN 600 MG TAB PO PRN (14:43)
[2024-03-16 04:49] LABS: Magnesium 2.1 mg/dL (1.6-2.3)
[2024-03-16 04:52] LABS: HCG,Qualitative Serum Not Detected
[2024-03-16 07:37] LABS: Glucose,Whole Blood 107 mg/dL (70-110)
[2024-03-16] MEDS: ENOXAPARIN 40 MG/0.4 ML SYRINGE SQ SCH (08:31)
[2024-03-16 08:54] LABS: Basophils % (A) 0.5 %; Eosinophils % (A) 1.4 %; HCT 33.9 % (37.2-46.3); Lymphocytes % (A) 39.7 %; MCH 30.9 pg (27.0-32.0); MCHC 32.4 g/dL (32.0-37.0); MCV 95.2 FL (80.0-97.0); Mean Platelet Volume 10.3 FL (9.5-12.2); Monocytes % (A) 9.4 %; NRBC Per 100 WBC 0 X 10*3/uL (0.00-0.01); Neutrophils % (A) 48.8 %; Platelet Count 202 X 10*3/uL (140-440); RBC 3.56 X 10*6/uL (4.10-5.20); RDW 12.1 % (11.5-14.5); WBC 5.64 X 10*3/uL (4.50-10.00)
[2024-03-16 08:55] LABS: Basophils # (A) 0.03 X 10*3/uL (0.00-0.10); Eosinophils # (A) 0.08 X 10*3/uL (0.04-0.35); Lymphocytes # (A) 2.24 X 10*3/uL (0.90-5.00); Monocytes # (A) 0.53 X 10*3/uL (0.20-1.00); Neutrophils # (A) 2.75 X 10*3/uL (1.80-7.70)
[2024-03-16 09:52] VITALS: RESP 20
[2024-03-16 10:15] LABS: Blood Urea Nitrogen 6.8 mg/dL (9.0-27.0); Glucose 110 mg/dL (70-110)
[2024-03-16 10:16] LABS: Calcium 8.6 mg/dL (8.7-10.3); Carbon Dioxide 19.6 mmol/L (21.6-31.8); Chloride 110 mmol/L (96-109); Potassium 4.5 mmol/L (3.5-5.5); Sodium 140 mmol/L (135-145)
--- NOTE | 2024-03-16 12:26 | P.PN ---
Subjective * 38-year-old patient with past medical history significant for gastroesophageal reflux disease, history of migraine headache, history of anemia, vertigo, history of heavy menstrual flow, emergency department with complaints of nausea, dizziness. Patient states she is going to her menstrual cycle and reports shortness of breath and intermittent chest discomfort. Patient states her symptoms are similar to what she had before associated with a heavy menstrual cycle. Patient has also been complaining of diarrhea at the time of presentation. Patient states she has history of vertigo and has followed up outpatient with neurology as well * Initiated in ER included basic metabolic panel which showed sodium of 140 potassium 4.1 carbon dioxide 20 BUN 10 creatinine 0.61 calcium of 8.1 magnesium of 1.5 * Obtained showed WBC of 5.6 hemoglobin 13.6 platelet count of 283 * Patient had an EKG obtained in ER which showed sinus tachycardia,'s x-ray was negative for acute cardiopulmonary process * Patient admitted and will be started on fluid resuscitation, and symptom management 03/16/2024 Patient is awake and alert She still complaining from dizziness, she describes it as room spinning and about passing out, she thought she was going to faint this morning She denies chest pain or dyspnea She is complaining from nausea She states that she has the symptoms on and off for about 4-week, she has no energy She states that she ate good last night but little this morning no abdominal pain, she has regular bowel movement this morning last week she had diarrhea She states she has history of heavy menstrual cycle for 2 years, she currently denies any specific symptoms regarding her menstrual cycle, no vaginal discharge or itching She denies dysuria but she states she is peeing a lot on admission her potassium was low 2.6, currently improved 4.5 Vitals are stable, was slightly blood pressure low during the night but not currently improved Patient is afebrile Labs showing mild anemia with hemoglobin 11. Carbon dioxide was 19.6 Currently she is on D5 normal saline 75 mL/h and she was started on meclizine and ibuprofen Objective - Vital Signs Vital signs: Vital Signs Temp 97.6 F 03/16/24 08:10 Pulse 72 03/16/24 08:10 Resp 20 03/16/24 08:10 BP 136/78 03/16/24 08:10 Pulse Ox 100 03/16/24 08:10 FiO2 Intake & Output 03/15/24 03/16/24 03/16/24 18:59 06:59 18:59 Other: Voiding Method Toilet # Voids 3 4 - Exam GENERAL: The patient is alert and oriented x3, not in any acute distress. Well developed, well nourished. HEENT: Pupils are round and equally reacting to light. EOMI. No scleral icterus. No conjunctival pallor. Normocephalic, atraumatic. No pharyngeal erythema. No thyromegaly. CARDIOVASCULAR: S1 and S2 present. No murmurs, rubs, or gallops. PULMONARY: Chest is clear to auscultation, no wheezing , no crackles. ABDOMEN: Soft, nontender, nondistended, normoactive bowel sounds. No palpable organomegaly. MUSCULOSKELETAL: No joint swelling or deformity. EXTREMITIES: No cyanosis, clubbing, or pedal edema. NEUROLOGICAL: Gross neurological examination did not reveal any focal deficits. SKIN: No rashes. no petechiae. - Labs CBC & Chem 7: 03/16/24 03:55 03/16/24 03:55 Labs: Abnormal Lab Results - Last 24 Hours (Table) 03/16/24 03/16/24 Range/Units 03:55 03:55 RBC 3.56 L (4.10-5.20) X 10*6/uL Hgb 11.0 L (12.0-15.0) g/dL Hct 33.9 L (37.2-46.3) % Chloride 110 H (96-109) mmol/L Carbon Dioxide 19.6 L (21.6-31.8) mmol/L BUN 6.8 L (9.0-27.0) mg/dL BUN/Creatinine Ratio 8.50 L (12.00-20.00) Ratio Calcium 8.6 L (8.7-10.3) mg/dL Assessment and Plan Assessment: * dizziness which pt describes as room spining and about to faint ( acute on chronic) * increased frequecy of urination * possible metabilic acidemia and possilbe acidosis * Hypermenorrhea , chronic for 2 years * Abnormality with hypomagnesemia and hypokalemia * Gastroesophageal reflux disease Plan: We will repeat urine analysis, check bladder scan Check orthostatic vitals Start sodium bicarb pill Neurology consult Continue with IV hydration Labs and medication were reviewed.. Continue same treatment. Continue with symptomatic treatment. Resume home medication. Monitor labs and vitals. DVT and GI prophylaxis. Further recommendations as per clinical course of the patient DVT prophylaxis: Subcutaneous lovenox GI Prophylaxis: Ppi Prognosis is guarded
[2024-03-16 13:15] LABS: VBG PH 7.32 (7.31-7.41)
[2024-03-16 13:22] VITALS: BP 114/74
[2024-03-16] MEDS: SODIUM BICARBONATE TAB 650 MG TAB PO SCH (13:32)
[2024-03-16 13:53] LABS: Appearance,Urine Clear (Clear); Bilirubin,Urine Negative (Negative); Blood,Urine Moderate (Negative); Color,Urine Light Yellow; Glucose,Urine (UA) Negative (Negative); Ketones,Urine Negative (Negative); Leukocyte Esterase,Urine Negative (Negative); Nitrite,Urine Negative (Negative); PH, Urine 7.5 (5.0-8.0); Protein,Urine Negative (Negative); RBC,Urine >182 /hpf (0-5); Specific Gravity,Urine 1.012 (1.001-1.035); Squamous Epithelial Cell,Urine <1 /hpf (0-4); Urobilinogen,Urine <2.0 mg/dL (<2.0); WBC,Urine 3 /hpf (0-5)
[2024-03-16 15:13] VITALS: PULSE 73; TEMP 98.7
== END 2024-03-16 14:54 | disposition left against medical advice (07) ==
LOC: EC 19:05 → 6NMEDSUR 23:28 → 4SSUR 23:50
PROVIDERS: ADMIT Hospitalist; ATTEND Hospitalist
DX: R42 Dizziness and giddiness (principal); Z53.29 Procedure and treatment not carried out because of patient's decision for other reasons; E87.6 Hypokalemia; E86.0 Dehydration; E83.42 Hypomagnesemia; R55 Syncope and collapse; N92.0 Excessive and frequent menstruation with regular cycle; R19.7 Diarrhea, unspecified; D50.9 Iron deficiency anemia, unspecified; K21.9 Gastro-esophageal reflux disease without esophagitis; Z87.891 Personal history of nicotine dependence; Z79.899 Other long term (current) drug therapy; Z88.0 Allergy status to penicillin
CPT/HCPCS: 96376; 96366 ×3; 96372; 96375 ×2; 96361; 96365; 96367; 99285; 36415; 93005; 85379; 80053; 80048 ×3; 84443; 82533; 82803; 83690; 83735 ×3; 84100; 84132; 84484; 85025 ×3; 85610; 85730; 81001 ×2; 81025; 84703; 80306; 87636; 71046; G0378 ×3; S0183; J2405 ×3; J1650; J3475 ×2; J3480 ×2; C9113 ×2

== ENCOUNTER 2024-03-19 23:41 | Emergency (ER) | payer BC ==
[2024-03-20 00:15] VITALS: RESP 18; TEMP 99.1
[2024-03-20 00:52] LABS: Basophils % (A) 1 %; Eosinophils # (A) 0.1 k/uL (0-0.7); Eosinophils % (A) 1 %; HCT 39.3 % (34.0-46.0); HGB 13.2 gm/dL (11.4-16.0); Lymphocytes # (A) 2.1 k/uL (1.0-4.8); Lymphocytes % (A) 30 %; MCH 31.1 pg (25.0-35.0); MCHC 33.5 g/dL (31.0-37.0); MCV 92.9 fL (80.0-100.0); Mean Platelet Volume 7.8; Monocytes # (A) 0.5 k/uL (0-1.0); Monocytes % (A) 7 %; Neutrophils # (A) 4.1 k/uL (1.3-7.7); Neutrophils % (A) 59 %; Platelet Count 273 k/uL (150-450); RBC 4.23 m/uL (3.80-5.40); WBC 6.9 k/uL (3.8-10.6)
[2024-03-20] MEDS: SODIUM CHLORIDE 0.9% 1,000 ML IV ONE (00:53)
[2024-03-20 00:56] LABS: ALT 13 U/L (4-34); AST 26 U/L (14-36); African American GFR (CKD) >90 (>60 ml/min/1.73 sqM); Albumin 4.8 g/dL (3.5-5.0); Alkaline Phosphatase 57 U/L (38-126); Anion Gap 8 mmol/L; Blood Urea Nitrogen 13 mg/dL (7-17); Calcium 9.7 mg/dL (8.4-10.2); Carbon Dioxide 26 mmol/L (22-30); Chloride 106 mmol/L (98-107); Glucose 126 mg/dL (74-99); Magnesium 1.8 mg/dL (1.6-2.3); Non-African American GFR(CKD) >90 (>60 ml/min/1.73 sqM); Phosphorus 4.4 mg/dL (2.5-4.5); Potassium 4.4 mmol/L (3.5-5.1); Sodium 140 mmol/L (137-145); Total Bilirubin 1.2 mg/dL (0.2-1.3); Total Protein 7.6 g/dL (6.3-8.2)
[2024-03-20] MEDS: ONDANSETRON 4 MG/2 ML VIAL IVP STA (01:22)
[2024-03-20] MEDS: KETOROLAC 15 MG/ML 1 ML VIAL IVP STA (01:27)
[2024-03-20] MEDS: diphenhydrAMINE 50 MG/ML 1 ML VIAL IVP STA (01:31)
[2024-03-20] MEDS: SODIUM CHLORIDE 0.9% 1,000 ML IV STA (01:39)
[2024-03-20] MEDS ORDERED: SUMAtriptan succinate 6 MG/0.5 ML VIAL SQ STA (01:55)
--- NOTE | 2024-03-20 02:17 | ED ---
General Adult HPI - General Chief complaint: Dizziness Stated complaint: dizziness,nausea,chest pain Time Seen by Provider: 03/20/24 00:11 Source: patient Mode of arrival: ambulatory Limitations: no limitations - History of Present Illness Initial comments: This patient is a 38-year-old woman who presents with a constellation of complaints including feeling dizzy, having headache and some chest tightness. Symptoms have come on over the course of last night into this morning. The patient denies neurologic symptoms, no change in vision speech or swallowing. No weakness or numbness. Patient states that the headache is probably most intense of any headache that she has had. -: hour(s) Location: head, chest Radiation: non-radiation Quality: aching Consistency: constant Improves with: none Worsens with: none Associated Symptoms: chest pain, headaches, nausea/vomiting, other (Dizziness) - Related Data Home Medications Medication Instructions Recorded Confirmed LORazepam [Ativan] 0.5 mg PO BID PRN 03/15/24 03/15/24 Allergies Allergy/AdvReac Type Severity Reaction Status Date / Time amoxicillin [From Augmentin] AdvReac Nausea Verified 03/19/24 23:48 clavulanic acid AdvReac Nausea Verified 03/19/24 23:48 [From Augmentin] metoclopramide [From Reglan] AdvReac Rapid Verified 03/19/24 23:48 Heart Rate Review of Systems ROS Statement: Those systems with pertinent positive or pertinent negative responses have been documented in the HPI. ROS Other: All systems not noted in ROS Statement are negative. Constitutional: Denies: fever, chills, weakness Eyes: Denies: vision change ENT: Denies: ear pain, hearing loss Respiratory: Denies: cough, dyspnea, wheezes Cardiovascular: Reports: chest pain. Denies: palpitations, orthopnea, edema, syncope Gastrointestinal: Reports: nausea. Denies: abdominal pain, vomiting, diarrhea, constipation Genitourinary: Denies: dysuria, hematuria Musculoskeletal: Denies: back pain Skin: Denies: rash Neurological: Reports: headache. Denies: weakness, numbness, confusion, abnormal gait Past Medical History Past Medical History: GERD/Reflux Additional Past Medical History / Comment(s): MIGRAINES, HX OF Peptic Ulcer, ANEMIA and vertigo. IBS. 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 Previous ruptured ovarian cyst. History of Any Multi-Drug Resistant Organisms: None Reported Date of last positivie culture/infection: 2011 Past Surgical History: Section Additional Past Surgical History / Comment(s): D&C times 2 for spontaneous abortions., . X3. EGD 2019. Past Anesthesia/Blood Transfusion Reactions: Motion Sickness, Postoperative Nausea & Vomiting (PONV) Past Psychological History: No Psychological Hx Reported Smoking Status: Former smoker Past Alcohol Use History: Occasional Past Drug Use History: None Reported - Past Family History Father Additional Family Medical History / Comment(s): Father has an autoimmune disord er. breast cancer PGM and PGGM. Mother Family Medical History: Cancer Additional Family Medical History / Comment(s): Renal cancer. Maternal aunt had breast cancer and renal cancer. Sister(s) Family Medical History: Cancer Additional Family Medical History / Comment(s): Precancerous breast cyst. General Exam Limitations: no limitations General appearance: alert, in no apparent distress Head exam: Present: atraumatic, normocephalic Eye exam: Present: normal appearance. Absent: scleral icterus, conjunctival injection ENT exam: Present: normal oropharynx Neck exam: Present: normal inspection, full ROM Respiratory exam: Present: normal lung sounds bilaterally. Absent: respiratory distress, wheezes, rales, rhonchi, stridor, accessory muscle use Cardiovascular Exam: Present: regular rate, normal rhythm, normal heart sounds. Absent: systolic murmur, diastolic murmur, rubs, gallop GI/Abdominal exam: Present: soft. Absent: distended, tenderness, guarding, rebound, rigid, mass Extremities exam: Present: normal inspection, normal capillary refill. Absent: pedal edema, calf tenderness Back exam: Present: normal inspection. Absent: CVA tenderness (R), CVA tenderness (L) Neurological exam: Present: alert, oriented X3, CN II-XII intact. Absent: motor sensory deficit Skin exam: Present: warm, dry, intact, normal color. Absent: rash Course Vital Signs 03/19/24 03/20/24 03/20/24 23:47 00:12 02:00 Temperature 99.1 F Pulse Rate 115 H 105 H 100 Respiratory 18 18 18 Rate Blood Pressure 142/101 121/87 130/87 O2 Sat by Pulse 99 98 100 Oximetry 03/20/24 04:00 Temperature Pulse Rate 71 Respiratory 18 Rate Blood Pressure 99/58 O2 Sat by Pulse 98 Oximetry EKG Findings - EKG Results: EKG: interpreted by ERMD, sinus rhythm EKG shows: tachycardia (Rate 109 bpm) - Blocks, [place], Hypertrophy, ST Abn: AV and intraventricular conduction: right bundle branch block (fixed/intermittent, complete/incomplete) (Incomplete) QRS axis and voltage: right axis deviation (+90 to +180) (Borderline right axis) Medical Decision Making - Medical Decision Making The patient had CT of the brain that I interpreted as negative for acute intracranial hemorrhage or acute bony trauma. Criteria is for worst headache of life. The patient had a number of migraine medications and then noted significant improvement, was feeling better and wanted to go home. We discussed appropriate further care and follow-up as well as return parameters. Was pt. sent in by a medical professional or institution (, [facility], CERTIFIED NURSES' AIDE, urgent care, hospital, or snf...) When possible be specific @ -[No] Did you speak to anyone other than the patient for history (EMS, parent, family, police, friend...)? What history was obtained from this source @ -The patient's partner gave history Did you review nursing and triage notes (agree or disagree)? Why? @ -[I reviewed and agree with nursing and triage notes] Were old charts reviewed (outside hosp., previous admission, EMS record, old EKG, old radiological studies, urgent care reports/EKG's, snf records)? Report findings @ -[No old charts were reviewed] Differential Diagnosis (chest pain, altered mental status, abdominal pain women, abdominal pain men, vaginal bleeding, weakness, fever, dyspnea, syncope, headache, dizziness, GI bleed, back pain, seizure, CVA, palpatations, mental health, musculoskeletal)? @ -Differential Headache: Migraine, tension, cluster, carbon monoxide, central venous thrombosis, pension karma temporal arteritis, acute closure glaucoma, intercranial hemorrhage, ma stoiditis, sinusitis, head injury, this is not meant to be an all-inclusive list. EKG interpreted by me (3pts min.). @ -I interpreted as above X-rays interpreted by me (1pt min.). @ -[None done] CT interpreted by me (1pt min.). @ -I interpreted as above U/S interpreted by me (1pt. min.). @ -[None done] What testing was considered but not performed or refused? (CT, X-rays, U/S, labs)? Why? @ -[None] What meds were considered but not given or refused? Why? @ -[None] Did you discuss the management of the patient with other professionals (professionals i.e. , PA, CERTIFIED NURSES' AIDE, lab, RT, psych nurse, social worker delinquency prevention, housing court judge, teacher, contract officer, rehabilitation caseworker)? Give summary @ -[No] Was smoking cessation discussed for >3mins.? @ -[No] Was critical care preformed (if so, how long)? @ -[No] Were there social determinants of health that impacted care today? How? (Homelessness, low income, unemployed, alcoholism, drug addiction, transportation, low edu. Level, literacy, decrease access to med. care, [facility], rehab)? @ -[No] Was there de-escalation of care discussed even if they declined (Discuss DNR or withdrawal of care, Hospice)? DNR status @ -[No] What co-morbidities impacted this encounter? (DM, HTN, Smoking, COPD, CAD, Cancer, CVA, ARF, Chemo, Hep., AIDS, mental health diagnosis, sleep apnea, morbid obesity)? @ -[History of migraines Was patient admitted / discharged? Hospital course, mention meds given and route, prescriptions, significant lab abnormalities, going to OR and other pertinent info. @ -See above Undiagnosed new problem with uncertain prognosis? @ -[No] Drug Therapy requiring intensive monitoring for toxicity (Heparin, Nitro, Insulin, Cardizem)? @ -[No] Were any procedures done? @ -[No] Diagnosis/symptom? @ -Acute headache Acute, or Chronic, or Acute on Chronic? @ -[Acute Uncomplicated (without systemic symptoms) or Complicated (systemic symptoms)? @ -Uncomplicated Side effects of treatment? @ -[No] Exacerbation, Progression, or Severe Exacerbation? @ -[No] Poses a threat to life or bodily function? How? (Chest pain, [place], [place], pneumonia, PE, COPD, DKA, ARF, appy, cholecystitis, CVA, Diverticulitis, Homicidal, Suicidal, threat to staff... and all critical care pts) @ -[No] - Lab Data Result diagrams: 03/20/24 00:07 03/20/24 00:07 Lab Results 03/20/24 03/20/24 03/20/24 Range/Units 00:07 00:07 00:07 WBC 6.9 (3.8-10.6) k/uL RBC 4.23 (3.80-5.40) m/uL Hgb 13.2 (11.4-16.0) gm/dL Hct 39.3 (34.0-46.0) % MCV 92.9 (80.0-100.0) fL MCH 31.1 (25.0-35.0) pg MCHC 33.5 (31.0-37.0) g/dL RDW 12.0 (11.5-15.5) % Plt Count 273 (150-450) k/uL MPV 7.8 Neutrophils % 59 % Lymphocytes % 30 % Monocytes % 7 % Eosinophils % 1 % Basophils % 1 % Neutrophils # 4.1 (1.3-7.7) k/uL Lymphocytes # 2.1 (1.0-4.8) k/uL Monocytes # 0.5 (0-1.0) k/uL Eosinophils # 0.1 (0-0.7) k/uL Basophils # 0.0 (0-0.2) k/uL Sodium 140 (137-145) mmol/L Potassium 4.4 (3.5-5.1) mmol/L Chloride 106 (98-107) mmol/L Carbon Dioxide 26 (22-30) mmol/L Anion Gap 8 mmol/L BUN 13 (7-17) mg/dL Creatinine 0.64 (0.52-1.04) mg/dL Est GFR (CKD-EPI)AfAm >90 (>60 ml/min/1.73 sqM) Est GFR (CKD-EPI)NonAf >90 (>60 ml/min/1.73 sqM) Glucose 126 H (74-99) mg/dL Plasma Lactic Acid Vishnu 1.3 (0.7-2.0) mmol/L Calcium 9.7 (8.4-10.2) mg/dL Phosphorus 4.4 (2.5-4.5) mg/dL Magnesium 1.8 (1.6-2.3) mg/dL Total Bilirubin 1.2 (0.2-1.3) mg/dL AST 26 (14-36) U/L ALT 13 (4-34) U/L Alkaline Phosphatase 57 (38-126) U/L Troponin I (0.000-0.034) ng/mL Total Protein 7.6 (6.3-8.2) g/dL Albumin 4.8 (3.5-5.0) g/dL 03/20/24 Range/Units 00:07 WBC (3.8-10.6) k/uL RBC (3.80-5.40) m/uL Hgb (11.4-16.0) gm/dL Hct (34.0-46.0) % MCV (80.0-100.0) fL MCH (25.0-35.0) pg MCHC (31.0-37.0) g/dL RDW (11.5-15.5) % Plt Count (150-450) k/uL MPV Neutrophils % % Lymphocytes % % Monocytes % % Eosinophils % % Basophils % % Neutrophils # (1.3-7.7) k/uL Lymphocytes # (1.0-4.8) k/uL Monocytes # (0-1.0) k/uL Eosinophils # (0-0.7) k/uL Basophils # (0-0.2) k/uL Sodium (137-145) mmol/L Potassium (3.5-5.1) mmol/L Chloride (98-107) mmol/L Carbon Dioxide (22-30) mmol/L Anion Gap mmol/L BUN (7-17) mg/dL Creatinine (0.52-1.04) mg/dL Est GFR (CKD-EPI)AfAm (>60 ml/min/1.73 sqM) Est GFR (CKD-EPI)NonAf (>60 ml/min/1.73 sqM) Glucose (74-99) mg/dL Plasma Lactic Acid Vishnu (0.7-2.0) mmol/L Calcium (8.4-10.2) mg/dL Phosphorus (2.5-4.5) mg/dL Magnesium (1.6-2.3) mg/dL Total Bilirubin (0.2-1.3) mg/dL AST (14-36) U/L ALT (4-34) U/L Alkaline Phosphatase (38-126) U/L Troponin I <0.012 (0.000-0.034) ng/mL Total Protein (6.3-8.2) g/dL Albumin (3.5-5.0) g/dL Disposition Clinical Impression: Headache, Dizziness Disposition: HOME SELF-CARE Condition: Good Instructions (If sedation given, give patient instructions): Acute Headache (ED), Dizziness (ED) Is patient prescribed a controlled substance at d/c from ED?: No Referrals: Lidya Perez MD [Primary Care Provider] - 1-2 days
[2024-03-20] MEDS: DIHYDROERGOTAMINE MESYLATE 1 MG/ML 1 ML AMP IM STA (02:33)
--- NOTE | 2024-03-20 03:38 | CT ---
EXAM: CT Head Without Intravenous Contrast CLINICAL HISTORY: ITS.REASON CT Reason: worst headache of Life TECHNIQUE: Axial computed tomography images of the head/brain without intravenous contrast. CTDI is 49.2 mGy and DLP is 1138.4 mGy-cm. This CT exam was performed using one or more of the following dose reduction techniques: automated exposure control, adjustment of the mA and/or kV according to patient size, and/or use of iterative reconstruction technique. COMPARISON: No relevant prior studies available. FINDINGS: Brain: No hemorrhage or mass effect. Ventricles: No hydrocephalus. Bones/joints: Unremarkable. Soft tissues: Unremarkable. Sinuses: No air fluid level. Mastoid air cells: Clear. IMPRESSION: No acute hemorrhage, hydrocephalus, or mass effect.
[2024-03-20 04:52] VITALS: BP 99/58; PULSE 71
== END 2024-03-20 04:05 | disposition home or self-care (01) ==
LOC: EC 23:41
DX: R42 Dizziness and giddiness (principal); R51.9 Headache, unspecified; Z87.891 Personal history of nicotine dependence; Z88.0 Allergy status to penicillin; Z88.8 Allergy status to other drugs, medicaments and biological substances
CPT/HCPCS: 36415; 93005; 80053; 83605; 83735; 84100; 84484; 85025; 70450; 99284; 96374; 96375 ×3; 96361 ×3; 96372; J1110; J1200; J3360; J2405; J1885

== ENCOUNTER → 2024-10-10 | Outpatient (CLI) | payer BC ==
[2024-10-10 16:18] LABS: Calcium 9.2 mg/dL (8.7-10.3); Carbon Dioxide 26.4 mmol/L (21.6-31.8); Chloride 106 mmol/L (96-109); Glucose 91 mg/dL (70-110); Potassium 4.3 mmol/L (3.5-5.5); Sodium 141 mmol/L (135-145)
== END | disposition home or self-care (01) ==
LOC: LABWHC1 09:10
PROVIDERS: ATTEND Family Medicine
DX: E87.6 Hypokalemia (principal); R11.0 Nausea
CPT/HCPCS: 36415; 80048

== ENCOUNTER → 2025-03-17 | Outpatient (CLI) | payer BC ==
--- NOTE | 2025-03-17 13:48 | US ---
EXAMINATION TYPE: US liver DATE OF EXAM: 03/17/2025 COMPARISON: NONE CLINICAL INDICATION: Female, 39 years old with history of E80.6 OTHER DISORDERS OF BILIRUBIN METABOLI SM; elevated bilirubin TECHNIQUE: Grayscale and color Doppler imaging of the right upper quadrant was performed. FINDINGS: EXAM MEASUREMENTS: Liver Length: 12.5 cm Gallbladder Wall: .2 cm CBD: .4 cm Right Kidney: 8.9 x 3.6 x 3.6 cm HEAD OF MATHEMATICS NOTES: Pancreas: wnl Liver: wnl Gallbladder: No stones seen Evidence for sonographic [place]'s sign: No CBD: wnl Right Kidney: Anechoic area lower pole .7 x .6 x 1.0 cm. IMPRESSION: Right renal cyst otherwise unremarkable study [facility], , 03/17/2025 1:46 PM
== END | disposition home or self-care (01) ==
LOC: RADUSWWP 13:14
PROVIDERS: ATTEND Family Medicine
DX: E80.6 Other disorders of bilirubin metabolism (principal); N28.1 Cyst of kidney, acquired
CPT/HCPCS: 76705